=== PATIENT | male | born 1975 | race Caucasian/White ===

== ENCOUNTER 2020-10-15 15:00 | Outpatient (RCR) | payer OTHER, SELFPAY ==
--- NOTE | 2020-09-24 15:13 | PTOPEVAL ---
Thank you for referring Daniel Jackson II to [facility].? The patient is scheduled to be seen for therapy? 2 x/week for 5 weeks. Please review, sign, date and return this plan of care NABILA. I agree with and certify that the following plan of care is medically necessary. Referring Physician Date Attending Provider: John Gentile MD Referring Provider: *PT Outpatient Evaluation Start: 09/24/20 13:52 Freq: Status: Active Protocol: Document 09/24/20 13:52 NICO (Rec: 09/24/20 14:40 NICO [email or web address]) Therapy Assessment Status Assessment Status Assessment Status Evaluation Outpatient Past Medical History Past Medical History Source of Past Medical History Patient,Recalled from Previous Visit, Confirmed with Patient /Family Cardiovascular History Hx Hypertension Yes Gastrointestinal History Hx Gastroesophageal Reflux Disease Yes Musculoskeletal History Hx Orthopedic Surgery Yes: radial tunnel and tennis elbow surgery~7 yrs ago Evaluation Information Problem Diagnosis right knee pain Onset 07/07 Additional Evaluation Detail knee injection 09/04/20 Subjective Information Reports 3 months ago or so was Query Text:As Reported By Patient/ 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 Around that time he developed this posterior pain in his right knee which has been unremitting. He reports the injection helped his pain significantly. But he cont to have difficulty getting off of any surfaces or on/off the floor. Reports a ripping/ stabbing pain in the posterior right knee region. He reports limitations with walking, prolonged standing, steps, squating and work related task. He would like to return to his normal work and recreational activities without the pain. Pain Assessment Timing of Pain Assessment Timing of Pain Assessment Assessment Pain Scale Pain Scale Used Numeric (1 - 10) Self Report Pain Assessment Right Knee(s) Reported Pain Level 4 Pain Description Stabbing Greatest Pain Intensity 7 Pain Score Pain Score
--- NOTE | 2020-10-08 13:57 | PCPTNOTE ---
Patient called & cancelled scheduled appointment this week due to being in contact with someone with COVID-19.
--- NOTE | 2020-10-15 16:04 | PTOPEVAL ---
Thank you for referring Daniel Jackson II to [facility].? Pt has been seen for 6 therapy visits from 09/24/20-10/15/20. He missed 2 visits due to COVID isolation. He demonstrates limited progress with therapy goals, due to cont knee pain with functional work related task. He is indep with HEP at this time. No additional therapy scheduled at this time. Will hold chart open for 2 weeks. Please review, sign, date and return this plan of care NABILA. I agree with and certify that the following plan of care is medically necessary. Referring Physician Date Attending Provider: John Gentile MD *PT Outpatient Evaluation Start: 09/24/20 13:52 Freq: Status: Active Protocol: Document 10/15/20 15:00 NICO (Rec: 10/15/20 15:53 CAP [id number]) Therapy Assessment Status Assessment Status Assessment Status Re-evaluation Outpatient Past Medical History Past Medical History Source of Past Medical History Patient,Recalled from Previous Visit, Confirmed with Patient /Family Cardiovascular History Hx Hypertension Yes Gastrointestinal History Hx Gastroesophageal Reflux Disease Yes Musculoskeletal History Hx Orthopedic Surgery Yes: radial tunnel and tennis elbow surgery~7 yrs ago Evaluation Information Problem Diagnosis right knee pain Onset 07/07 Additional Evaluation Detail knee injection 09/04/20 Reports 3 months ago or so was doing a lot of chintan work and was kneeling/squatting quite a bit at that point. Around that time he developed this posterior pain in his right knee which has been unremitting. He reports the injection helped his pain significantly. Subjective Information Reports his knee pain Query Text:As Reported By Patient/ increased last week. He was Family not preforming any increased activities that would have been associated with the pain. Reports the pain is not stabbing pain but constant ripping, ache pain in the posterior right knee region. He was able to lacey a 2 mile walk on Wednesday, but had increased pain on Wednesday. He cont to have pain and limitations with negotiating steps. He report
--- NOTE | 2020-11-04 09:52 | PCPTNOTE ---
Admitting Provider: Attending Provider: John Gentile MD Patient:Daniel Jackosn II Date of :1975 Discharge Note Patient has not returned for any further treatments since 10/15/2020, therefore he will be discharged at this time. Patient?s initial visit was on 09/24/2020 14:00 and he had a total of 6 visits. Pt had a f/u with his MD with re-eval/discharge note sent. The goals have been partially met. Thank you for referring this patient to [facility]. Please review, sign, date and return this discharge summary NABILA. I have been updated about the patient's current status and I agree with discharge from the above service at this time. Referring Physician Date
== END 2020-12-09 12:14 | disposition home or self-care (01) ==
LOC: ANHPT 15:00
PROVIDERS: PCP Internal Medicine; Visit Provider Orthopaedic Surgery
DX: M25.561 Pain in right knee (principal)
CPT/HCPCS: 97014; 97110; 97140; 97161; G0283

== ENCOUNTER 2020-10-18 15:19 | Emergency (ER) | payer OTHER, SELFPAY ==
[2020-10-18 15:22] VITALS: BP 140/90; PULSE 103; RESP 18; TEMP 36.2; O2SAT 97
--- NOTE | 2020-10-18 16:05 | ED.EYEPROB ---
HPI - Eye Problem General Chief complaint: Eye Problems Stated complaint: eye injury Time Seen by Provider: 10/18/20 15:29 History of Present Illness HPI Narrative: Patient is a 45-year-old male who presents the ER with trauma to his left eye. Patient was pulling a nail out of a board when it flew backwards and struck him in the eye. Momentary blurriness but now has normal range of motion normal vision. Noted a little bit of blood coming from medial aspect of the eye initially but is controlled. Tetanus not up-to-date. Related Data Home Medications Medication Instructions Recorded Confirmed aspirin 81 mg tablet,delayed 81 mg PO DAILY 01/31/20 10/16/20 release fexofenadine 180 mg tablet 180 mg PO DAILY 01/31/20 10/16/20 Allergies Allergy/AdvReac Type Severity Reaction Status Date / Time CLAYTON Inhibitors Allergy Mild Anaphylaxis Verified 10/18/20 16:15 ibuprofen Allergy Mild Anaphylaxis Verified 10/18/20 16:15 Review of Systems Constitutional: Constitutional: Denies chills, Denies fever(s) and Denies weakness Eyes: Eyes: Denies change in vision and Denies photophobia PMFSH Past Medical History Medical History BMI 27.0-27.9,adult BMI 29.0-29.9,adult Essential hypertension Gastroesophageal reflux disease Mixed hyperlipidemia Radial tunnel syndrome surgery 2016, Dr. Ballard Surgical History Surgical History H/O elbow surgery [address] Ballard Family History Family History Father Heart disease Hypertension Social History Social History Smoking packs per day: 1 Smoking cigarettes per day: 20.0 Years smoked: 20 Smoking pack-years: 20.00 Smoking status: Current every day smoker Tobacco type: cigarettes Alcohol intake: current Substance use: never Additional occupation/education comments: [employer] Gender identity (if verbalized by the patient): Male Exam Narrative: Exam Narrative: GENERAL: Well-appearing, well-nourished, and in no acute distress. HEAD: Normocephalic, atraumatic. EYES: PERRL and EOMI. left eye with approximately 1 cm vertical medial conjunctival laceration that does not affect the sclera. No some conjunctival hemorrhage. No corneal abrasion or traumatic hyphema. No Nidia sign. NEURO: Alert and oriented x3. PSYCH: Normal mood and affect. Course Course Emergency Course: Tetanus updated. Recommend topical antibiotic and eyedrops. Follow-up with optometry. Vital Signs Vital signs: Vital Signs Temperature 97.1 F L 10/18/20 15:22 Pulse Rate 103 H 10/18/20 15:22 Respiratory Rate 18 10/18/20 15:22 Blood Pressure 140/90 10/18/20 15:22 Pulse Oximetry 97 10/18/20 15:22 Temperature 97.1 F L 10/18/20 15:22 Pulse Rate 103 H 10/18/20 15:22 Respiratory Rate 18 10/18/20 15:22 Blood Pressure 140/90 10/18/20 15:22 Pulse Oximetry 97 10/18/20 15:22 Discharge Plan Discharge Clinical Impression: Laceration of conjunctiva Patient Disposition: Home, Self-Care Condition: Stable Instructions: Antibiotic Form Additional Instructions: There is a very small superficial laceration of the conjunctiva of your eye that does not violate the structures of your eye internally. Is recommended that you use refreshing eyedrops to keep your eye lubricated and then apply topical antibiotic. You should contact a eye doctor to follow-up with at the beginning of the week. Return to the ER if you cannot see, your eye is red and hot and swollen, you cannot see, you have other concerns. If you do return to the ER is recommended you go to [facility] or [facility] that have ophthalmologists on-call within the hospital. Prescriptions: New erythromycin 5 mg/gram (0.5 %) ointment 0.5 inch ophthalmic (eye) QID Qty: 3.5 RF: 0
[2020-10-18] MEDS: TETANUS,DIPHTHERIA,AC PERTUSSIS ADULT (0.5 ML) BOOSTRIX IM (16:20)
[2020-10-18 16:28] VITALS: BP 125/78; PULSE 86; RESP 15; O2SAT 95
== END 2020-10-18 16:30 | disposition home or self-care (01) ==
PROVIDERS: Emergency Provider Emergency Medicine; PCP Internal Medicine
DX: S05.32XA Ocular laceration without prolapse or loss of intraocular tissue, left eye, initial encounter (principal); Z79.82 Long term (current) use of aspirin; Z23 Encounter for immunization; I10 Essential (primary) hypertension; K21.9 Gastro-esophageal reflux disease without esophagitis; E78.2 Mixed hyperlipidemia; F17.210 Nicotine dependence, cigarettes, uncomplicated; W20.8XXA Other cause of strike by thrown, projected or falling object, initial encounter
CPT/HCPCS: 90471; 90715; 99283; A9270

== ENCOUNTER → 2020-10-24 17:01 | Outpatient (CLI) | payer OTHER, SELFPAY ==
--- NOTE | ~2020-10-24 | MR_ITS ---
EXAMINATION: MR knee RT wo con DATE: 10/24/2020 18:31 INDICATION: Right knee pain. TECHNIQUE: Magnetic resonance imaging (MRI) of the right knee was performed without intravenous contr ast. Sequences included axial PD-weighted FS FSE, coronal PD-weighted FSE and PD-weighted FS FSE, sag ittal PD-weighted FSE, and sagittal T2-weighted FS FSE. COMPARISON: Right knee radiographs 09/04/2020 FINDINGS: Medial compartment: Medial meniscus is normal. There is cartilage surface irregularity of femoral condyle and tibial cond yle. Lateral compartment: Lateral meniscus is normal. Lateral compartment cartilage is normal. Patellofemoral compartment: There is cartilage surface irregularity of patellar medial facet. Trochlear cartilage is normal. Ligaments and tendons: The anterior cruciate ligament is normal. There are changes of sprain of posterior cruciate ligament characterized by thickening and increased signal intensity. There is mild edema medial collateral lig ament, consistent with mild sprain. There are changes of prior sprain of fibular collateral ligament characterized by thickening and increased signal intensity. There is mild patellar tendinopathy. Fluid: There is a small knee joint effusion. IMPRESSION: 1. Mild chondrosis of medial and patellofemoral compartments. 2. Mild sprain of medial collateral ligament (grade 1). 3. Sprain of posterior cruciate ligament. 4. Small knee joint effusion. Reviewed, dictated and finalized at location A. [employer]ION[employer]UCATION PROFESSIONAL
== END ==
PROVIDERS: PCP Internal Medicine; Visit Provider Orthopaedic Surgery
DX: M25.561 Pain in right knee (principal); G89.29 Other chronic pain; M22.2X1 Patellofemoral disorders, right knee; S83.411A Sprain of medial collateral ligament of right knee, initial encounter; S83.521A Sprain of posterior cruciate ligament of right knee, initial encounter; M25.461 Effusion, right knee
CPT/HCPCS: 73721

== ENCOUNTER 2022-06-01 09:57 | Outpatient (CLI) | payer OTHER, SELFPAY ==
--- NOTE | ~2022-06-01 | XR_ITS ---
EXAMINATION: XR abdomen obstructive series DATE: 06/01/2022 10:21 INDICATION: Abdominal bloating TECHNIQUE: Upright and supine views of the abdomen were obtained. COMPARISON: None. FINDINGS: There is no free intraperitoneal gas or evidence of bowel obstruction. There is a moderate volume of colonic stool. The visualized lung bases are clear. There is a phlebolith of the right pelv is. IMPRESSION: 1. Nonobstructive bowel gas pattern. 2. Constipation. Reviewed, dictated and finalized at location A.
== END 2022-06-01 09:58 | disposition home or self-care (01) ==
PROVIDERS: PCP Internal Medicine; Visit Provider Internal Medicine
DX: R14.0 Abdominal distension (gaseous) (principal); K59.00 Constipation, unspecified
CPT/HCPCS: 74019

== ENCOUNTER 2022-08-10 10:00 | Outpatient (RCR) | payer OTHER, SELFPAY ==
--- NOTE | 2022-07-14 15:56 | PTOPEVAL1 ---
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 Discussed with pt and plan for decreased frequency, increased duration therapy sessions with focus on providing pt the tools to perform activities at home to improve comfort, strength, and function. Pt will benefit from therapy for skilled services in maintaining left shoulder ROM, addressing postures to reduce left shoulder pain, strengthening and neuromuscular retraining for LLE to improve balance and ambulation. Plan of Care Interventions Manual Therapy,Neuro Re-education,Therapeutic Activities,Therapeutic Exercise,Self-Care/Home Management,Other Other Interventions consider dynamic AFO PT Services Indicated Yes Treatment Frequency and 1x weekly x 12 weeks Duration These treatments will address the objective and functional deficits as defined above. The patient will be advanced safely and appropriately in order for the patient to progress towards his/her prior level of function. Additional exercises will be introduced and as well as a comprehensive home exercise program upon discharge, if needed, ?to ensure carryover of functional gains achieved in the clinic. This treatment plan has been reviewed and agreement upon by the patient.
--- NOTE | 2022-08-04 07:23 | PCPTNOTE ---
Patient called & cancelled scheduled appointment this date due to being admitted to the hospital.
--- NOTE | 2022-08-10 10:47 | PTOPDC ---
Assessment and note entered by Michelle Carpenter, PT Evaluation Information Assessment Status Discharge Diagnosis L sided weakness Onset 04/24/22 Subjective Information Matt reports: using the cane sometimes, for distances and when tired; have been doing the leg exercises; was hospitalized due to chemo, but feeling better now; has not had any falls; sees Dr Gentile next week about his shoulder; has additional chemo next week; agrees to discharge from PT services; to continue with the exercises at home and walking as much as he can; Reported Pain Level Pain Score Self Report Additional Pain Score Comments pain in L shoulder staying at 3/10; to have injection next week with Dr Gentile; have been doing the stretches at home and doing pullys at home; Assessment PT Clinical Summary Matt has received 3 PT sessions, for L weakness; Compared to the initial evaluation: he has improved in all areas: less pain rating L shoulder with increased ROM of shoulder; 2 minute walking test distance increased to 375' and did not use the cane; increased strength of L LE; Lloyd balance score is 56/56; All goals were achieved; He is to continue with his HEP and progress activity as tolerated. He has additional chemo treatments, so instructed him to do activity/HEP and walking as tolerated. He has an appointment with Dr Gentile for his L shoulder next week. If additional therapy is needed, will give him a new order. Discharge PT at this time. Plan of Care PT Services Indicated No
== END 2022-08-10 15:10 | disposition home or self-care (01) ==
LOC: ANHPT 10:00
PROVIDERS: PCP Internal Medicine
DX: C85.89 Other specified types of non-Hodgkin lymphoma, extranodal and solid organ sites (principal); M25.512 Pain in left shoulder; G89.29 Other chronic pain
CPT/HCPCS: 97110; 97162

== ENCOUNTER 2023-04-06 14:30 | Outpatient (RCR) | payer OTHER, SELFPAY ==
--- NOTE | 2023-03-10 16:01 | PTOPEVAL1 ---
Assessment and note entered by Ravinder De Leon, PT Evaluation Information Assessment Status Evaluation Diagnosis weakness Subjective Information Patient reports having weakness in the RLE secondary to chemo and prolonged time in the hospital. He reports the R knee will buckle with quick movement, walking on uneven surfaces or doing stairs. Denies numbness or localized pain, although he has generalized pain. Reported Pain Level Pain Score 6: Self Report Assessment PT Clinical Summary Dilip is a 50 year old male coming into the clinic with a diagnosis of L knee weakness. He has decreased strength in the entire L LE including hip and ankles, but big trouble with eccentric quad contraction. Physical therapy will work on strengthening, balance, and endurance. Plan of Care Interventions Gait Training,Hot Pack/Cold Pack,Manual Therapy, Neuro Re-education,Patient/Caregiver Education, Therapeutic Activities,Therapeutic Exercise, Ultrasound Other Interventions taping, cupping, IASTM PT Services Indicated Yes Treatment Frequency and 1-2x/wk for 4 weeks Duration These treatments will address the objective and functional deficits as defined above. The patient will be advanced safely and appropriately in order for the patient to progress towards his/her prior level of function. Additional exercises will be introduced and as well as a comprehensive home exercise program upon discharge, if needed, ?to ensure carryover of functional gains achieved in the clinic. This treatment plan has been reviewed and agreement upon by the patient.
--- NOTE | 2023-03-10 16:01 | OPREHPOC ---
Outpatient Therapy Plan of Care This is a Multidisciplinary Plan of Care that may contain components documented by all disciplines (PT, OT, and ST.) PT Problem 1 PT Problem #1 Knowledge Deficit PT Goal 1 Goal Independent with HEP Target Visit 6 PT Problem 2 PT Problem #2 Impaired Balance PT Goal 1 Goal able to do single limb stance 15 secs with eyes closed on LLE. Target Visit 6 PT Problem 3 PT Problem #3 Impaired Strength PT Goal 1 Goal LLE grossly 4+/5 Target Visit 6 PT Goal 2 Goal L Knee able to do 10 eccentric step downs on 4 in step Target Visit 6 PT Problem 4 PT Problem #4 Impaired Functional Mobil PT Goal 1 Goal able to go up and down 1 flight of stairs with alternating step pattern. Target Visit 6
--- NOTE | 2023-04-06 15:10 | PTOPDC ---
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 States he feels a lot stronger, but the muscle memory is not there for the L knee regarding going up and down stairs worse going down the steps. Patient feels safe being discharged and continuing to work on his strengthening at home. Reported Pain Level Pain Score 6: Self Report Assessment PT Clinical Summary Dilip is a 48 year old male coming into the clinic with a diagnosis of LLE weakness following cancer treatment. Patient was evaluated on 03/10/23 and has attended 8 visits so far. The patient did meet his education goal, did make significant progress especially in ankle and hip strength. Physical therapy believed the eccentric quad contraction will become better as his nerves heal from the cancer treatments. Discharged from skilled physical therapy. Plan of Care PT Services Indicated No
== END 2023-04-07 07:00 | disposition home or self-care (01) ==
LOC: ANHPT 14:30
PROVIDERS: PCP Family Medicine; Visit Provider Nurse Practitioner
DX: R53.1 Weakness (principal)
CPT/HCPCS: 97014; 97110; 97112; 97161; 97530; G0283

== ENCOUNTER 2024-12-27 19:47 | Emergency (ER) | payer OTHER, SELFPAY ==
[2024-12-27 19:48] VITALS: BP 127/79; PULSE 91; RESP 16; TEMP 36.7; O2SAT 98
--- OUTSIDE RECORDS SUMMARY | 2024-12-27 19:49 | XMS_ITS | Encounter Summary ---
Author Organization [facility] Address [address] [place] [address] Phone Care Team Providers Care Burr Sander Name Role Phone Hermilo Valiente DO Primary Care Provider [phone] Jose Diallo MD Unavailable [phone] Encounter Details Date Type Department Care Team (Late st Contact Info) Description 05/20/2022 Telephone [facility] [address] [place] [address] Jose Diallo MD [address] [place] [address] Social History Tobacco Use Types Packs/Day Years Used Date Smoking Tobacco: Every Day Smokeless Tobacco: Never PHQ-2 Answer Date Recorded Total Score - Questions 1-9 0 04/18 Sex and Gender Information Value Date Recorded Sex Assigned at Not on file Legal Sex Male 11:16 AM CDT Gender Identity Not on file Sexual Orientation Not on file COVID-19 Exposure Response Date Recorded In the last 10 days, have yo u been in contact with someone who was confirmed or suspected to have Coronavirus/COVID-19? No / Unsure 05/15/2022 7:50 AM CDT documented as of this encounter Miscellaneous Notes * Telephone Encounter - Madai Higginbotham - 05/20/2022 9:34 AM CDT [facility] IS OUT UNTIL 06/03 AND [facility] IS OUT UNTIL 06/05 DR SCHULTZ'S OFFICE CAN NOT GET HIM IN UNTIL September THEY HAVE SENT DOCS A MESSAGE TO SEE ABOUT WORKING HIM IN [place] BUT NO RESPONSES YET... PLEASEADVISE documented in this encounter Plan of Treatment Not on file documented as of this encounter Visit Diagnoses Not on filedocumented in this encounter Care Teams Burr Sander Relationship Specialty Start Date End Date Hermilo Valiente DO [address] [address] PCP - General Internal Medicine 04/27/22 Jose Diallo MD [address] [place] [id number] Consulting Physician Oncology 05/01/22 documented as of this encounter
--- OUTSIDE RECORDS SUMMARY | 2024-12-27 19:49 | XMS_ITS | Clinical Summary ---
Author Organization [facility] Address [address], [facility] [address] [place] [address] Phone Care Team Providers Care Carpenter Repair Name Role Phone Hermilo Valiente Primary Care Provider [phone] Jose Diallo MD Unavailable [phone] Allergies Active Allergy Reactions Criticality Noted Date Comments Anjel Inhibitors Anaphylaxis High 02/20/2022 Ibuprofen Anaphylaxis High 02/20/2022 Medications atorvastatin (LIPITOR) 40 MG Tablet 2 Active fexofenadine (VASU) 180 MG Tablet Take 180 mg by mouth. Active baclofen (LIORESAL) 5 MG Tablet TAKE 1 TABLET BY MOUTH THREE TIMES DAILY 2 Active levETIRAcetam (KEPPRA) 500 MG Tablet Take 1 Tablet by mouth 2 times daily. 60 Tablet 2 Active candesartan-hyd rochlorothiazid e (ATACAND HCT) 32-12.5 MG Tablet 2 Active dilTIAZem (CARDIZEM CD) 300 MG CAPSULE SR 24 HR 2 Active ketoconazole (NIZORAL) 2 % Cream APPLY TOPICALLY TO THE AFFECTED AREA TWICE DAILY 2 Active nicotine polacrilex (NICORETTE) 4 MG Gum 5MG BUCCALLY EVERY 2 HOURS NEEDED FOR NICOTINE CRAVINGS 2 Active Social History Tobacco Use Types Packs/Day Years Used Date Smoking Tobacco: Every Day Smokeless Tobacco: Never PHQ-2 Answer Date Recorded Total Score - Questions 1-9 0 04/18 Sex and Gender Information Value Date Recorded Sex Assigned at Not on file Legal Sex Male 11:16 AM CDT Gender Identity Not on file Sexual Orientation Not on file Last Filed Vital Signs Vital Sign Reading Time Taken Comments Blood Pressure 140/100 06/03/2022 2:39 PM CDT Pulse 86 06/03/2022 2:39 PM CDT Temperature 36.2 C (97.1 F) 06/03/2022 2:39 PM CDT Respiratory Rate 18 06/03/2022 2:39 PM CDT Oxygen Saturation 98% 06/03/2022 2:39 PM CDT Inhaled Oxygen Concentration - - Weight 96.2 kg (212 lb) 06/03/2022 2:39 PM CDT Height 188 cm (6' 2 ) 06/03/2022 2:39 PM CDT Body Mass Index 27.22 06/03/2022 2:39 PM CDT Plan of Treatment Health Maintenance Due Date Last Done Comments Hepatitis B Immunization (1 of 3 - 19+ 3-dose series) 02/07/1995 Colonoscopy 02/07/2021 Colorectal Cancer Screening 02/07/2021 Influenza Immunization (#1) 2024 SARS-COV-2 Immunization (2023- season) 2024 Respiratory Syncytial Virus (RSV) Immunization (Adult) (1 - 1-dose 75+ series) 02/07/2051 DTaP/Tdap/Td Immunization Discontinued 10/18/2020 TdaP Immunization Completed 10/18/2020 Hepatitis C Virus (HCV) Screening Completed 022 Meningococcal Immunization (ACWY) Aged Out No longer eligible based on patient's age to complete this topic Pneumococcal Immunization Combined Aged Out No longer eligible b ased on patient's age to complete this topic Rotavirus Immunization Aged Out No lo nger eligible based on patient's age to complete this topic Insurance [employer] Care Teams Carpenter Repair Relationship Specialty Start Date End Date Hermilo Valiente DO [address] [facility] [address] [place] [address] PCP - General Internal Medicine 04/27/22 Jose Diallo MD [address] [place] [id number] Consulting Physician Oncology 05/01/22
--- OUTSIDE RECORDS SUMMARY | 2024-12-27 19:49 | XMS_ITS | Encounter Summary ---
Author Organization [facility] Address [address] [place] [address] Phone Care Team Providers Care Respite Worker Name Role Phone Hermilo Valiente DO Primary Care Provider [phone] Jose Diallo MD Unavailable Reason for Visit * Reason Comments Medication Refill Encounter Details Date Type Department Care Team (Late st Contact Info) Description 07/30/2022 Refill [facility] [address] [place] [address] Jose Diallo MD [address] [place] [phone] Medication Refill Social History Tobacco Use Types Packs/Day Years Used Date Smoking Tobacco: Every Day Smokeless Tobacco: Never PHQ-2 Answer Date Recorded Total Score - Questions 1-9 0 04/18 Sex and Gender Information Value Date Recorded Sex Assigned at Not on file Legal Sex Male 11:16 AM CDT Gender Identity Not on file Sexual Orientation Not on file documented as of this encounter Miscellaneous Notes * Telephone Encounter - Jose Diallo MD - 07/30/2022 3:57 PM CDT Nyasia hwang * Telephone Encounter - Wally-Yvette Padilla RN - 07/30/2022 10:16 AM CDT Refill request from pharmacy. Please fill if appropriate. documented in this encounter Plan of Treatment Not on file documented as of this encounter Visit Diagnoses Not on filedocumented in this encounter Care Teams Respite Worker Relationship Specialty Start Date End Date Hermilo Valiente DO [address] [address] PCP - General Internal Medicine 04/27/22 Jose Diallo MD [address] [place] [phone] Consulting Physician Oncology 05/01/22 documented as of this encounter
--- OUTSIDE RECORDS SUMMARY | 2024-12-27 19:49 | XMS_ITS | Clinical Summary ---
Author Organization [facility] Address [address] [place] [address] Care Team Providers Care Shear Scrapman Name Role Phone Hermilo Valiente DO Primary Care Provider [phone] Source Comments [facility],non-owned Affiliates and Associated Physician Practices is amultiple site organization consisting of ambulatory clinics and hospital sitesin [place], [place], [place] and [place]. This disclosure is being madepursuant to the Care Everywhere program and may not contain all information available regarding this patient. Last updated 18.[facility] Seamless Receipts Allergies Active Allergy Reactions Criticality Noted Date Comments Anjel Inhibitors Anaphylaxis High 05/21/2022 Ibuprofen Anaphylaxis High 05/21/2022 Medications * Be aware that medications may not be up to date on this document. Alwaysverify current medications with the patient. Medication Sig Dispensed Refills Start Date End Date Status atorvastatin (Lipitor) 40 MG tablet Take 40 mg by mouth daily with dinner 04/28/2022 Active baclofen (Lioresal) 5 MG TABS Take 1 tablet by mouth 3 times daily 05/11/2022 Active candesartan (Atacand) 32 MG tablet Take 32 mg by mouth daily with dinner Active clonazePAM (KlonoPIN) 0.5 MG tablet Take 0.5 mg by mouth once daily as needed 05/15/2022 Active dexAMETHasone (Decadron) 2 MG tablet Take 2 mg by mouth 2 times daily 05/15/2022 Active dilTIAZem ER 24hr (Tiazac) 300 MG capsule Take 300 mg by mouth daily with dinner 04/28/2022 Active fexofenadine (Rocio) 180 MG tablet Take 180 mg by mouth daily with dinner Active levETIRAcetam (Keppra) 500 MG tablet Take 500 mg by mouth 2 times daily 04/28/2022 Active pantoprazole EC (Protonix) 40 MG tablet Take 40 mg by mouth daily with breakfast 05/07/2022 Active Active Problems Problem Noted Date Diagnosed Date 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 Brain mass 05/20/2022 Family History Medical History Relation Name Comments Hypertension Father Relation Name Status Comments Father Social History Tobacco Use Types Packs/Day Years Used Date Smoking Tobacco: Former Cigarettes 1 20 Smokeless Tobacco: Never Alcohol Use Standard Drinks/Week Comments Yes 0 (1 standard drink = 0.6 oz pur e alcohol) occ Sex and Gender Information Value Date Recorded Sex Assigned at Not on file Gender Identity Not on file Sexual Orientation Not on file Last Filed Vital Signs Vital Sign Reading Time Taken Comments Blood Pressure 133/92 05/22/2022 12:21 PM CDT Pulse 73 05/22/2022 8:44 AM CDT Temperature 36.8 C (98.3 F) 05/22/2022 12:21 PM CDT Respiratory Rate 16 05/22/2022 12:21 PM CDT Oxygen Saturation 96% 05/22/2022 12:21 PM CDT Inhaled Oxygen Concentration - - Weight 98.4 kg (217 lb) 05/21/2022 12:34 PM CDT Height 188 cm (6' 2 ) 05/21/2022 12:34 PM CDT Body Mass Index 27.86 05/21/2022 12:34 PM CDT Plan of Treatment Health Maintenance Due Date Last Done Comments COLOGUARD (AGES 45-75) - COL ON CA SCREENING 1976 COLON MONITORING 1976 COLONOSCOPY - COLON CA SCREENING 1976 CT COLONOGRAPHY - COLON CA SCREENING 1976 Colorectal Cancer Screening 1976 FIT - COLON CA SCREENING 1976 FLEX SIG - COLON CA SCREENING 1976 HIV SCREENING 02/07/1991 HEPATITIS C SCREENING 02/03/1994 DTAP/TDAP/TD VACCINES (1 - Tdap) 02/07/1995 HEPATITIS B VACCINE (1 of 3 - 19+ 3-dose series) 02/07/1995 COVID-19 VACCINE (1 - 2023-2 5 season) 2024 INFLUENZA VACCINE (#1) 2024 DEPRESSION SCREENING 10/18/2024 ZOSTER VACCINE (1 of 2) 02/07/2026 HIB VACCINE Aged Out No longer eligi ble based on patient's age to complete this topic HPV VACCINE Aged Out No longer eligi ble based on patient's age to complete this topic MENINGOCOCCAL (Group B) VACC INE SHARED DECISION-MAKING Aged Out No longer eligibl e based on patient's age to complete this topic MENINGOCOCCAL GROUPS A/C/Y/W VACCINE Aged Out No longer eligible b ased on patient's age to complete this topic PNEUMOCOCCAL VACCINE Aged Out No long er eligible based on patient's age to complete this topic Advance Directives * Full Code (Latest Code Status on File) Date Activated Date Inactivated Comments 05/21/2022 6:42 PM 05/22/2022 1:53 PM * Full Code Date Activated Date Inactivated Comments 05/21/2022 6:26 PM 05/21/2022 6:42 PM Care Teams Shear Scrapman Relationship Specialty Start Date End Date Hermilo Valiente DO [address] [place] [address] PCP - General Internal Medicine 05/21/22
--- OUTSIDE RECORDS SUMMARY | 2024-12-27 19:49 | XMS_ITS | Clinical Summary ---
Author Organization [facility] Address [address] [place] [address] Care Team Providers Care Dock Grader Name Role Phone Hermilo Valiente DO Primary Care Provider [phone] Allergies Active Allergy Reactions Criticality Noted Date Comments Anjel Inhibitors Anaphylaxis High 02/20/2022 Ibuprofen Anaphylaxis High 02/20/2022 Medications fexofenadine (VASU) 180 MG tablet Take 180 mg by mouth daily. Active aspirin 81 MG chewable tablet Chew 1 tablet (81 mg total) by mouth daily. Please stop this medication on 04/30. 30 tablet 2 Active levETIRAcetam 500 MG tablet Take 1 tablet (500 mg total) by mouth 2 (two) times daily. 60 tablet 2 Active dilTIAZem CD 300 MG 24 hr capsule Take 1 capsule (300 mg total) by mouth daily. 30 capsule 2 Active Additional Information Patient taking differently:300 mg OralEvery evening, Reported on 05/28/2022 atorvastatin 40 MG tablet Take 1 tablet (40 mg total) by mouth nightly at bedtime. 30 tablet 2 Active pantoprazole EC (PROTONIX) 40 MG tablet Take 1 tablet (40 mg total) by mouth daily. 30 tablet 2 Active clonazePAM (KLONOPIN) 0.5 MG tabletIndicatio ns:Anxiety Take 1 tablet (0.5 mg total) by mouth nightly as needed for Anxiety. 10 tablet 2 Active Candesartan Cilexetil-HCTZ 32-12.5 MG Tab Take 1 tablet by mouth daily. 2 Active NYSTOP powder Apply 1 Application topically 2 (two) times daily. 2 Active nicotine polacrilex (NICORETTE) 4 MG Gum gum Take 1 each by mouth as needed. 2 Active Active Problems Problem Noted Date Diagnosed Date Adrenal mass ([facility]) 05/28/2022 Brain mass 05/05/2022 Intracranial mass 04/26/2022 Resolved Problems Problem Noted Date Diagnosed Date Resolved Date CVA (cerebral vascular accid ent) ([facility]) 04/25/2022 04/28/2022 Family History Medical History Relation Comments Hypertension Father Relation Status Comments Father Alive Mother Alive Paternal Grandfather Social History Tobacco Use Types Packs/Day Years Used Date Smoking Tobacco: Former Cigarettes 1 15 0 04/25/2007 - 04/25/2022 Smokeless Tobacco: Current Tobacco Cessation:Ready to Q uit: Yes; Counseling Given: Yes Comments:Nicotine pouches Alcohol Use Standard Drinks/Week Comments Yes 0 (1 standard drink = 0.6 oz pur e alcohol) occasion Sex and Gender Information Value Date Recorded Sex Assigned at Not on file Legal Sex Male 4:07 PM CDT Gender Identity Not on file Sexual Orientation Not on file Last Filed Vital Signs Vital Sign Reading Time Taken Comments Blood Pressure 121/79 05/29/2022 9:17 AM CDT Pulse 76 05/29/2022 9:17 AM CDT Temperature 36.9 C (98.4 F) 05/28/2022 8:10 PM CDT Respiratory Rate 16 05/29/2022 9:17 AM CDT Oxygen Saturation 96% 05/29/2022 9:17 AM CDT Inhaled Oxygen Concentration - - Weight 95.8 kg (211 lb 3.2 oz) 05/28/2022 9:00 P M CDT Height 188 cm (6' 2 ) 05/15/2022 12:16 PM CDT Body Mass Index 27.12 05/15/2022 12:16 PM CDT Plan of Treatment Health Maintenance Due Date Last Done Comments Colorectal Cancer Screening Colonoscopy (10 Years) 1976 Annual Physical 02/07/1979 Hepatitis C 02/07/1994 Hepatitis B Vaccines (1 of 3 - 19+ 3-dose series) 02/07/1995 COVID-19 Vaccine (2023-2 5 season) 2024 06/12/2021, 05/15/2021 Influenza Adult (#1) 2024 DTaP, Tdap and Td Vaccines ( 2 - Td or Tdap) 10/18/2030 10/18/2020 Meningococcal B Vaccine Aged Out No l onger eligible based on patient's age to complete this topic Meningococcal Vaccine Aged Out No rodolfo negar eligible based on patient's age to complete this topic Pneumococcal Vaccine: Pediatrics (0 to 5 Years) and At-Risk Patients (6 to 64 Years) Aged Out No longer eligible b ased on patient's age to complete this topic RSV Immunizations Under 20 Months Aged Out No longer eligible b ased on patient's age to complete this topic Goals Goal Patient Goal Type Associated Problems Recent Progress Patient-Stated? 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
--- OUTSIDE RECORDS SUMMARY | 2024-12-27 19:50 | XMS_ITS | Referral Summary ---
Author Organization [facility] Address [address] [place] [address] Care Team Providers Care Heater Mechanic Name Role Phone Hermilo Valiente DO Primary Care Provider [phone] Source Comments [facility],non-owned Affiliates and Associated Physician Practices is amultiple site organization consisting of ambulatory clinics and hospital sitesin [place], [place]. This disclosure is being madepursuant to the Care Everywhere program and may not contain all information available regarding this patient. 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
--- OUTSIDE RECORDS SUMMARY | 2024-12-27 19:50 | XMS_ITS | Patient Health Summary ---
Author Organization [facility] Address [address] [place] [address] Care Team Providers Care Ticket Agent Name Role Phone Hermilo Valiente DO Primary Care Provider [phone] Note from [facility],non-owned Affiliates and Associated Physician Practices is amultiple site organization consisting of ambulatory clinics and hospital sitesin [place], [place], [place] and [place]. This disclosure is being madepursuant to the Care Everywhere program and may not contain all information available regarding this patient. Last updated 18.[facility] Allergies * Anjel Inhibitors(Anaphylaxis) -High Criticality * Ibuprofen(Anaphylaxis) -High Criticality Medications * Be aware that medications may not be up to date on this document. Alwaysverify current medications with the patient. * atorvastatin (Lipitor) 40 MG tablet(Started 04/28/2022) Take 40 mg by mouth daily with dinner * baclofen (Lioresal) 5 MG TABS(Started 05/11/2022) Take 1 tablet by mouth 3 times daily * candesartan (Atacand) 32 MG tablet Take 32 mg by mouth daily with dinner * clonazePAM (KlonoPIN) 0.5 MG tablet(Started 05/15/2022) Take 0.5 mg by mouth once daily as needed * dexAMETHasone (Decadron) 2 MG tablet(Started 05/15/2022) Take 2 mg by mouth 2 times daily * dilTIAZem ER 24hr (Tiazac) 300 MG capsule(Started 04/28/2022) Take 300 mg by mouth daily with dinner * fexofenadine (Rocio) 180 MG tablet Take 180 mg by mouth daily with dinner * levETIRAcetam (Keppra) 500 MG tablet(Started 04/28/2022) Take 500 mg by mouth 2 times daily * pantoprazole EC (Protonix) 40 MG tablet(Started 05/07/2022) Take 40 mg by mouth daily with breakfast Active Problems Problem Noted Date Diagnosed Date [...] Mass Index 27.86 05/21/2022 12:34 PM CDT Procedures * RENAL FUNCTION PANEL(Performed 05/22/2022) * MAGNESIUM BLOOD(Performed 05/22/2022) * CBC W/O DIFFERENTIAL(Performed 05/22/2022) * DIFFERENTIAL MANUAL(Performed 05/21/2022) * PTT [facility](Performed 05/21/2022) * PT-INR [facility](Performed 05/21/2022) * COMPREHENSIVE METABOLIC PANEL(Performed 05/21/2022) * CBC W AUTO DIFFERENTIAL(Performed 05/21/2022) Results * (ABNORMAL) RENAL FUNCTION PANEL (05/22/2022 4:21 AM CDT) BUN 15 7 - 26 mg/dL 05/22/2022 4:53 AM CDT [facility] Creatinine 0.48(L) 0.71 - 1.16 mg/dL 05/22/2022 4:53 AM [facility] Sodium 135(L) 136 - 145 mmol/L 05/22/2022 4:53 AM [facility] Potassium 3.8 3.5 - 4.5 mmol/L 05/22/2022 4:53 AM [facility] Chloride 101 98 - 107 mmol/L 05/22/2022 4:53 AM [facility] CO2 22 22 - 29 mmol/L 05/22/2022 4:53 AM [facility] Glucose 117(H) 70 - 115 mg/dL 05/22/2022 4:53 AM [facility] Albumin 3.0(L) 3.4 - 5.0 g/dL 05/22/2022 4:53 AM [facility] Calcium 8.4 8.4 - 10.2 mg/dL 05/22/2022 4:53 AM [facility] Phosphorus 3.9 2.8 - 5.1 mg/dL 05/22/2022 4:53 AM [facility] Anion Gap 16 8 - 18 05/22/2022 4:53 AM [facility] BUN/Creatinine Ratio 31(H) 7 - 23 05/22/2022 4:53 AM [facility] Osmolality Calculated 282 270 - 300 mOsm/kg 05/22/2022 4:53 AM [facility] eGFR by CKD-EPI >90 >=90 mL/min/1.7 3 m2 05/22/2022 4:53 AM [facility] Blood BLOOD SPECIMEN / Unknown Venipuncture / Unknown 05/22/2022 4:21 AM CDT 05/22/2022 4:21 AM T Laury Brewer MD LAB - CHEMISTRY ORDE [facility] Organization Address City/State/ZIP Co de Phone Number [facility] [address] [place] [address], [facility] [phone] * MAGNESIUM BLOOD (05/22/2022 4:21 AM CDT) Magnesium 2.0 1.6 - 2.6 mg/dL 05/22/2022 4:53 AM [facility] Blood BLOOD SPECIMEN / Unknown Venipuncture / Unknown 05/22/2022 4:21 AM CDT 05/22/2022 4:21 AM CDT Laury Brewer MD LAB - CHEMISTRY OCTAVIO SHAW [facility] [address] [place] [address], [facility] [phone] * (ABNORMAL) CBC W/O DIFFERENTIAL (05/22/2022 4:08 AM CDT) WBC 22.9(H) 3.5 - 10.5 10 3/uL 05/22/2022 4:13 AM [facility] RBC 5.20 4.30 - 5.70 10 6/uL 05/22/2022 4:13 AM [facility] Hemoglobin 16.2 12.0 - 17.6 g/dL 05/22/2022 4:13 AM [facility] Hematocrit 48.0 35.2 - 51.7 % 05/22/2022 4:13 AM [facility] MCV 92.3 80.7 - 98.3 fL 05/22/2022 4:13 AM [facility] MCH 31.2 26.7 - 34.0 pg 05/22/2022 4:13 AM [facility] MCHC 33.8 30.8 - 35.9 g/dL 05/22/2022 4:13 AM [facility] Platelet Count 252 150 - 400 10 3/uL 05/22/2022 4:13 AM [facility] RDW-SD 44.2 36.0 - 50.0 fL 05/22/2022 4:13 AM [facility] RDW-CV 13.1 11.2 - 14.8 % 05/22/2022 4:13 AM [facility] MPV 9.1(L) 9.4 - 12.9 fL 05/22/2022 4:13 AM [facility] nRBC Absolute 0.00 0 10 3/uL 05/22/2022 4:13 AM [facility] nRBC Auto 0.0 0 /100 WBC 05/22/2022 4:13 AM CDT [facility] Blood BLOOD SPECIMEN / Unknown Venipuncture / Unknown 05/22/2022 4:08 AM CDT 05/22/2022 4:08 AM CDT Laury Brewer MD LAB - HEMATOLOGY ORD ERABLES Performing Organization Address [place]/ZIP Co de Phone Number [address] [address], [facility] [phone] * PTT [facility] (05/21/2022 3:22 PM CDT) APTT 23.9 23.0 - 38.4 Seconds 05/21/2022 3:56 PM CDT [facility] Comment:Suggested therapeuti c range for full dose I.V. unfractionated heparin therapy for venous thromboembolism is 71 to 109 seconds. Blood BLOOD SPECIMEN / Unknown Venipuncture / Unknown 05/21/2022 3:22 PM CDT 05/21/2022 3:35 PM CDT Lucy Alanis MD LAB - COAGULATION OR DERABLES Performing Organization Address [place] Co de Phone Number [address] [address], [facility] [phone] * PT-INR [facility] (05/21/2022 3:22 PM CDT) PT 13.8 12.1 - 14.8 Seconds 05/21/2022 3:55 PM CDT [facility] INR 1.1 See Comment 05/21/2022 3:55 PM CDT [facility] Comment:The suggested therap eutic range for standard coumadin (warfarin) therapy is an INR of 2.0-3.0. For high-risk patients (Mechanical Mitral Valve Prosthesis, etc.), the suggested prophylactic therapeutic range is an INR of 2.5-3.5. Blood BLOOD SPECIMEN / Unknown Venipuncture / Unknown 05/21/2022 3:22 PM CDT 05/21/2022 3:35 PM CDT Lucy Alanis MD LAB - COAGULATION OR DERABLES [facility] [address] [place] [address], [facility] [phone] * (ABNORMAL) DIFFERENTIAL MANUAL (05/21/2022 3:22 PM CDT) WBC (corrected for NRBC) 25.9 10 3/uL 05/21/2022 4:36 PM [facility] Total Cell Count 100 05/21/2022 4:36 PM [facility] Neutrophils Absolute Manual 19.17(H) 1.60 - 7.00 10 3/uL 05/21/2022 4:36 PM [facility] Comment:(BANDS+SEGS) x WBC = NEUT # (ANC) Lymphocyte Absolute Manual 1.81 1.10 - 3.90 10 3/uL 05/21/2022 4:36 PM [facility] Monocytes Absolute Manual 1.81(H) 0.26 - 1.07 10 3/uL 05/21/2022 4:36 PM [facility] Eosinophils Absolute Manual 3.11(H) 0.00 - 0.47 10 3/uL 05/21/2022 4:36 PM [facility] Neutrophil % Manual 74(H) 35 - 70 % 05/21/2022 4:36 PM [facility] Lymphocyte % Manual 7(L) 20 - 43 % 05/21/2022 4:36 PM [facility] Monocytes % Manual 7 5 - 13 % 05/21/2022 4:36 PM [facility] Eosinophils % Manual 12(H) 0 - 6 % 05/21/2022 4:36 PM [facility] Platelet Estimate Adequate Adequate 05/21/2022 4:36 PM [facility] RBC Morphology Normal 05/21/2022 4:36 PM [facility] Blood BLOOD SPECIMEN / Unknown Venipuncture / Unknown 05/21/2022 3:22 PM CDT 05/21/2022 3:35 PM CDT Lucy Alanis MD LAB - HEMATOLOGY ORD ERABLES [facility] [address] [place] [address], [facility] [phone] * (ABNORMAL) CBC W AUTO DIFFERENTIAL (05/21/2022 3:22 PM CDT) WBC 25.9(H) 3.5 - 10.5 10 3/uL 05/21/2022 3:42 PM [facility] RBC 5.52 4.30 - 5.70 10 6/uL 05/21/2022 3:42 PM [facility] Hemoglobin 17.0 12.0 - 17.6 g/dL 05/21/2022 3:42 PM [facility] Hematocrit 49.7 35.2 - 51.7 % 05/21/2022 3:42 PM [facility] MCV 90.0 80.7 - 98.3 fL 05/21/2022 3:42 PM [facility] MCH 30.8 26.7 - 34.0 pg 05/21/2022 3:42 PM [facility] MCHC 34.2 30.8 - 35.9 g/dL 05/21/2022 3:42 PM [facility] Platelet Count 263 150 - 400 10 3/uL 05/21/2022 3:42 PM [facility] RDW-SD 42.7 36.0 - 50.0 fL 05/21/2022 3:42 PM [facility] RDW-CV 12.9 11.2 - 14.8 % 05/21/2022 3:42 PM [facility] MPV 9.0(L) 9.4 - 12.9 fL 05/21/2022 3:42 PM [facility] nRBC Absolute 0.00 0 10 3/uL 05/21/2022 3:42 PM [facility] nRBC Auto 0.0 0 /100 WBC 05/21/2022 3:42 PM [facility] Blood BLOOD SPECIMEN / Unknown Venipuncture / Unknown 05/21/2022 3:22 PM CDT 05/21/2022 3:35 PM CDT Lucy Alanis MD LAB - HEMATOLOGY ORD ERABLES [facility] [address] [place] [address], [facility] [phone] * (ABNORMAL) COMPREHENSIVE METABOLIC PANEL (05/21/2022 3:22 PM CDT) BUN 16 7 - 26 mg/dL 05/21/2022 4:00 PM [facility] Creatinine 0.51(L) 0.71 - 1.16 mg/dL 05/21/2022 4:00 PM [facility] Sodium 132(L) 136 - 145 mmol/L 05/21/2022 4:00 PM [facility] Potassium 4.4 3.5 - 4.5 mmol/L 05/21/2022 4:00 PM [facility] Chloride 98 98 - 107 mmol/L 05/21/2022 4:00 PM [facility] CO2 25 22 - 29 mmol/L 05/21/2022 4:00 PM [facility] Glucose 103 70 - 115 mg/dL 05/21/2022 4:00 PM [facility] Calcium 9.0 8.4 - 10.2 mg/dL 05/21/2022 4:00 PM [facility] Protein Total 5.9(L) 6.0 - 8.3 g/dL 05/21/2022 4:00 PM [facility] Albumin 3.6 3.4 - 5.0 g/dL 05/21/2022 4:00 PM [facility] Bilirubin Total 0.6 0.2 - 1.2 mg/dL 05/21/2022 4:00 PM [facility] Alkaline Phosphatase 59 40 - 150 U/L 05/21/2022 4:00 PM [facility] ALT 73(H) 5 - 55 U/L 05/21/2022 4:00 PM [facility] AST 15 5 - 34 U/L 05/21/2022 4:00 PM [facility] Anion Gap 13 8 - 18 05/21/2022 4:00 PM T [facility] BUN/Creatinine Ratio 31(H) 7 - 23 05/21/2022 4:00 PM T [facility] Osmolality Calculated 275 270 - 300 mOsm/kg 05/21/2022 4:00 PM [facility] Albumin/Globulin Ratio 1.6 1.1 - 2.3 05/21/2022 4:00 PM [facility] eGFR by CKD-EPI >90 >=90 mL/min/1.7 3 m2 05/21/2022 4:00 PM [facility] Blood BLOOD SPECIMEN / Unknown Venipuncture / Unknown 05/21/2022 3:22 PM CDT 05/21/2022 3:35 PM CDT Lucy Alanis MD LAB - CHEMISTRY [facility] Organization Address City/State/ZIP Co de Phone Number [facility] [address] [place] [address], [facility] [phone] Care Teams Ticket Agent Relationship Specialty Start Date End Date Hermilo Valiente DO [address] [place] [address] PCP - General Internal Medicine 05/21/22
--- NOTE | 2024-12-27 20:35 | ED.EAR ---
HPI - Ear Problem General Chief complaint: Ear Stated complaint: rubber tip in ear Time Seen by Provider: 12/27/24 20:21 History of Present Illness HPI Narrative: 49-year-old male presents with suspected foreign body in his left ear. Patient was using a inner ear camera that he bought online and felt like he might have left the tip of the applicator in his left your by accident. Tried to wash it out in the sink with water injections into his left ear. Unsure if he dislodged. No symptoms of hearing loss, no visual deficits, no nystagmus or ocular complaints. He was otherwise in his normal state of health. Related Data Home Medications ?Medication ?Instructions ?Recorded ?Confirmed ?Last Taken ?Type fexofenadine 180 mg tablet 180 mg PO DAILY 02/18/23 09/20/24 Unknown History (Rocio Allergy) ropinirole 0.5 mg tablet 0.5 mg PO QHS 08/26/23 09/20/24 Unknown History duloxetine 30 mg capsule,delayed 30 mg PO DAILY 03/10/24 09/20/24 Unknown History release (Cymbalta) Allergies Allergy/AdvReac Type Severity Reaction Status Date / Time gluten Allergy Severe Trouble Verified 09/20/24 09:20 swallowing [place] Inhibitors Allergy Mild Anaphylaxis Verified 09/20/24 09:20 ibuprofen Allergy Mild Anaphylaxis Verified 09/20/24 09:20 Review of Systems Review of Systems: As reviewed above in HPI [facility] Past Medical History Medical History BMI 31.0-31.9,adult Left shoulder pain T-cell lymphoma On [facility] drug therapy BMI 29.0-29.9,adult Radial tunnel syndrome surgery 2016, Dr. Ballard BMI 27.0-27.9,adult Essential hypertension Gastroesophageal reflux disease Mixed hyperlipidemia Surgical History Surgical History History of surgical removal of ganglion cyst right wrist H/O elbow surgery [address] Ballard Family History Family History Father Heart disease Hypertension COPD (chronic obstructive pulmonary disease) Emphysema of lung Mother Hypertension Asthma Sibling Diabetes mellitus Other Family history of allergic disorder Family history of cardiovascular disease Family history of malignant neoplasm Malignant neoplasm of prostate Social History Social History Smoking packs per day: 0.5 Smoking cigarettes per day: 10.0 Years smoked: 24 Smoking pack-years: 12.00 Smoking status: Former smoker Tobacco type: cigarettes Second hand tobacco smoke exposure: No Smoking end date: 04/17/22 Alcohol intake: current Alcohol use details: Social, casual, hasn't drank in a year Substance use: never Substance use type: does not use Do You Feel Safe in your Home?: Yes Lack of Transportation: No Lack of Food: Never True Current Housing: I Have Housing Concerned About Future Housing: No Difficulty Paying Gas/Electric Bills: No Difficulty Paying for Meds: No Currently Unemployed: No Education: Trade/Vocational Certificate Difficulty w/ Childcare or Family Care: No Living arrangements: with family Occupation/Education: occupation Additional occupation/education comments: [employer] Gender identity (if verbalized by the patient): Male Exam Narrative: GENERAL: [Well-appearing, well-nourished, and in no acute distress.] HEAD: [Normocephalic, atraumatic.] EYES: [PERRLA and EOMI.] ENT: Nares clear, no rhinorrhea or epistaxis. Mucous membranes moist. Bilateral otoscopic examination reveals clear tympanic membranes, no signs of otitis, mucus, blood, no signs of perforation. No signs of retained foreign body in left ear, patient's head was rotated in multiple directions without any appreciable visualization of a foreign body during exam. NECK: Supple. CHEST: No respiratory distress EXTREMITIES: Normal range of motion. [No edema.] SKIN: Warm, dry, no rash. NEURO: [No focal deficits]. Alert and oriented [x3.] Course Vital Signs Vital signs: Vital Signs Temperature 36.7 C 12/27/24 19:48 Pulse Rate 91 12/27/24 19:48 Respiratory Rate 16 12/27/24 19:48 Blood Pressure 127/79 12/27/24 19:48 Pulse Oximetry 98 12/27/24 19:48 Oxygen Delivery Room Air 12/27/24 19:48 Temperature 36.7 C 12/27/24 19:48 Pulse Rate 91 12/27/24 19:48 Respiratory Rate 16 12/27/24 19:48 Blood Pressure 127/79 12/27/24 19:48 Pulse Oximetry 98 12/27/24 19:48 Oxygen Delivery Room Air 12/27/24 19:48 Medical Decision Making MDM Narrative Medical decision making narrative: 49-year-old male presenting for suspected foreign body in his left ear. Otoscopic examination reveals no signs of foreign body or injury to his ear canal. Clear tympanic membranes bilaterally, no signs of erythema or infection. No hearing loss, normal examination vital signs. Stable for discharge home. Given ENT referral if this is still a persistent concern. Medical Records Medical records reviewed: Yes I reviewed the external patient's medical records. Vital Signs Vital Signs: Vital Signs Temperature 36.7 C 12/27/24 19:48 Pulse Rate 91 12/27/24 19:48 Respiratory Rate 16 12/27/24 19:48 Blood Pressure 127/79 12/27/24 19:48 Pulse Oximetry 98 12/27/24 19:48 Oxygen Delivery Room Air 12/27/24 19:48 Temperature 36.7 C 12/27/24 19:48 Pulse Rate 91 12/27/24 19:48 Respiratory Rate 16 12/27/24 19:48 Blood Pressure 127/79 12/27/24 19:48 Pulse Oximetry 98 12/27/24 19:48 Oxygen Delivery Room Air 12/27/24 19:48 Discharge Plan Discharge Clinical Impression: Ear foreign body Patient Disposition: Home, Self-Care Condition: Stable Instructions: Antibiotic Form, Ear Foreign Body (ED) Additional Instructions: There appears to be nothing left over in your left ear, no signs of tympanic membrane perforation or injury. No hearing loss. If the object is too small or too deep to be visualized it would not be able to be removed here in the emergency department. We provided you an ear nose throat specialist that you can follow-up with if this is still persistent concern. Return with any new issues. Patient Language: Indonesian Prescriptions: No Action ropinirole 0.5 mg tablet 0.5 mg PO QHS duloxetine [Cymbalta] 30 mg capsule,delayed release(DR/EC) 30 mg PO DAILY atorvastatin 40 mg tablet 40 mg PO DAILY Qty: 90 1RF fexofenadine [Rocio Allergy] 180 mg tablet 180 mg PO DAILY rizatriptan 10 mg tablet,disintegrating See Rx Instructions .ROUTE .COMPLEX Qty: 9 1RF Dose Instruction: TAKE 1 TABLET BY MOUTH AT ONSET OF HEADACHE. MAY REPEAT IN 2 HOURS IF NO RELIEF. MAX 3 TABS/24 HRS Rx Instructions: TAKE 1 TABLET BY MOUTH AT ONSET OF HEADACHE. MAY REPEAT IN 2 HOURS IF NO RELIEF. MAX 3 TABS/24 HRS baclofen 10 mg tablet See Rx Instructions .ROUTE .COMPLEX Qty: 60 3RF Dose Instruction: TAKE 1 TABLET BY MOUTH TWICE A DAY NEEDED FOR MUSCLE SPASM Rx Instructions: TAKE 1 TABLET BY MOUTH TWICE A DAY NEEDED FOR MUSCLE SPASM Follow-up/Referrals: Kyler Lebron MD [Physician] - 1 Week (ear foreign body) Hermilo Valiente DO [Primary Care Provider] - Time of Disposition: 20:34
--- OUTSIDE RECORDS SUMMARY | 2024-12-27 20:52 | XMS_ITS | Clinical Summary ---
Author Organization [facility] Address [address] [place] [address] Care Team Providers Care Fermentologist Name Role Phone Hermilo Valiente DO Unavailable Jennifer Denise MD Unavailable [phone] Fina Morgan MD Unavailable [phone] Max Al NP Primary Care Provider [phone] Allergies Active Allergy Reactions Criticality Noted Date Comments Anjel Inhibitors Anaphylaxis High 02/20/2022 Ibuprofen Anaphylaxis High 02/20/2022 Medications atorvastatin (LIPITOR) 40 mg tablet Take 1 tablet (40 mg total) by mouth 2 Active fexofenadine-pseudo ephedrine (VASU-D 24) 180-240 mg per 24 hr tablet Take 1 tablet by mouth daily Active baclofen (LIORESAL) 10 mg tabletIndications: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 MAY REPEAT IN 2 HOURS IF NO RELIEF. 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 BMT Inpatient Care Coordination Overview Diagnosis Anaplastic large cell lymphoma with AUTOMOTIVE DESIGN LAYOUT DRAFTER involvement [address] Treatment Plan BEAM Clinical Trial Reason for Admission BEAM AUTO 01/22/23 Transplant/IEC Planning BMT/IEC Plan D0 01/22/23 HLA typing/IDMs Insurance Approvals/Issues Discharge Planning Anticipated Discharge Date 02/04 Patient Education Completed Discharge teaching completed by Sapna 02/03 Issue to be Resolved Before Discharge Discharge Disposition Requests Sent to Case Management and/or Medical Assistants Post-Discharge Follow-Up Living Situation/Distance from [address] (25 MIN) Caregiver Lab/Transfusion Frequency Lab/plt1 02/05, Phone: Fax: Venous Access & Care tunneled central venous catheter Local Oncologist Contact Phone: Fax: Post-Discharge Office Visit (H30) AC-- 02/10 lab/ROV/plt1 & line removal Miscellaneous Notes: Problem Noted Date Diagnosed Date Lumbar spondylosis 11/10/2023 Assessment & Plan (02/01/2024 6:03 PM CDT): Consider LMBB L4-5 if LESI does not improve back pain. Assessment & Plan (11/10/2023 7:09 PM CLOTH FINISHING RANGE OPERATOR): Does have some ongoing axial pain but overall much improved. Discussed LMBB/RFA - wants to hold off at this time. Lumbar disc disease with radiculopathy 3 Overview (11/10/2023): LESI L5-S1 09/28/23 - >70% relief MRI Ls 07/2023 Counting reference: The iliac crest is at the L4-L5 disc space and there are 5 lumbar type vertebra. The distal spinal cord is normal. The conus medullaris terminates at the level of T12-L1. Unremarkable soft tissues. Slight retrolisthesis at L5-S1. No compression fractures. No marrow replacing lesion. Disc space narrowing at L5-S1. No annular fissures. L1-2: Disc bulge. There is no facet arthropathy. There is no neuroforaminal stenosis. There is no spinal canal stenosis. L2-3: Disc bulge. There is no facet arthropathy. There is no neuroforaminal stenosis. There is no spinal canal stenosis. L3-4: Disc bulge. There is no facet arthropathy. There is no neuroforaminal stenosis. There is mild spinal canal stenosis. L4-5: Disc bulge. There is mild left greater than right facet arthropathy. There is mild left neuroforaminal stenosis. There is mild spinal canal stenosis. L5-S1: Disc bulge with superimposed left subarticular and foraminal protrusion compressing the descending left S1 nerve root. There is no facet arthropathy. There is mild neuroforaminal stenosis. There is no spinal canal stenosis. IMPRESSION: L5-S1 disc bulge and left-sided protrusion compressing the descending S1 nerve root Assessment & Plan (02/01/2024 6:04 PM CDT): Repeat LESI. Continue duloxetine. Assessment & Plan (11/10/2023 7:11 PM CLOTH FINISHING RANGE OPERATOR): Benefit from LESI and duloxetine. Will increase duloxetine to 60mg/day. If he finds SE are worse or not worth the benefit he will continue at 30mg/day. Repeat LESI prn Assessment & Plan (08/30/2023 2:13 PM CLOTH FINISHING RANGE OPERATOR): Though central pain is likely a component given oncologic hx of R midbrain affecting whole L side, he does have focal MRI findings of disc protrusion on left corresponding with symptoms. Will trial cymbalta 30 daily and schedule for LESI at L5-S1. 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 He has completed 6 cycles of BV-CHP and 6 cycles HD-MTX. Most recent PET/CT (11/26/2022) with complete metabolic response. Now following with Dr. Morgan for BEAM Auto SCT, s/p mobilization and harvest 01/12/23. - BEAM-auto SCT, day 0 on 01/22, tolerated transplant well. - monitor for side effects-has mucositis -diarrhea ; mild epigastric pain could be related to mucositis , abd exam with no peritoneal signs. -got fluids when he had a lot of diarrhea - now off - diarrhea - C diff neg 01/25 ; Loperamide and lomotil prn - OI ppx: valacyclovir and dapsone -pancytopenia sec to chemo -transfuse per BMT protocol- developed reaction to platelets 01/29 - got benadryl ; tolerated pltlet tfx since then with premed with HC and benadryl . - gcsf 01/29 - Lymphoma of extranodal and solid organ sites 11/2021 DVT (deep venous thrombosis) 08/27/2022 Assessment & Plan (01/27/2023 9:52 AM CDT): History of LLE DVT found on 07/06/22 lower extremity dopplers with involement of peroneal vein. On apixaban 5 mg BID at home , now held for thrombocytopenia. Assessment & Plan (08/27/2022 7:45 PM CLOTH FINISHING RANGE OPERATOR): Dx 06/2022 of LLE -cont eliquis Depression 08/27/2022 Assessment & Plan (01/15/2023 12:57 PM CDT): -continue home escitalopram 10 Assessment & Plan (08/27/2022 7:46 PM CLOTH FINISHING RANGE OPERATOR): Cont lexapro Tear of left glenoid labrum 08/02/2022 Edema of all four extremities 07/05/2022 Assessment & Plan (07/06/2022 10:10 AM CDT): Possibly due to multiple factors including ALBERTO/immobilization Improved with diuretics and improvement in kidney function Ordered US ALEJANDRO (showed superficial thrombosis) and BLLE due to residual edema (pending) Shoulder pain, left 07/03/2022 Assessment & Plan (07/06/2022 10:09 AM CDT): With weakness: due to intracranial involvement Lidocaine patch, no gabapentin for now concern for kidney function and oversedation US to r/o DVT MRI shoulder done that depicted SLAP tear Contacted orthopedic service: advised on PT/Sling and outpatient follow up Acute kidney injury 06/26/2022 Assessment & Plan (07/06/2022 10:10 AM CDT): Cr elevated from baseline 0.6-0.7, in setting of severely high methotrexate levels, suspect all drug-induced nephrotoxicity. Cr uptrending to 4.84 today (prior Cr 3.22 possibly spurious) - continue management of methotrexate toxicity as discussed elsewhere - hold off on diuretics for volume overload pending renal recovery - closely monitor renal function, UOP, and renally dose medications - Nephrology consulted given continued creatinine rise, appreciate recs, - Obtained UPCR (316.7) and renal US (normal kidneys) - Avoid nephrotoxic, lasix PRN -Improving Assessment & Plan (06/29/2022 11:25 AM CDT): Cr elevated from baseline 0.6-0.7, in setting of severely high methotrexate levels, suspect all drug-induced nephrotoxicity. Cr uptrending to 4.84 today (prior Cr 3.22 possibly spurious) - continue management of methotrexate toxicity as discussed elsewhere - hold off on diuretics for volume overload pending renal recovery - closely monitor renal function, UOP, and renally dose medications - Nephrology consulted given continued creatinine rise, appreciate recs, will obtain UPCR and renal US Assessment & Plan (06/28/2022 10:13 AM CDT): Cr elevated from baseline 0.6-0.7, in setting of severely high methotrexate levels, suspect all drug-induced nephrotoxicity. Cr appears to have peaked at 4.04 and now downtrending. - continue management of methotrexate toxicity as discussed elsewhere - hold off on diuretics for volume overload pending renal recovery - closely monitor renal function, UOP, and renally dose medications Assessment & Plan (06/27/2022 1:52 PM CDT): Cr elevated to 2.11 -> 3.37 from baseline 0.6-0.7, in setting of severely high methotrexate levels, suspect all drug-induced nephrotoxicity. - continue management of methotrexate toxicity as discussed elsewhere - closely monitor renal function, UOP, and renally dose medications Assessment & Plan (06/26/2022 11:43 AM CDT): Cr elevated to 2.11 from baseline 0.6-0.7, in setting of severely high methotrexate levels, suspect all drug-induced nephrotoxicity. - will send UA, urine lytes - continue management of methotrexate toxicity as discussed elsewhere - closely monitor renal function, UOP, and renally dose medications Moderate malnutrition 06/23/2022 Assessment & Plan (07/06/2022 10:09 AM CDT): RD consult Chemotherapy induced diarrhea 06/20/2022 Assessment & Plan (07/06/2022 10:10 AM CDT): C. Diff negative, stool culture NGTD, prn Imodium, MARK, IVF. KUB with ileus, caution with opioids, antibiotics as above Resolved Assessment & Plan (06/28/2022 10:13 AM CDT): C. Diff negative, stool culture NGTD, prn Imodium, MARK, IVF. KUB with ileus, caution with opioids, antibiotics as above Assessment & Plan (06/27/2022 1:52 PM CDT): C. Diff negative, stool culture NGTD, prn Imodium, MARK, IVF. KUB with ileus, caution with opioids, antibiotics as above Assessment & Plan (06/26/2022 11:41 AM CDT): C. Diff negative, stool culture NGTD, prn Imodium, MARK, IVF. KUB with ileus, caution with opioids, antibiotics as above Assessment & Plan (06/21/2022 1:00 PM CDT): C. Diff negative, stool culture NGTD, prn Imodium, MARK, IVF. KUB with ileus, caution with opioids, antibiotics as above Assessment & Plan (06/20/2022 10:53 AM CDT): C. Diff negative, stool culture pending, prn Imodium, MARK, IVF Mucositis due to chemotherapy 06/20/2022 Assessment & Plan (06/30/2022 9:41 AM CDT): Continue pain regimen (systemic and topical), IVF, diet as tolerated. Monitor Assessment & Plan (06/28/2022 10:13 AM CDT): Continue pain regimen (systemic and topical), IVF, diet as tolerated. Monitor Assessment & Plan (06/27/2022 1:52 PM CDT): Continue pain regimen (systemic and topical), IVF, diet as tolerated. Monitor Assessment & Plan (06/21/2022 1:00 PM CDT): Continue pain regimen (systemic and topical), IVF, diet as tolerated. Monitor Assessment & Plan (06/20/2022 10:54 AM CDT): Continue pain regimen, IVF, diet as tolerated. Monitor Neutropenic fever 06/19/2022 Assessment & Plan (02/01/2023 1:01 PM CDT): -spiked fever 01/28- bld cs sent -ngtd , ua and cxr with no s/o infection , started cefepime -no more fevers Lactate wnl No localizing symptoms Assessment & Plan (06/30/2022 9:41 AM CDT): - ANC zero. Tmax 100.2 at home, relative increase. Vitals stable. Most likely source is GI. Less likely is oral ulcer. Lung exam and CXR without evidence of pneumonia. No urinary symptoms to suggest UTI. No rash to suggest SSTI. RVP negative. C diff negative, stool culture NGTD, blood cultures NGTD, UA wnl, HSV PCR negative - s/p cefepime (06/19 - 06/20) -> meropenem (06/21 -06/22), vancomycin (06/19 - 06/22) - resolved, still afebrile without symptoms off antibiotics Assessment & Plan (06/29/2022 11:25 AM CDT): - ANC zero. Tmax 100.2 at home, relative increase. Vitals stable. Most likely source is GI. Less likely is oral ulcer. Lung exam and CXR without evidence of pneumonia. No urinary symptoms to suggest UTI. No rash to suggest SSTI. RVP negative. C diff negative, stool culture NGTD, blood cultures NGTD, UA wnl, HSV PCR negative - s/p cefepime (06/19 - 06/20) -> meropenem (06/21 -06/22), vancomycin (06/19 - 06/22) - resolved, still afebrile without symptoms off antibiotics Assessment & Plan (06/28/2022 10:13 AM CDT): - ANC zero. Tmax 100.2 at home, relative increase. Vitals stable. Most likely source is GI. Less likely is oral ulcer. Lung exam and CXR without evidence of pneumonia. No urinary symptoms to suggest UTI. No rash to suggest SSTI. RVP negative. C diff negative, stool culture NGTD, blood cultures NGTD, UA wnl, HSV PCR negative - s/p cefepime (06/19 - 06/20) -> meropenem (06/21 -06/22), vancomycin (06/19 - 06/22) - resolved, still afebrile without symptoms off antibiotics Assessment & Plan (06/27/2022 1:52 PM CDT): - ANC zero. Tmax 100.2 at home, relative increase. Vitals stable. Most likely source is GI. Less likely is oral ulcer. Lung exam and CXR without evidence of pneumonia. No urinary symptoms to suggest UTI. No rash to suggest SSTI. RVP negative. C diff negative, stool culture NGTD, blood cultures NGTD, UA wnl, HSV PCR negative - s/p cefepime (06/19 - 06/20) -> meropenem (06/21 -06/22), vancomycin (06/19 - 06/22) - resolved, still afebrile without symptoms off antibiotics Assessment & Plan (06/26/2022 11:39 AM CDT): - ANC zero. Tmax 100.2 at home, relative increase. Vitals stable. Most likely source is GI. Less likely is oral ulcer. Lung exam and CXR without evidence of pneumonia. No urinary symptoms to suggest UTI. No rash to suggest SSTI. RVP negative. C diff negative, stool culture NGTD, blood cultures NGTD, UA wnl, HSV PCR negative - s/p cefepime (06/19 - 06/20) -> meropenem (06/21 -06/22), vancomycin (06/19 - 06/22) - resolved, still afebrile without symptoms off antibiotics Assessment & Plan (06/21/2022 12:59 PM CDT): ANC zero. Tmax 100.2 at home, relative increase. Vitals stable. Most likely source is GI. Less likely is oral ulcer. Lung exam and CXR without evidence of pneumonia. No urinary symptoms to suggest UTI. No rash to suggest SSTI. RVP negative. C diff negative, stool culture NGTD, blood cultures NGTD, urine culture pending, HSV PCR negative - cefepime 2000 mg IV q 8 hr ; vancomycin 1500 mg q 12 hours with vanc trough 8.6, increased Vanc dose, with persistent fever and abdominal symptoms/ileus - change Cefe to Dima Assessment & Plan (06/20/2022 10:52 AM CDT): ANC zero. Tmax 100.2 at home, relative increase. Vitals stable. Most likely source is GI. Less likely is oral ulcer. Lung exam and CXR without evidence of pneumonia. No urinary symptoms to suggest UTI. No rash to suggest SSTI. RVP negative. - cefepime 2000 mg IV q 8 hr ; vancomycin 1500 mg q 12 hours with vanc trough ordered for 9/4 AM - C diff negative, stool culture pending, blood cultures NGTD, urine culture pending, HSV PCR negative Pancytopenia 06/19/2022 Assessment & Plan (06/30/2022 9:41 AM CDT): - Present on admission, likely due to chemotherapy. Neulasta given on 06/15/2022. Now with count recovery and resolved. - Consented for transfusion if needed - Resumed DVT ppx given no longer thrombocytopenic. Assessment & Plan (06/29/2022 11:25 AM CDT): - Present on admission, likely due to chemotherapy. Neulasta given on 06/15/2022. Now with count recovery and resolved. - Consented for transfusion if needed - Resumed DVT ppx given no longer thrombocytopenic. Assessment & Plan (06/28/2022 10:13 AM CDT): - Present on admission, likely due to chemotherapy. Neulasta given on 06/15/2022. Now with count recovery and resolved. - Consented for transfusion if needed - Resumed DVT ppx given no longer thrombocytopenic. Assessment & Plan (06/27/2022 1:52 PM CDT): - Present on admission, likely due to chemotherapy. Neulasta given on 06/15/2022. Now with count recovery and resolved. - Consented for transfusion if needed. Holding DVT PPx. Assessment & Plan (06/26/2022 11:40 AM CDT): - Present on admission, likely due to chemotherapy. Neulasta given on 06/15/2022. Now with count recovery and resolved. - Consented for transfusion if needed. Holding DVT PPx. Assessment & Plan (06/21/2022 1:00 PM CDT): Likely due to chemotherapy. Neulasta given on 06/15/2022. Trending counts. Consented for transfusion if needed. Holding DVT PPx. Assessment & Plan (06/20/2022 10:52 AM CDT): Likely due to chemotherapy. Neulasta given on 06/15/2022. Trending counts. Consented for transfusion if needed. Holding DVT PPx. Hypertension, essential 06/19/2022 Assessment & Plan (02/02/2023 5:30 PM CDT): Hx HTN on home diltiazem XL 300 mg daily, candesartan 16 mg daily Holding home diltiazem and candesartan with normotension Assessment & Plan (08/27/2022 7:46 PM CLOTH FINISHING RANGE OPERATOR): Cont losartan (for candesartan per formulary) and dilt Assessment & Plan (06/30/2022 9:42 AM CDT): Holding home candesartan-HCTZ initially due to neutropenic fever, and dose- reduced home diltiazem. - Now holding all antihypertensives given BP currently well controlled and mild bradycardia. Assessment & Plan (06/29/2022 11:25 AM CDT): Holding home candesartan-HCTZ initially due to neutropenic fever, and dose- reduced home diltiazem. - Now holding all antihypertensives given BP currently well controlled and mild bradycardia. Assessment & Plan (06/28/2022 10:13 AM CDT): Holding home candesartan-HCTZ initially due to neutropenic fever, and dose- reduced home diltiazem. - Now holding all antihypertensives given BP currently well controlled and mild bradycardia. Assessment & Plan (06/27/2022 1:52 PM CDT): Holding home candesartan-HCTZ initially due to neutropenic fever, and dose- reduced home diltiazem. - Now holding all antihypertensives given BP currently well controlled and mild bradycardia. Assessment & Plan (06/26/2022 11:41 AM CDT): Holding home candesartan-HCTZ initially due to neutropenic fever, and dose- reduced home diltiazem. - Now holding all antihypertensives given BP currently well controlled and mild bradycardia. Assessment & Plan (06/20/2022 11:01 AM CDT): With neutropenic fever holding home candesartan and HCTZ. Dose reduce diltiazem ER 300 to diltiazem 30 mg q 6. Assessment & Plan (06/19/2022 7:47 PM CDT): With neutropenic fever holding home candesartan and HCTZ. Dose reduce diltiazem ER 300 to diltiazem 45 q 6. Encounter for antineoplastic chemotherapy 2021 Assessment & Plan (08/27/2022 7:44 PM CLOTH FINISHING RANGE OPERATOR): Admitted for C4 HD-MTX dose reduced given h/o prolonged clearance. -support with anti-emetics, steroids, IVF for urine alkalinization and leucovorin -Urine dipstick for ph, ok to initiate chemotherapy when urine pH >/=7, check urine pH q shift -Avoid NSAIDs, PCNs, ASA, Probenecid, Bactrim, and PPIs while recieving MTX -MTX level due 24 hours after completion of HD MTX and then q 24 hours until <0.1 Anaplastic ALK-negative larg e cell lymphoma of solid organ excluding spleen 06/08/2022 Assessment & Plan (08/27/2022 7:43 PM CLOTH FINISHING RANGE OPERATOR): Dx 05/2022 with adrenal biopsy c/w ALK negative anaplastic large cell lymphoma. bMRI with right cerebral peduncle lesion. 06/05 LP: no significant B cell population identified. 06/05 BMBX: negative. C3 HD-MTX 07/31 and C3 BV-CHP 08/13 (previously CHOEP x1c, 05/2022). Most recent brain MRI 07/30 with decreased side of right cerebral peduncle mass, c/w treatment response. 08/05 PET-CT c/w complete metabolic response. Previous cycles of HD-MTX associated with prolonged clearance. Follows with [facility] -proceed with C4 HD-MTX -cont acyclovir and dapsone ppx Assessment & Plan (07/06/2022 10:08 AM CDT): Recent diagnosis. Patient of Dr. Denise. S/p HD-MTX on 06/05 and CHOEP on 06/11. Initially admitted for monitoring of neutropenic fever, now remaining in hospital for cycle 2 HD-MTX, started 06/24. - s/p cycle 2 high-dose MTX 06/24/22, and originally planned for CHOEP outpatient - Continue levetiracetam for prophylaxis, will hold acyclovir ppx for now in setting of MTX-induced ALBERTO - Continue leucovorin 100 mg/m2 q3h for MTX toxicity and s/p glucarpidase x 1 dose 06/26 - Continue ursodiol for possible GI re-absorption per oncology recs - Continue sodium bicarb infusion for urine alkalinization, adjust base on volume status and urine pH; Acetazolamide added due to high bic - Holding Bactrim ppx while on MTX - CTM renal and hepatic function closely given supratherapeutic MTX levels - CTM MTX levels q24 hours until level <= 0.1 - Oncology team requested MRI brain - Baclofen 5 mg TID for dexamethasone-induced hiccups - Med-onc following, appreciate recs - Oncology team requested MRI brain and spine for follow up: MRI spine: Significant interval improvement in FLAIR hyperintensity associated with lesion in the right cerebral peduncle. Evaluation is somewhat limited in the absence of intravenous contrast. Unremarkable MRI of the cervical spine MRI brain: Significant interval improvement in FLAIR hyperintensity associated with lesion in the right cerebral peduncle. Evaluation is somewhat limited in the absence of intravenous contrast. Unremarkable MRI of the cervical spine. Assessment & Plan (06/29/2022 11:23 AM CDT): Recent diagnosis. Patient of Dr. Denise. S/p HD-MTX on 06/05 and CHOEP on 06/11. Initially admitted for monitoring of neutropenic fever, now remaining in hospital for cycle 2 HD-MTX, started 06/24. - s/p cycle 2 high-dose MTX 06/24/22, and originally planned for CHOEP outpatient - Continue levetiracetam for prophylaxis, will hold acyclovir ppx for now in setting of MTX-induced ALBERTO - Continue leucovorin 100 mg/m2 q3h for MTX toxicity and s/p glucarpidase x 1 dose 06/26 - Continue ursodiol for possible GI re-absorption per oncology recs - Continue sodium bicarb infusion for urine alkalinization, adjust base on volume status and urine pH - Holding Bactrim ppx while on MTX - CTM renal and hepatic function closely given supratherapeutic MTX levels - CTM MTX levels q24 hours until level <= 0.1 - Baclofen 5 mg TID for dexamethasone-induced hiccups - Med-onc following, appreciate recs Assessment & Plan (06/28/2022 10:11 AM CDT): Recent diagnosis. Patient of Dr. Denise. S/p HD-MTX on 06/05 and CHOEP on 06/11. Initially admitted for monitoring of neutropenic fever, now remaining in hospital for cycle 2 HD-MTX, started 06/24. - s/p cycle 2 high-dose MTX 06/24/22, followed by C2 CHOEP following week as outpatient - Continue levetiracetam for prophylaxis, will hold acyclovir ppx for now in setting of MTX-induced ALBERTO - Continue leucovorin 100 mg/m2 q3h for MTX toxicity and s/p glucarpidase x 1 dose 06/26 - Continue ursodiol per oncology recs - Decrease sodium bicarb to 100 mEq @ 100 cc/hr given urine pH still appropriately alkalinized and worsening LE swelling - Holding Bactrim ppx while on MTX - CTM renal and hepatic function closely given supratherapeutic MTX levels - CTM MTX levels q24 hours until level <= 0.1 - Baclofen 5 mg TID for dexamethasone-induced hiccups - Med-onc following, appreciate recs Assessment & Plan (06/27/2022 1:51 PM CDT): Recent diagnosis. Patient of Dr. Denise. S/p HD-MTX on 06/05 and CHOEP on 06/11. Initially admitted for monitoring of neutropenic fever, now remaining in hospital for cycle 2 HD-MTX, started 06/24. - s/p cycle 2 high-dose MTX 06/24/22, followed by C2 CHOEP following week as outpatient - Continue levetiracetam for prophylaxis, will hold acyclovir ppx for now in setting of MTX-induced ALBERTO - Continue leucovorin 100 mg/m2 q3h for MTX toxicity and s/p glucarpidase x 1 dose 06/26 - Continue ursodiol per oncology recs - Decrease sodium bicarb to 150 mEq @ 100 cc/hr - Holding Bactrim ppx while on MTX - CTM renal and hepatic function closely given supratherapeutic MTX levels - CTM MTX levels q24 hours until level <= 0.1 - Baclofen 5 mg TID for dexamethasone-induced hiccups - Med-onc following, appreciate recs Assessment & Plan (06/26/2022 11:39 AM CDT): Recent diagnosis. Patient of Dr. Denise. S/p HD-MTX on 06/05 and CHOEP on 06/11. Initially admitted for monitoring of neutropenic fever, now remaining in hospital for cycle 2 HD-MTX, started 06/24. - s/p cycle 2 high-dose MTX 06/24/22, followed by C2 CHOEP following week as outpatient - Continue levetiracetam for prophylaxis, will hold acyclovir ppx for now in setting of MTX-induced ALBERTO - Start leucovorin 100 mg/m2 q3h for MTX toxicity and glucarpidase x 1 dose (will need to space leucovorin 2 hours before and 2 hours after glucarpidase dose) - increase sodium bicarb to 150 mEq @ 200 cc/hr - Holding Bactrim ppx while on MTX - CTM renal and hepatic function closely given supratherapeutic MTX levels - CTM MTX levels q24 hours until level <= 0.1 - Baclofen 5 mg TID for dexamethasone-induced hiccups - Med-onc following, appreciate recs Assessment & Plan (06/21/2022 1:00 PM CDT): Recent diagnosis. Patient of Dr. Denise. S/p HD-MTX on 06/05 and CHOEP on 06/11. Continue acyclovir, trimethoprim-sulfamethoxazole, and levetiracetam prophylaxis Assessment & Plan (06/19/2022 7:46 PM CDT): Recent diagnosis. Patient of Dr. Denise. S/p HD-MTX on 06/05 and CHOEP on 06/11. 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); History of removal of Port-a-Cath 11/07/2024 10:50 AM CLOTH FINISHING RANGE OPERATOR Lab [facility] Advanced [facility] ([facility]) [address] [place] [phone] 11/07/2024 10:49 AM [facility] [place] - 11/07/2024 11:59 PM CLOTH FINISHING RANGE OPERATOR Hospital Encounter [facility] [place] [address] 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); History of removal of Port-a-Cath Discharge Disposition: Discharge to home or self care 11/02/2024 Telephone [facility] [address] [place] [address] Destiny Brewer RN 10/27/2024 Documentation [facility] [address] [place] [phone] Miroslava Park CMA 10/27/2024 Documentation [facility] [address] [place] [phone] Miroslava Park CMA 10/27/2024 Documentation [facility] [address] [place] [address] [address] [place] [address] Miroslava Park, [facility] 10/27/2024 Documentation [facility] [address] [place] [address] [address] [place] [phone] Miroslava Park, [facility] 10/27/2024 Orders Only [facility] [address] [place] [address] [address] [place] [phone] Rosalina James RN 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) (Primary Dx); History of removal of Port-a-Cath 10/19/2024 1:45 PM CLOTH FINISHING RANGE OPERATOR Office Visit [facility] [address] [place] [phone] Jacki Lee NP 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) (Primary Dx) 10/19/2024 12:30 PM CLOTH FINISHING RANGE OPERATOR Lab [facility] [address] [place] [phone] 10/19/2024 11:15 AM CLOTH FINISHING RANGE OPERATOR Clinical Support [facility] - Lab Collection [address] [place] [address] [address] [place] [address] 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) 10/19/2024 6:13 AM CLOTH FINISHING RANGE OPERATOR - 10/19/2024 11:59 PM CLOTH FINISHING RANGE OPERATOR Hospital Encounter [facility] - PET [facility] [address] [place] [address] Discharge Disposition: Discharge to home or self care 10/19/2024 6:12 AM CLOTH FINISHING RANGE OPERATOR - 10/19/2024 11:59 PM CLOTH FINISHING RANGE OPERATOR Hospital Encounter [facility] - PET [facility] [place] [facility] [address] [place] [address] 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) Discharge Disposition: Discharge to home or self care 10/19/2024 6:12 AM CLOTH FINISHING RANGE OPERATOR - 10/19/2024 11:59 PM CLOTH FINISHING RANGE OPERATOR Hospital Encounter [facility] - MRI [address] [facility] [place] [address] [place] [address] 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) Discharge Disposition: Discharge to home or self care 10/19/2024 Documentation [facility] Floor [address] [place] [address] Griselda Robles, RMA Appointment 10/19/2024 Telephone [facility] [address] [facility] Floor [address] [place] [address] Jacki Lee NP from Last 3 Months Immunizations Immunization Administration Dates Next Due DTaP 02/03/2024,11/04/2023 Hep B, Dialysis 05/11/2024,02/03/2024,11/04/2023 Hib (PRP-T) 05/11/2024,02/03/2024,11/04/2023 IPV 08/10/2024,02/03/2024,11/04/2023 Pneumococcal Conjugate Pcv20 08/10/2024,05/11/20,02/03/2024,11/04/2023 Tdap 05/11/2024,10/18/2020 ZOSTER Recombinant 02/03/2024,11/04/2023 Surgical History Surgery Date Site/Laterality Comments GANGLION CYST EXCISION Right LUMBAR PUNCTURE WO INJECTION, DIAGNOSTIC 06/05/2022 N/A CENTRAL LINE PLACEMENT > 5 YEARS 07/01/2022 N/A PORT PLACEMENT CHEST >5 YEARS 07/16/2022 N/A TUNNELED LINE PLACEMENT > 5 YEARS 01/08/2023 N/A REMOVE TUNNELED LINE 02/10/2023 Left LUMBAR PUNCTURE WO INJECTION, DIAGNOSTIC 05/07/2022 N/A PORT REMOVAL 11/07/2024 N/A Medical History Medical History Date Comments Brain Tumor Hypertension Anaplastic large cell lympho ma, ALK-negative, unspecified site (HCC) 06/08/2022 DVT (deep vein thrombosis) in Arthritis Family History Medical History Relation Name Comments Heart attack Father Heart disease Father Hypertension Father Kidney disease Father Hypertension Mother Relation Name Status Comments Father Mother Social History Tobacco Use Types Packs/Day Years Used Date Smoking Tobacco: Former Cigarettes 1 25.5 1 997 - 04/24/2022 Smokeless Tobacco: Never Tobacco Cessation:Counseling Given: Not Answered Social Connection and Isolat ion Panel [NHANES] Answer Date Recorded In a typical week, how many times do you talk on the phone with family, friends, or neighbors? More than three times a week 01/18/2023 How often do you get togethe r with friends or relatives? More than three times a week 01/18/2023 How often do you attend chur ch or mandaeism services? Never 01/18/2023 Do you belong to any clubs o r organizations such as methodist groups, unions, fraternal or athletic groups, or school groups? No 01/18/2023 How often do you attend meet ings of the clubs or organizations you belong to? Never 01/18/2023 Are you , , di vorced, , never , or living with a partner? 01/18/2023 AUDIT-C Answer Date Recorded Q1: How often do you have a drink containing alcohol? Never 02/01/2024 Q2: How many drinks containi ng alcohol do you have on a typical day when you are drinking? Patient does not drink Q3: How often do you have si x or more drinks on one occasion? Never 02/01/2024 Overall Financial Resource Strain (CARDIA) Answe r Date Recorded How hard is it for you to pa y for the very basics like food, housing, medical care, and heating? Not hard at all 01/18/2023 PHQ-2 Answer Date Recorded PHQ-2 Total Score 0 01/18/2023 Hunger Vital Sign Answer Date Recorded Within the past 12 months, y ou worried that your food would run out before you got the money to buy more. Never true 01/19/20 23 Within the past 12 months, t he food you bought just didn't last and you didn't have money to get more. Never true 01/18/2023 PRAPARE - Transportation Answer Date Re corded In the past 12 months, has l ack of transportation kept you from medical appointments or from getting medications? No 12/2022 In the past 12 months, has l ack of transportation kept you from meetings, work, or from getting things needed for daily living? No 01/18/2023 Housing Stability Vital Sign Answer Mark e Recorded In the last 12 months, was t here a time when you were not able to pay the mortgage or rent on time? No 01/18/2023 In the last 12 months, how many places have you lived? 1 01/18/2023 In the last 12 months, was t here a time when you did not have a steady place to sleep or slept in a nursing home (including now)? No 01/18/2023 Personal Safety Answer Date Recorded Have you ever been in or are you currently in a harmful physical or emotional relationship or is someone making you feel afraid or unsafe? Denies 11/07/2024 Sex and Gender Information Value Date Recorded Sex Assigned at Not on file Legal Sex Male 6:00 PM CLOTH FINISHING RANGE OPERATOR Gender Identity Male 05/26/2022 12:46 PM CDT Sexual Orientation Not on file Obstetrics History Last Filed Vital Signs Vital Sign Reading Time Taken Comments Blood Pressure 131/98 11/07/2024 2:05 PM CLOTH FINISHING RANGE OPERATOR Pulse 75 11/07/2024 2:05 PM CLOTH FINISHING RANGE OPERATOR Temperature 36 C (96.8 F) 11/07/2024 11:00 AM CLOTH FINISHING RANGE OPERATOR Respiratory Rate 10 11/07/2024 11:00 AM CLOTH FINISHING RANGE OPERATOR Oxygen Saturation 94% 11/07/2024 2:05 PM CLOTH FINISHING RANGE OPERATOR Inhaled Oxygen Concentration - - Weight 109.3 kg (241 lb) 11/07/2024 11:00 AM CLOTH FINISHING RANGE OPERATOR Height 188 cm (6' 2 ) 05/11/2024 6:53 AM CDT Body Mass Index 30.94 05/11/2024 6:53 AM CDT Plan of Treatment Health Maintenance Due Date Last Done Comments Colon Cancer Screening-Colonoscopy 1976 Regular Well Visit/Exam 18-64 02/07/1994 Covid-19 Vaccine (3 - Modern a risk series) 07/10/2021 06/12/2021, 05/15/2021 Depression Screening 11/24/2023 11/24/2022 Influenza Vaccine (#1) 2024 DTaP/Tdap/Td Vaccine (5 - Td or Tdap) 05/11/2034 05/11/2024, 02/03/2024, 11/04/2023, Additional history exists Hepatitis C Screening Completed 06/05/2022 Zoster Vaccine Completed 02/03/2024, 11/04/2023 Hepatitis B Screening Completed 05/11/2024 , 02/03/2024, 11/04/2023, Additional history exists Pneumococcal vaccine <65 Completed 024, 05/11/2024, 02/03/2024, Additional history exists Goals Goal Patient Goal Type Associated Problems Recent Progress Patient-Stated? Author CCM Chronic Pain Care Plan Chronic Care Management No change(02/17 10:45 AM CDT) No Ailyn Llanes RN Note: Problem: Chronic Pain Goals: 1. Minimize further functional decline 2. Maximize quality of life 3. Control pain Strategies: - Activity/exercise program recommendation - Conservative stepwise pain medicine strategy with multi-disciplinary approach - Recommend healthy lifestyle strategies and compensatory methods as needed Medical Devices Implanted Type Area Disability Benefits Specialist Device Identifier Shelf Expiration Date Model / Serial / Lot [employer] Xcela Power Port 8fr [id number] - [id number] Implanted:Qty: 1 on 07/16/2022 at [facility] [employer] 04/05/2027 [id number] / / [id number] Procedures Procedure Name Priority Date/Time Associated Diagnosis Comments PORT REMOVAL Schedule NABILA, Read NABILA (Appt Today, Awaiting Results) 11/07/2024 2:01 PM CLOTH FINISHING RANGE OPERATOR 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) History of removal of Port-a-Cath DIFFERENTIAL AUTO Routine 11/07/2024 10: 27 AM CLOTH FINISHING RANGE OPERATOR 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) History of removal of Port-a-Cath CBC WITH AUTO DIFFERENTIAL Routine 11/07/2024 10:27 AM CLOTH FINISHING RANGE OPERATOR 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) History of removal of Port-a-Cath PROTIME-INR Routine 11/07/2024 10:27 AM CLOTH FINISHING RANGE OPERATOR 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) History of removal of Port-a-Cath EGFR Routine 10/19/2024 10:56 AM CLOTH FINISHING RANGE OPERATOR 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) DIFFERENTIAL AUTO Routine 10/19/2024 10: 56 AM CLOTH FINISHING RANGE OPERATOR 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) LACTATE DEHYDROGENASE Routine 10/19/2024 10:56 AM CLOTH FINISHING RANGE OPERATOR 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) COMPREHENSIVE METABOLIC PANEL Routine 10/19/2024 10:56 AM CLOTH FINISHING RANGE OPERATOR 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) CBC WITH AUTO DIFFERENTIAL Routine 10/19/2024 10:56 AM CLOTH FINISHING RANGE OPERATOR 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) PET/CT FDG SKULL TO THIGH Schedule NABILA, Read NABILA (Appt Today, Awaiting Results) 10/19/2024 10:06 AM CLOTH FINISHING RANGE OPERATOR 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) MRI BRAIN W WO CONTRAST Schedule NABILA, Read NABILA (Appt Today, Awaiting Results) 10/19/2024 7:22 AM CLOTH FINISHING RANGE OPERATOR 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 Electronically signed by: Farzana Ignacio PA-C Narrative 11/07/2024 2:18 PM CLOTH FINISHING RANGE OPERATOR EXAMINATION: PORT REMOVAL HISTORY: This is a 49-year-old male with a history of lymphoma with a right chest port placed on 06/2022. CT/PET done on 10/19/24 likely represents fibrin sheath at the tip of the catheter, Patient reports that his treatment has been completed and no longer needs the port. PROVIDER PRESENCE: Farzana Ignacio PA-C, was present from the beginning to the end of the procedure. SEDATION: The patient did not require conscious sedation. TECHNIQUE: The risks, benefits and alternatives were discussed and informed consent was obtained. Prior to beginning the procedure, Arvilla Protocol was used to confirm the patient's identity and planned procedure. Fluoroscopy time has been recorded in the electronic medical record. Maximum sterile barriers including cap, mask, hand hygiene, sterile gloves, sterile gown, large sterile drape and 2% chlorhexidine for cutaneous antisepsis were used. A fluoroscopic image was recorded prior to the beginning of the procedure. The skin adjacent to the right chest wall port was sterilely prepped, draped and infiltrated with 1% lidocaine. After making a short transverse incision, the port reservoir was freed using a combination of sharp and blunt dissection. The catheter was then removed. A fluoroscopic image was recorded following removal of the port. The deep tissues were approximated using 4-0 Monocryl and 2-0 Vicryl and the incision closed using skin glue. ESTIMATED BLOOD LOSS: Minimal. CONDITION: Stable DISCHARGED TO: home FINDINGS: The port site showed no purulence or other evidence of infection. Procedure Note Farzana Ignacio PA - 11/07/2024 EXAMINATION: PORT REMOVAL HISTORY: This is a 49-year-old male with a history of lymphoma with a right chest port placed on 06/2022. CT/PET done on 10/19/24 likely represents fibrin sheath at the tip of the catheter, Patient reports that his treatment has been completed and no longer needs the port. PROVIDER PRESENCE: Farzana Ignacio PA-C, was present from the beginning to the end of the procedure. SEDATION: The patient did not require conscious sedation. TECHNIQUE: The risks, benefits and alternatives were discussed and informed consent was obtained. Prior to beginning the procedure, Arvilla Protocol was used to confirm the patient's identity and planned procedure. Fluoroscopy time has been recorded in the electronic medical record. Maximum sterile barriers including cap, mask, hand hygiene, sterile gloves, sterile gown, large sterile drape and 2% chlorhexidine for cutaneous antisepsis were used. A fluoroscopic image was recorded prior to the beginning of the procedure. The skin adjacent to the right chest wall port was sterilely prepped, draped and infiltrated with 1% lidocaine. After making a short transverse incision, the port reservoir was freed using a combination of sharp and blunt dissection. The catheter was then removed. A fluoroscopic image was recorded following removal of the port. The deep tissues were approximated using 4-0 Monocryl and 2-0 Vicryl and the incision closed using skin glue. ESTIMATED BLOOD LOSS: Minimal. CONDITION: Stable DISCHARGED TO: home FINDINGS: The port site showed no purulence or other evidence of infection. IMPRESSION: Successful port removal. Electronically signed by: Farzana Ignacio PA-C us Jennifer Denise MD IMG IR PROCEDURES Final Resul t * Differential, auto (11/07/2024 10:27 AM CLOTH FINISHING RANGE OPERATOR) Neutrophil abs 3.8 1.5 - 6.5 K/cumm Imm gran abs 0.0 0.0 - 0.1 K/cumm [facility] Lymphocyte abs 1.5 0.8 - 3.3 K/cumm [facility] Monocyte abs 0.5 0.2 - 0.8 K/cumm [facility] Eosinophil abs 0.0 0.0 - 0.5 K/cumm [facility] Basophil abs 0.0 0.0 - 0.1 K/cumm [facility] Neutrophil pct 64.7 % [facility] Comment: Interpretive Data Percent cell count reference ranges are not reported, since discordance with absolute values may lead to misinterpretation of CBC data. Current Interpretive Data was last revised on 2018. Imm gran pct 0.2 % [facility] Comment: Interpretive Data Percent cell count reference ranges are not reported, since discordance with absolute values may lead to misinterpretation of CBC data. Current Interpretive Data was last revised on 2018. Lymphocyte pct 25.9 % [facility] Comment: Interpretive Data Percent cell count reference ranges are not reported, since discordance with absolute values may lead to misinterpretation of CBC data. Current Interpretive Data was last revised on 2018. Monocyte pct 8.2 % [facility] Comment: Interpretive Data Percent cell count reference ranges are not reported, since discordance with absolute values may lead to misinterpretation of CBC data. Current Interpretive Data was last revised on 2018. Eosinophil pct 0.7 % [facility] Comment: Interpretive Data Percent cell count reference ranges are not reported, since discordance with absolute values may lead to misinterpretation of CBC data. Current Interpretive Data was last revised on 2018. Basophil pct 0.3 % [facility] Comment: Interpretive Data Percent cell count reference ranges are not reported, since discordance with absolute values may lead to misinterpretation of CBC data. Current Interpretive Data was last revised on 2018. Blood 11/07/2024 10:2 7 AM CLOTH FINISHING RANGE OPERATOR 11/07/2024 10:55 AM CLOTH FINISHING RANGE OPERATOR Jennifer Denise MD LAB BLOOD ORDERABLES Final Re sult [facility] [place] [address] * CBC with auto differential (11/07/2024 10:27 AM CLOTH FINISHING RANGE OPERATOR) WBC 5.9 3.8 - 9.9 K/cumm Hgb 16.5 13.0 - 17.5 g/dL [facility] Hct 47.7 38.9 - 50.3 % [facility] Plt 176 150 - 400 K/cumm [facility] MPV 9.9 9.1 - 12.3 fL [facility] RBC 5.23 4.30 - 5.80 M/cumm [facility] MCV 91.2 81.3 - 96.4 fL [facility] MCH 31.5 27.1 - 33.3 pg [facility] MCHC 34.6 32.3 - 35.7 g/dL [facility] RDW CV 12.7 11.1 - 14.9 % [facility] RDW SD 42.4 35.7 - 48.1 fL [facility] NRBC abs 0.00 0.00 - 0.01 K/cumm [facility] Blood 11/07/2024 10:2 7 AM CLOTH FINISHING RANGE OPERATOR 11/07/2024 10:55 AM CLOTH FINISHING RANGE OPERATOR Jennifer Denise MD LAB BLOOD ORDERABLES Final Re sult Performing Organization Address [facility] Co de Phone Number [facility] [place] [address] * (ABNORMAL) Protime-INR (11/07/2024 10:27 AM CLOTH FINISHING RANGE OPERATOR) PT 13.5(H) 9.7 - 13.0 sec INR 1.24(H) 0.90 - 1.20 [facility] Comment: Interpretive data Oral anticoagulant therapeutic ranges: Venous thromboembolism prophylaxis or treatment: 2.0-3.0 CARDIOLOGY Standard range: 2.0-3.0 High-intensity range: 2.5-3.5 Refer to indication-specific guidelines for appropriate target ranges for prosthetic heart valve replacement. Current interpretive data was last revised on 2019. Blood 11/07/2024 10:2 7 AM CLOTH FINISHING RANGE OPERATOR 11/07/2024 10:55 AM CLOTH FINISHING RANGE OPERATOR Jennifer Denise MD LAB BLOOD ORDERABLES Final Re sult Performing Organization Address [facility] Co de Phone Number [facility] [place] [address] * eGFR (10/19/2024 10:56 AM CLOTH FINISHING RANGE OPERATOR) eGFR >90 >=60 mL/min/1. 73 m2 Comment: Interpretive Data Reference Interval Normal >/= 90 mL/min/1.73m2 Mildly decreased* 60 - 89 mL/min/1.73m2 Mildly to moderately decreased 45 - 59 mL/min/1.73m2 Moderately to severely decreased 30 - 44 mL/min/1.73m2 Severely decreased 15 - 29 mL/min/1.73m2 Kidney Failure < 15 mL/min/1.73m2 *Relative to young adult level Estimated glomerular filtration rate is determined by the 2020 CKD-EPI equation recommended by the National Kidney Foundation (A Unifying Approach to GFR Estimation: Recommendations of the NKF-ASK Task Force on Reassessing the Inclusion of Race in Diagnosing Kidney Disease, JASN 2020). The CKD-EPI equation should not be used for patients with unstable renal function and has not been validated in children and those over 70. Current interpretive data was last reviewed 2021. Blood 10/19/2024 10:5 6 AM CLOTH FINISHING RANGE OPERATOR 10/19/2024 11:05 AM CLOTH FINISHING RANGE OPERATOR us Jennifer Denise MD LAB BLOOD ORDERABLES Final Re sult [facility] [place] [address] * Differential, auto (10/19/2024 10:56 AM CLOTH FINISHING RANGE OPERATOR) Neutrophil abs 3.5 1.5 - 6.5 K/cumm Comment:Testing performed by : [facility], [address] [place] [phone] Lymphocyte abs 1.5 0.8 - 3.3 K/cumm [facility] Comment:Testing performed by : [facility], [address] [place] [phone] Monocyte abs 0.3 0.2 - 0.8 K/cumm [facility] Comment:Testing performed by : [facility], [address] [place] [phone] Eosinophil abs 0.1 0.0 - 0.5 K/cumm [facility] Comment:Testing performed by : [facility], [address] [place] [phone] Basophil abs 0.0 0.0 - 0.1 K/cumm [facility] Comment:Testing performed by : [facility], [address] [place] [phone] Neutrophil pct 64.9 % [facility] Comment: Interpretive Data Percent cell count reference ranges are not reported, since discordance with absolute values may lead to misinterpretation of CBC data. Current Interpretive Data was last revised on 2018. Testing performed by: [facility], [address] [place] [phone] Lymphocyte pct 28.5 % CERNER [facility] Comment: Interpretive Data Percent cell count reference ranges are not reported, since discordance with absolute values may lead to misinterpretation of CBC data. Current Interpretive Data was last revised on 2018. Testing performed by: [facility], [address] [place] [phone] Monocyte pct 5.1 % DENIS LUTZ Comment: Interpretive Data Percent cell count reference ranges are not reported, since discordance with absolute values may lead to misinterpretation of CBC data. Current Interpretive Data was last revised on 2018. Testing performed by: [facility], [address] [place] [phone] Eosinophil pct 1.0 % DENIS [facility] Comment: Interpretive Data Percent cell count reference ranges are not reported, since discordance with absolute values may lead to misinterpretation of CBC data. Current Interpretive Data was last revised on 2018. Testing performed by: [facility], [address] [place] [phone] Basophil pct 0.5 % DENIS [facility] Comment: Interpretive Data Percent cell count reference ranges are not reported, since discordance with absolute values may lead to misinterpretation of CBC data. Current Interpretive Data was last revised on 2018. Testing performed by: [facility], [address] [place] [phone] Blood 10/19/2024 10:5 6 AM CLOTH FINISHING RANGE OPERATOR 10/19/2024 11:02 AM CLOTH FINISHING RANGE OPERATOR us Jennifer Denise MD LAB BLOOD ORDERABLES Final Re sult [facility] [place] [address] * CBC with auto differential (10/19/2024 10:56 AM CLOTH FINISHING RANGE OPERATOR) WBC 5.4 3.8 - 9.9 K/cumm Comment:Testing performed by : [facility], [address] [place] [phone] Hgb 16.4 13.0 - 17.5 g/dL CERNER BJ Comment:Testing performed by : [facility], [address] [place] [address] Hct 49.4 38.9 - 50.3 % CERNER BJ Comment:Testing performed by : [facility], [address] [place] [address] Plt 186 150 - 400 K/cumm CERNER BJ Comment:Testing performed by : [facility], [address] [place] [address] MPV 7.9 6.8 - 10.4 fL CERNER BJ Comment:Testing performed by : [facility], [address] [place], [place] [phone] RBC 5.25 4.30 - 5.80 M/cumm CERNER BJ Comment:Testing performed by : [facility], [address] [place] [address] MCV 94.0 81.3 - 96.4 fL CERNER BJ Comment:Testing performed by : [facility], [address] [place] [address] MCH 31.2 27.1 - 33.3 pg [facility]ERNER BJ Comment:Testing performed by : [facility], [address] [place] [address] MCHC 33.2 32.3 - 35.7 g/dL CERNER BJ Comment:Testing performed by : [facility], [address] [place] [address] RDW CV 13.6 11.1 - 14.9 % CERNER BJ Comment:Testing performed by : [facility], [address] [place] [address] NRBC abs 0.00 0.00 - 0.01 K/cumm CERNER BJ Comment:Testing performed by : [facility], [address] [place] [address] Blood 10/19/2024 10:5 6 AM CLOTH FINISHING RANGE OPERATOR 10/19/2024 11:02 AM CLOTH FINISHING RANGE OPERATOR Jennifer Denise MD LAB BLOOD ORDERABLES Final Re sult Performing Organization Address City/[facility]/ZIP Co de Phone Number [facility] [place] [address] * Lactate dehydrogenase (LD) (10/19/2024 10:56 AM CLOTH FINISHING RANGE OPERATOR) Lactate dehydrogenase (LDH) 177 100 - 250 Units/L Blood 10/19/2024 10:5 6 AM CLOTH FINISHING RANGE OPERATOR 10/19/2024 11:05 AM CLOTH FINISHING RANGE OPERATOR Jennifer Denise MD LAB BLOOD ORDERABLES Final Re sult Performing Organization Address [facility] Co de Phone Number [facility] [place] [address] * (ABNORMAL) Comprehensive metabolic panel (10/19/2024 10:56 AM CLOTH FINISHING RANGE OPERATOR) Pathologist [facility] Sodium 138 135 - 145 mmol/L Potassium, pl 3.8 3.3 - 4.9 mmol/L [facility] Chloride 104 97 - 110 mmol/L [facility] CO2 30 22 - 32 mmol/L [facility] Anion gap 4 2 - 15 mmol/L [facility] BUN 10 6 - 25 mg/dL [facility] Creatinine 0.65(L) 0.80 - 1.30 mg/dL [facility] Glucose 151 70 - 199 mg/dL [facility] Comment: Interpretive Data Fasting glucose >/= 126 mg/dl is diagnostic for diabetes. Fasting is defined as no caloric intake for at least 8 hours. Fasting glucose between 100 mg/dl to 125 mg/dl is diagnostic of prediabetes. In a patient with classic symptoms of hyperglycemia or hyperglycemic crisis, a random glucose >/= 200 mg/dl is diagnostic for diabetes. In the absence of unequivocal hyperglycemia, results should be confirmed by repeat testing. The classification and Diagnosis of Diabetes Diabetes Care 2021; 46: S19-S40. Current interpretive data was last revised 2022. Calcium 8.9 8.5 - 10.3 mg/dL [facility] Bilirubin, total 0.4 0.1 - 1.2 mg/dL [facility] Protein, pl 6.4(L) 6.5 - 8.5 g/dL [facility]J Albumin 4.2 3.5 - 5.0 g/dL [facility] Alk phos 110 40 - 130 Units/L [facility] ALT 64(H) 7 - 55 Units/L [facility] AST 34 10 - 50 Units/L [facility] Blood 10/19/2024 10:5 6 AM CLOTH FINISHING RANGE OPERATOR 10/19/2024 11:05 AM CLOTH FINISHING RANGE OPERATOR us Jennifer Denise MD LAB BLOOD ORDERABLES Final Re sult [facility] [place] [address] * PET/CT FDG Skull to Thigh (10/19/2024 10:06 AM CLOTH FINISHING RANGE OPERATOR) Anatomical Region Laterality Modality N/A Positron Emissio n Tomography (PET) 10/19/2024 10:4 2 AM CLOTH FINISHING RANGE OPERATOR Impressions 10/19/2024 12:04 PM CLOTH FINISHING RANGE OPERATOR 1. Ongoing complete metabolic response. 2. New, intense FDG activity at the distal central venous port catheter tip, likely represents a new/developing fibrin sheath. The 5PS score is most useful in lymphoma types which are routinely FDG-avid. Lymphomas can be roughly grouped as follows: * Routinely FDG-avid: Hodgkin lymphoma, diffuse large B-cell lymphomas, follicular lymphoma, mantle cell lymphoma, mark peripheral T-cell lymphoma, lymphoblastic lymphoma, and Burkitt lymphoma. * Generally not FDG-avid: Small lymphocytic lymphoma and chronic lymphocytic leukemia * Variably FDG-avid (both varying between patients and between lesions): Marginal-zone lymphomas and some T-cell lymphomas, notably cutaneous T-cell lymphomas Caution should be used when applying the 5PS score in the second and third categories above. Dictated by: Marco Antonio Lawrence M.D. The radiology attending physician has personally reviewed this study, and had reviewed and/or edited this written report and agrees with it. Electronically signed by: Joseph Webber M.D. Narrative 10/19/2024 12:04 PM CLOTH FINISHING RANGE OPERATOR EXAMINATION: TUMOR FDG-PET/CT IMAGING DATE OF STUDY: 10/19/2024 SCANNER: [facility] KOTURA (SQ1). This is a high-resolution scanner, which can result in higher SUVs (and even detection of new small lesions) compared to older scanners. RADIOPHARMACEUTICAL: 9.624 mCi F-18 Fluorodeoxyglucose (FDG) i.v. 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 The study is requested for follow-up. Subsequent treatment strategy. TECHNIQUE: The patient's fasting blood glucose level, measured by glucometer before injection of FDG, was 88 mg/dL. After intravenous administration of FDG, noncontrast CT images were obtained for attenuation correction and for fusion with emission PET images to allow for anatomical localization of PET findings. Emission PET images were then obtained. The study was interpreted on the [facility] workstation. The mean liver SUV (reported for senior software quality engineer purposes) is 2.8. The total scanned area was skull base to proximal thighs. Images of the body were obtained starting 58 minutes after injection of tracer. All reported SUVs are maximum SUVs, unless otherwise specified. COMPARISON: PET from 05/11/2024. DESCRIPTORS OF LESION FDG AVIDITY: Minimal: <= blood pool Mild: > blood pool and <= liver Moderate: > liver and <= 2x SUVmax liver Moderate to marked: >2x SUVmax liver and <= 3x SUVmax liver Marked: > 3x SUVmax liver FINDINGS: No FDG avid suspicious mark or extranodal lesions. New focus of intense FDG activity at the distal central venous port catheter tip, likely representing a new/developing fibrin sheath. Mild FDG uptake along the distal esophagus, likely reflux esophagitis. Additional CT findings: Right internal jugular port catheter terminates at the superior cavoatrial junction. Dependent bibasilar atelectasis. Unchanged sclerosis along the right lateral 7th rib, likely the sequelae of prior trauma. Procedure Note Joseph Webber MD - 10/19/2024 EXAMINATION: TUMOR FDG-PET/CT IMAGING DATE OF STUDY: 10/19/2024 SCANNER: [facility] Quadra (SQ1). This is a high-resolution scanner, which can result in higher SUVs (and even detection of new small lesions) compared to older scanners. RADIOPHARMACEUTICAL: 9.624 mCi F-18 Fluorodeoxyglucose (FDG) i.v. 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 The study is requested for follow-up. Subsequent treatment strategy. TECHNIQUE: The patient's fasting blood glucose level, measured by glucometer before injection of FDG, was 88 mg/dL. After intravenous administration of FDG, noncontrast CT images were obtained for attenuation correction and for fusion with emission PET images to allow for anatomical localization of PET findings. Emission PET images were then obtained. The study was interpreted on the [facility] workstation. The mean liver SUV (reported for senior software quality engineer purposes) is 2.8. The total scanned area was skull base to proximal thighs. Images of the body were obtained starting 58 minutes after injection of tracer. All reported SUVs are maximum SUVs, unless otherwise specified. COMPARISON: PET from 05/11/2024. DESCRIPTORS OF LESION FDG AVIDITY: Minimal: <= blood pool Mild: > blood pool and <= liver Moderate: > liver and <= 2x SUVmax liver Moderate to marked: >2x SUVmax liver and <= 3x SUVmax liver Marked: > 3x SUVmax liver FINDINGS: No FDG avid suspicious mark or extranodal lesions. New focus of intense FDG activity at the distal central venous port catheter tip, likely representing a new/developing fibrin sheath. Mild FDG uptake along the distal esophagus, likely reflux esophagitis. Additional CT findings: Right internal jugular port catheter terminates at the superior cavoatrial junction. Dependent bibasilar atelectasis. Unchanged sclerosis along the right lateral 7th rib, likely the sequelae of prior trauma. IMPRESSION: 1. Ongoing complete metabolic response. 2. New, intense FDG activity at the distal central venous port catheter tip, likely represents a new/developing fibrin sheath. The 5PS score is most useful in lymphoma types which are routinely FDG-avid. Lymphomas can be roughly grouped as follows: * Routinely FDG-avid: Hodgkin lymphoma, diffuse large B-cell lymphomas, follicular lymphoma, mantle cell lymphoma, mark peripheral T-cell lymphoma, lymphoblastic lymphoma, and Burkitt lymphoma. * Generally not FDG-avid: Small lymphocytic lymphoma and chronic lymphocytic leukemia * Variably FDG-avid (both varying between patients and between lesions): Marginal-zone lymphomas and some T-cell lymphomas, notably cutaneous T-cell lymphomas Caution should be used when applying the 5PS score in the second and third categories above. Dictated by: Marco Antonio Lawrence M.D. The radiology attending physician has personally reviewed this study, and had reviewed and/or edited this written report and agrees with it. Electronically signed by: Joseph Webber M.D. us Jennifer Denise MD IMG PET PROCEDURES Final Resu lt * MRI Brain W WO Contrast (10/19/2024 7:22 AM CLOTH FINISHING RANGE OPERATOR) Anatomical Region Laterality Modality Head and Neck N/A Magnetic Resonan ce 10/19/2024 8:41 AM CLOTH FINISHING RANGE OPERATOR Impressions 10/19/2024 9:08 AM CLOTH FINISHING RANGE OPERATOR Unchanged focus of FLAIR signal hyperintensity within the right cerebral peduncle and right toy consistent with treated disease. No evidence for recurrent intracranial disease. Dictated by: Chester Chamorro MD PHD The radiology attending physician has personally reviewed this study, and had reviewed and/or edited this written report and agrees with it. Electronically signed by: Leigh Chinchilla M.D. Narrative 10/19/2024 9:08 AM CLOTH FINISHING RANGE OPERATOR EXAMINATION: Magnetic resonance imaging (MRI) of the brain and brainstem without and with contrast HISTORY: Anaplastic large cell lymphoma, most recently status post autologous stem cell transplantation 01/22/2023. TECHNIQUE: Multiplanar multi-weighted MRI of the brain and brainstem was performed without and with intravenous contrast using the tumor brain protocol. Contrast information: 20 mL Gadoterate Meglumine COMPARISON: 05/11/2024 FINDINGS: There is again T2/FLAIR signal hyperintensity within the right cerebral peduncle and toy that appears similar to prior exams since 2022. No corresponding diffusion restriction, increased perfusion, or contrast enhancement is seen. No new suspicious intracranial lesion. A few scattered punctate white matter FLAIR hyperintensities are nonspecific and unchanged. The scalp and calvarium are normal. The superior sagittal sinus demonstrates normal venous flow. The corpus callosum is normal in shape and signal intensity. The posterior fossa is unremarkable. The pituitary and sella are normal. The brainstem and craniocervical junction are unremarkable. Diffusion weighted images reveal no hyperintensities to suggest acute cerebral infarction. The susceptibility weighted sequences reveal no evidence of acute or chronic hemorrhage. The ventricles are normal in size and position without evidence of hydrocephalus. The paranasal sinuses are normal. The visualized portions of the mastoids are unremarkable. The orbits appear normal. Normal flow voids are demonstrated in the carotid arteries and basilar artery. Procedure Note Leigh Chinchilla MD - 10/19/2024 EXAMINATION: Magnetic resonance imaging (MRI) of the brain and brainstem without and with contrast HISTORY: Anaplastic large cell lymphoma, most recently status post autologous stem cell transplantation 01/22/2023. TECHNIQUE: Multiplanar multi-weighted MRI of the brain and brainstem was performed without and with intravenous contrast using the tumor brain protocol. Contrast information: 20 mL Gadoterate Meglumine COMPARISON: 05/11/2024 FINDINGS: There is again T2/FLAIR signal hyperintensity within the right cerebral peduncle and toy that appears similar to prior exams since 2022. No corresponding diffusion restriction, increased perfusion, or contrast enhancement is seen. No new suspicious intracranial lesion. A few scattered punctate white matter FLAIR hyperintensities are nonspecific and unchanged. The scalp and calvarium are normal. The superior sagittal sinus demonstrates normal venous flow. The corpus callosum is normal in shape and signal intensity. The posterior fossa is unremarkable. The pituitary and sella are normal. The brainstem and craniocervical junction are unremarkable. Diffusion weighted images reveal no hyperintensities to suggest acute cerebral infarction. The susceptibility weighted sequences reveal no evidence of acute or chronic hemorrhage. The ventricles are normal in size and position without evidence of hydrocephalus. The paranasal sinuses are normal. The visualized portions of the mastoids are unremarkable. The orbits appear normal. Normal flow voids are demonstrated in the carotid arteries and basilar artery. IMPRESSION: Unchanged focus of FLAIR signal hyperintensity within the right cerebral peduncle and right toy consistent with treated disease. No evidence for recurrent intracranial disease. Dictated by: Chester Chamorro MD PHD The radiology attending physician has personally reviewed this study, and had reviewed and/or edited this written report and agrees with it. Electronically signed by: Leigh Chinchilla M.D. us Jennifer Dneise MD IMG MRI PROCEDURES Final Resu lt * Hepatitis panel, acute (06/05/2022 2:52 AM CDT) Hep A IgM Nonreactive Non[facility] Comment: Interpretive Data: If Hep A IgM Ab is reported as Equivocal, a new sample should be drawn in two weeks for testing. Current interpretive data was last revised on 20. Hep B core IgM Nonreactive Nonreactive [facility] Comment: Interpretive Data If HepB Core IgM Ab is reported as Equivocal, a new sample should be drawn in two weeks for testing. Current interpretive data was last revised on 20. Hep C Ab Nonreactive Nonreactive [facility] Comment:Antibodies to HCV no t detected. Does NOT exclude the possibility of recent exposure to HCV. HepBsAg Nonreactive Nonreactive [facility] Blood 06/05/2022 2:52 AM CDT 06/05/2022 3:00 AM CDT us Elenita Hinojosa NP LAB MICROBIOLOGY - GENERA L ORDERABLES Edited Result - Final DENIS [facility] [place] [address] from Last 3 Months or Most Recently Relevant to Health Maintenance Insurance [facility] HMO/PPO Address: [facility] [address] [place] [address] GENERIC COPAY ASSIST [facility] HMO/PPO Address: [facility] [id number] [place] [phone] Advance Directives For more information, please contact: [phone] * Full Code (Latest Code Status on File) Date Activated Date Inactivated Comments 11/07/2024 11:00 AM 11/08/2024 5:19 AM * Full Code Date Activated Date Inactivated Comments 01/15/2023 12:00 PM 02/03/2023 6:45 PM * Full Code Date Activated Date Inactivated Comments 01/08/2023 10:00 AM 01/09/2023 5:16 AM * Full Code Date Activated Date Inactivated Comments 10/22/2022 5:25 PM 10/25/2022 1:28 PM * Full Code Date Activated Date Inactivated Comments 09/18/2022 2:05 PM 09/27/2022 1:37 PM Care Teams Fermentologist Relationship Specialty Start Date End Date Max Al NP [address] [facility] [address] [place] [address] PCP - General Nurse Practitioner 04/28/24 Hermilo Valiente DO Internal Medicine 05/18/22 Jennifer Denise MD Medical Oncologist/Snowboarding Instructor Medical Oncology 06/09/22 Fina Morgan MD Consulting Physician Medical Oncology 07/17/22
--- OUTSIDE RECORDS SUMMARY | 2024-12-27 20:52 | XMS_ITS ---
Author Organization [facility] Address [address] [place] [address] Care Team Providers Care Evp [employer] Multimedia Sales Name Role Phone Hermilo Valiente DO Unavailable Jennifer Denise MD Unavailable [phone] Fina Morgan MD Unavailable [phone] Max Al NP Primary Care Provider [phone] Active Problems Patient Care Coordination No te Formatting of this note is d ifferent from the original. 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 [address] Treatment Plan BEAM Clinical Trial Reason for Admission BEAM AUTO 01/22/23 Transplant/IEC Planning BMT/IEC Plan D0 01/22/23 HLA typing/IDMs Insurance Approvals/Issues Discharge Planning Anticipated Discharge Date 02/04 Patient Education Completed Discharge teaching completed by Sapna 02/03 Issue to be Resolved Before Discharge Discharge Disposition Requests Sent to Case Management and/or Medical Assistants Post-Discharge Follow-Up Living Situation/Distance from [facility] [address] [place] [address] (25 MIN) Caregiver Lab/Transfusion Frequency Lab/plt1 02/05, [...] pain. Assessment & Plan (11/10/2023 7:09 PM DIRECTOR OF RECREATION THERAPY): Does have some ongoing axial pain but overall much improved. Discussed LMBB/RFA - wants to hold off at this time. Lumbar disc disease with radiculopathy Overview (11/10/2023): LESI L5-S1 09/28/23 - >70% [...] duloxetine. Assessment & Plan (11/10/2023 7:11 PM DIRECTOR OF RECREATION THERAPY): Benefit from LESI and duloxetine. Will increase duloxetine to 60mg/day. If he finds SE are worse or not worth the benefit he will continue at 30mg/day. Repeat LESI prn Assessment & Plan (08/30/2023 2:13 PM DIRECTOR OF RECREATION THERAPY): Though central pain is likely a component [...] anaplastic large cell lymphoma diagnosed 05/30/2022 with REGULATORY LEAD involvement. He has completed 6 cycles of [...] thrombocytopenia. Assessment & Plan (08/27/2022 7:45 PM DIRECTOR OF RECREATION THERAPY): Dx 06/2022 of LLE -cont eliquis Depression 08/27/2022 Assessment & Plan (01/15/2023 12:57 PM CDT): -continue home escitalopram 10 Assessment & Plan (08/27/2022 7:46 PM DIRECTOR OF RECREATION THERAPY): Cont lexapro Tear of left glenoid labrum [...] Diff negative, stool culture NGTD, prn Imodium, JONATAN, IVF. KUB with ileus, caution with opioids, antibiotics as above Resolved Assessment & Plan (06/28/2022 10:13 AM CDT): C. Diff negative, stool culture NGTD, prn Imodium, JONATAN, IVF. KUB with ileus, caution with opioids, antibiotics as above Assessment & Plan (06/27/2022 1:52 PM CDT): C. Diff negative, stool culture NGTD, prn Imodium, JONATAN, IVF. KUB with ileus, caution with opioids, antibiotics as above Assessment & Plan (06/26/2022 11:41 AM CDT): C. Diff negative, stool culture NGTD, prn Imodium, JONATAN, IVF. KUB with ileus, caution with opioids, antibiotics as above Assessment & Plan (06/21/2022 1:00 PM CDT): C. Diff negative, stool culture NGTD, prn Imodium, JONATAN, IVF. KUB with ileus, caution with opioids, antibiotics as above Assessment & Plan (06/20/2022 10:53 AM CDT): C. Diff negative, stool culture pending, prn Imodium, JONATAN, IVF Mucositis due to chemotherapy 06/20/2022 Assessment [...] normotension Assessment & Plan (08/27/2022 7:46 PM DIRECTOR OF RECREATION THERAPY): Cont losartan (for candesartan per formulary) and [...] 2021 Assessment & Plan (08/27/2022 7:44 PM DIRECTOR OF RECREATION THERAPY): Admitted for C4 HD-MTX dose reduced given [...] 06/08/2022 Assessment & Plan (08/27/2022 7:43 PM DIRECTOR OF RECREATION THERAPY): Dx 05/2022 with adrenal biopsy c/w ALK [...] 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 Intracranial mass 04/26/2022 Current Treatment and Therapy Plans APHERESIS CELLULAR THERAPY CELL COLLECTION* Plan Start Date:01/12/2023 Plan Provider:Fina Morgan MD Linked Problems Anaplastic 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 COVID-19 - BMT (CMV NEGATIVE/UNTESTED) ADULT BLOOD AND PLATELET ADMINISTRATION FOR INPATIENT* Plan Start Date:01/29/2023 Plan Provider:Rodney Riley MD Linked Problems Large cell lymphoma (HCC) Treatment Medications No medications scheduled. Other Current Plans IV MAINTENANCE THERAPY PLAN & Alteplase (CATHFLO ACTIVASE) - orders for occluded catheters* Plan Start Date:07/30/2022 Plan Provider:Adryan Waldron MD PhD Linked Problems Left adrenal mass Treatment Medications No medications scheduled. Past Treatment and Therapy Plans Blood Products Plan Name Start Date Discontinue Date Treatment Medications Discontinue Reason Plan Provider COVID-19 - BMT (CMV NEGATIVE/UNTESTED) ADULT BLOOD AND PLATELET ADMINISTRATION FOR OUTPATIENT 02/03/2023 10/13/2024 No medications scheduled. Therapy Complete Fina Morgan MD Oncology Chemotherapy Treatment Plan Name Start Date Discontinue Date Treatment Medications Discontinue Reason Plan Provider Cycles Post-SCT Vaccinations 024 09/26/2024 No medications scheduled. Therapy Complete Jennifer Hannah MD 4 of 7 cycles completed [id number] OUTPT - [facility] - Heme/BMT - Duvelisib Maintenance after Autologous SCT 02/18/20 23 02/15/2023 [facility] duvelisib () Patient Preference Fina Morgan MD Treatment not started BMT - Standard Hematopoietic Progenitor Cell Mobilization (Auto) Standard GCSF and Plerixafor (Mozobil) 023 2023 plerixafor (MOZOBIL) Therapy Complete Fina Morgan MD 1 of 1 cycle started INPT - High-Dose Methotrexate 14 Day Cycles - Lymphoma 022 11/05/2022 leucovorinmethotrexate IVPB in 1,000 mL Therapy Complete Jennifer Hannah MD 6 of 6 cycles started Oncology Supportive Care Plan Name Start Date Discontinue Date Treatment Medications Discontinue Reason Plan Provider Hydration Therapy Plan 07/16/2022 10/13/2024 No medications scheduled. Therapy Complete Jennifer Denise MD Oncology Treatment (2) Plan Name Start Date Discontinue Date Treatment Medications Discontinue Reason Plan Provider Cycles INPT - BEAM (carmustine / etoposide / cytarabine / melphalan) - BMT - Lymphoma 12/14/19 23 2023 carmustine (BICNU)carmustine (BICNU) IVPB in 1,000 mLcytarabine (JAJA-C) IVPB (for doses <1,000 mg/m2)etoposide (VEPESID) IVPB in 750 mLmelphalan (ALKERAN) IVPB in 250 mL Therapy Complete Fina Morgan MD 1 of 1 cycle started CHOEP: Cyclophosphamide / DOXOrubicin (ADRIAMYCIN) / VinCRIStine / Etoposide / PredniSONE 21 Day Cycles - Lymphoma 06/10/20 22 07/16/2022 cycloPHOSphamide (CYTOXAN)cycloPHOS phamide IVPB in 250 mL (vial 200 mg/mL)([id number])DOXOr ubicin (ADRIAMYCIN)DOXOru bicin (ADRIAMYCIN) 2 mg/mLetoposide (TOPOSAR)etoposide (TOPOSAR;VEPESID)e toposide (VEPESID) IVPB in 750 mLvinCRIStinevinCR IStine (ONCOVIN) IVPB in 50 mL Provider Discretion Jennifer Hannah MD 2 of 6 cycles started Oncology Treatment (3) Plan Name Start Date Discontinue Date Treatment Medications Discontinue Reason Plan Provider Cycles BV-CHP: Brentuximab / Cyclophosphamide / DOXOrubicin (ADRIAMYCIN) / PredniSONE 21 Day Cycles - Lymphoma 07/16/20 22 12/15/2022 brentuximab (ADCETRIS)brentuxim ab vedotin (ADCETRIS) IVPB in 100 mLcycloPHOSphamide (CYTOXAN)cycloPHOSp hamide IVPB in 250 mL (vial 200 mg/mL)([id number])DOXOru bicin (ADRIAMYCIN)DOXOrub icin (ADRIAMYCIN) 2 mg/mL Therapy Complete Jennifer Hannah MD 6 of 6 cycles started Lifetime Dose Tracking * Chemical Lifetime Dose Automatic Entry Manual Entr y doxorubicin 297.99 mg/m2 (664.6 mg) 297.99 mg/m2 (664.6 mg) 0 mg/m2 (0 mg) Fluoro Time 1.747 minutes 1.747 minutes 0 minutes cyclophosphamide 4,474.347 mg/m2 (9,980 mg) 4,474.347 mg/m2 (9,980 mg) 0 mg/m2 (0 mg) carmustine 273.363 mg/m2 (636.936 mg) 273.363 mg/m2 (636.936 mg) 0 mg/m2 (0 mg) etoposide 819.981 mg/m2 (1,910 mg) 819.981 mg/m2 (1,910 mg) 0 mg/m2 (0 mg) doxorubicin isotoxic equivalent (Please manually verify calculation) 297.99 mg/m2 (664.6 mg) 297.99 mg/m2 (664.6 mg) 0 mg/m2 (0 mg) Air kerma at the reference point (Ka,r) 23.89 mGy 23.89 mGy 0 mGy DLP 2,602 mGycm 2,602 mGycm 0 mGycm Resolved Problems Problem Noted Date Diagnosed Date Resolved Date REGULATORY LEAD lymphoma 07/30/2022 08/27/2022
--- OUTSIDE RECORDS SUMMARY | 2024-12-27 20:52 | XMS_ITS | Encounter Summary ---
Author Organization [facility] Address [address] [place] [address] Phone Care Team Providers Care Fabric Sourcer Name Role Phone Hermilo Valiente DO Primary Care Provider [phone] Jose Diallo MD Unavailable [phone] Encounter Details Date Type Department Care Team (Late st Contact Info) Description 05/20/2022 Telephone [facility] [address] [place] [address] Jose Diallo MD [address] [place] [address] Social History Tobacco Use Types [...] on filedocumented in this encounter Care Teams Fabric Sourcer Relationship Specialty Start Date End Date Hermilo Valiente DO [address] [address] PCP - General Internal Medicine 04/27/22 Jose Diallo MD [address] [place] [address] Consulting Physician Oncology 05/01/22 documented as of this encounter
--- OUTSIDE RECORDS SUMMARY | 2024-12-27 20:52 | XMS_ITS | Encounter Summary ---
Author Organization [facility] Address [address] [place] [address] Phone Care Team Providers Care Patternmaker All Around Name Role Phone Hermilo Valiente DO Primary Care Provider [phone] Hermilo Valiente DO Unavailable Jennifer Denise MD Unavailable [phone] Fina Morgan MD Unavailable [phone] Max Al NP Primary Care Provider [phone] Encounter Details Date Type Department Care Team (Late st Contact Info) Description 06/15/2022 Telephone [facility] Oncology [address] [facility] Advanced Medicine 7th [place] [address] [place] [address] Jacki Lee NP [address] [place] [address] Social History Tobacco Use Types Packs/Day Years Used Date Smoking Tobacco: Former Cigarettes 1 25.5 1 997 - 04/24/2022 AUDIT-C Answer Date Recorded Q1: How often do you have a drink containing alc ohol? Monthly or less 05/26/2022 Q2: How many drinks containi ng alcohol do you have on a typical day when you are drinking? 1 or 2 05/26/2022 Q3: How often do you have si x or more drinks on one occasion? Monthly 05/26/2022 Sex and Gender Information Value Date Recorded Sex Assigned at Not on file Legal Sex Male 6:00 PM CONVENTIONAL MACHINIST Gender Identity Male 05/26/2022 12:46 PM CDT Sexual Orientation Not on file documented as of this encounter Plan of Treatment Not on file documented as of this encounter Visit Diagnoses Diagnosis Neoplasm/cancer (HCC)- Primary Neoplasm of unspecified nature, site unspecified documented in this encounter Orders Nursing Count Last Ordered Date First Orde red Date DISCONTINUE NON-TUNNELED LUIS TRAL LINE (SPECIFY) 1 06/15/2022 documented in this encounter Additional Health Concerns Infection Onset Date Last Indicated Resolved Time COVID: Suspected 06/19/2022 06/19/2022 06/19/2022 4:28 PM CDT COVID: Suspected 12/14/2022 12/14/2022 12/14/2022 2:39 PM CONVENTIONAL MACHINIST COVID19 12/14/2022 12/14/2022 12/24/2022 3:05 AM CONVENTIONAL MACHINIST COVID: Recovered Comment:Added based on recent COVID infection. 12/24/2022 01/01/2023 03/24/2023 3:05 AM C DT documented as of this encounter Care Teams Patternmaker All Around Relationship Specialty Start Date End Date Hermilo Valiente DO PCP - General Internal Medicine 05/18/22 04/27/24 Max Al NP [address] [place] [address] PCP - General Nurse Practitioner 04/28/24 Hermilo Valiente DO Internal Medicine 05/18/22 Jennifer Denise MD Medical Oncologist/Cdl Flatbed Truck Driver Medical Oncology 06/09/22 Fina Morgan MD Consulting Physician Medical Oncology 07/17/22 documented as of this encounter
--- OUTSIDE RECORDS SUMMARY | 2024-12-27 20:52 | XMS_ITS | Encounter Summary ---
Author Organization [facility] Address [address] [place] [address] Phone Care Team Providers Care Able Bodied Tankerman Name Role Phone Hermilo Valiente DO Primary Care Provider [phone] Jose Diallo MD Unavailable Reason for Visit * Reason Comments Medication Refill Encounter Details Date Type Department Care Team (Late st Contact Info) Description 07/30/2022 Refill [facility] [address] [place] [address] Jose Diallo MD [address] [place] [address] Medication Refill Social History Tobacco Use [...] MD - 07/30/2022 3:57 PM CDT Nyasia hawng * Telephone Encounter - Wally-Yvette Padilla RN - 07/30/2022 10:16 AM CDT Refill request from pharmacy. Please fill if appropriate. documented in this encounter Plan of Treatment Not on file documented as of this encounter Visit Diagnoses Not on filedocumented in this encounter Care Teams Able Bodied Tankerman Relationship Specialty Start Date End Date Hermilo Valiente DO [address] [address] PCP - General Internal Medicine 04/27/22 Jose Diallo MD [address] [place] [phone] Consulting Physician Oncology 05/01/22 documented as of this encounter
--- OUTSIDE RECORDS SUMMARY | 2024-12-27 20:52 | XMS_ITS | Encounter Summary ---
Author Organization [facility] Address [address] [place] [address] Phone Care Team Providers Care Doweling Machine Operator Name Role Phone Hermilo Valiente DO Primary Care Provider [phone] Hermilo Valiente DO Unavailable Jennifer Denise MD Unavailable [phone] Fina Morgan MD Unavailable [phone] Max Al NP Primary Care Provider [phone] Encounter Details Date Type Department Care Team (Late st Contact Info) Description 05/03/2023 Documentation [facility] Oncology [address] [facility] 7th [place] [address] [place] [address] Jacki Lee NP [address] [place] [address] Social History Tobacco Use Types Packs/Day Years Used Date Smoking Tobacco: Former Cigarettes 1 25.5 1 997 - 04/24/2022 Smokeless Tobacco: Never Social Connection and Isolat ion Panel [NHANES] Answer Date Recorded In a typical week, how many times do you talk on the phone with family, friends, or neighbors? More than three times a week 01/18/2023 How often do you get togethe r with friends or relatives? More than three times a week 01/18/2023 How often do you attend chur ch or holiness services? Never 01/18/2023 Do you belong to any clubs o r organizations such as amish groups, unions, fraternal or athletic groups, or school groups? No 01/18/2023 How often do you attend meet ings of the clubs or organizations you belong to? Never 01/18/2023 Are you , , di vorced, , never , or living with a partner? 01/18/2023 AUDIT-C Answer Date Recorded Q1: How often do you have a drink containing alcohol? Never 01/08/2023 Q2: How many drinks containi ng alcohol do you have on a typical day when you are drinking? Patient does not drink Q3: How often do you have si x or more drinks on one occasion? Never 01/08/2023 Overall Financial Resource Strain (CARDIA) Answe r [...] place to sleep or slept in a retirement (including now)? No 01/18/2023 Personal Safety Answer Date Recorded Have you ever been in or are you currently in a harmful physical or emotional relationship or is someone making you feel afraid or unsafe? Denies 02/10/2023 Sex and Gender Information Value Date Recorded Sex Assigned at Not on file Legal Sex Male 6:00 PM FOREST FIRE FIGHTER Gender Identity Male 05/26/2022 12:46 PM CDT Sexual Orientation Not on file documented as of this encounter Plan of Treatment Not on file documented as of this encounter Visit Diagnoses Not on filedocumented in this encounter Care Teams Doweling Machine Operator Relationship Specialty Start Date End Date Hermilo Valiente DO PCP - General Internal Medicine 05/18/22 04/27/24 Max Al NP [address] [place] [address] PCP - General Nurse Practitioner 04/28/24 Hermilo Valiente DO Internal Medicine 05/18/22 Jennifer Denise MD Medical Oncologist/Candy Puller Medical Oncology 06/09/22 Fina Morgan MD Consulting Physician Medical Oncology 07/17/22 documented as of this encounter
--- OUTSIDE RECORDS SUMMARY | 2024-12-27 20:52 | XMS_ITS | Clinical Summary ---
Author Organization [facility] Address [address], [facility] [address] [place] [address] Phone Care Team Providers Care Athletic Equipment Custodian Name Role Phone Hermilo Valiente Primary Care Provider [phone] Jose Diallo MD Unavailable [phone] Allergies Active Allergy Reactions Criticality Noted Date [...] complete this topic Insurance [employer] Care Teams Athletic Equipment Custodian Relationship Specialty Start Date End Date Hermilo Valiente DO [address] [facility] [address] [place] [address] PCP - General Internal Medicine 04/27/22 Jose Diallo MD [address] [place] [phone] Consulting Physician Oncology 05/01/22
--- OUTSIDE RECORDS SUMMARY | 2024-12-27 20:52 | XMS_ITS | Encounter Summary ---
Author Organization [facility] Address [address] [place] [address] Care Team Providers Care Accounting Manager Name Role Phone Hermilo Valiente DO Primary Care Provider [phone] Hermilo Valiente DO Unavailable Jennifer Denise MD Unavailable [phone] Fina Morgan MD Unavailable [phone] Max Al NP Primary Care Provider [phone] Reason for Visit * Reason Onset Date Comments PMC Preprocedure 02/16/2024 Encounter Details Date Type Department Care Team (Late st Contact Info) Description 02/16/[address] [facility] [address] [facility] [address] [place] [address] Dereck Perrin MD [address] [place] [address] PMC Preprocedure Social History Tobacco Use Types Packs/Day Years [...] often do you attend chur ch or yazidism services? Never 01/18/2023 Do you belong to any clubs o r organizations such as temple groups, unions, fraternal or athletic groups, or [...] place to sleep or slept in a fdc (including now)? No 01/18/2023 Personal Safety Answer Date Recorded Have you ever been in or are you currently in a harmful physical or emotional relationship or is someone making you feel afraid or unsafe? Denies 02/10/2023 Sex and Gender Information Value Date Recorded Sex Assigned at Not on file Legal Sex Male 6:00 PM AB INITIO ETL DEVELOPER Gender Identity Male 05/26/2022 12:46 PM CDT Sexual Orientation Not on file documented as of this encounter Plan of Treatment Not on file documented as of this encounter Goals Goal Patient Goal Type Associated Problems [...] lifestyle strategies and compensatory methods as needed documented as of this encounter Visit Diagnoses Not on filedocumented in this encounter Care Teams Accounting Manager Relationship Specialty Start Date End Date Hermilo Valiente DO PCP - General Internal Medicine 05/18/22 04/27/24 Max Al NP [address] [place] [address] PCP - General Nurse Practitioner 04/28/24 Hermilo Valiente DO Internal Medicine 05/18/22 Jennifer Denise MD Medical Oncologist/Electrician Wiring Medical Oncology 06/09/22 Fina Morgan MD Consulting Physician Medical Oncology 07/17/22 documented as of this encounter
--- OUTSIDE RECORDS SUMMARY | 2024-12-27 20:52 | XMS_ITS | Patient Health Summary ---
Author Organization [facility] Address [address] [place] [address] Care Team Providers Care Raw Stock Machine Feeder Name Role Phone Hermilo Valiente DO Primary Care Provider [phone] Note from [facility],non-owned Affiliates and Associated Physician Practices is amultiple site organization consisting of ambulatory clinics and hospital sitesin [place], [place], [place] and [place]. This disclosure is being madepursuant to the Care Everywhere program and may not contain all information available regarding this patient. Last updated 18.[facility] Allergies * Anjel Inhibitors(Anaphylaxis) -High Criticality * [...] 05/21/2022) * PTT [facility](Performed 05/21/2022) * PT-INR [facility](Performed 05/21/2022) * COMPREHENSIVE METABOLIC PANEL(Performed 05/21/2022) * CBC W AUTO DIFFERENTIAL(Performed 05/21/2022) Results * (ABNORMAL) RENAL FUNCTION PANEL (05/22/2022 4:21 AM CDT) BUN 15 7 - 26 mg/dL 05/22/2022 4:53 AM CDT [facility] Creatinine 0.48(L) 0.71 - 1.16 mg/dL 05/22/2022 4:53 AM [facility] Sodium 135(L) 136 - 145 mmol/L 05/22/2022 4:53 AM [facility] Potassium 3.8 3.5 - 4.5 mmol/L 05/22/2022 4:53 AM [facility] Chloride 101 98 - 107 mmol/L 05/22/2022 4:53 AM [facility] CO2 22 22 - 29 mmol/L 05/22/2022 4:53 AM [facility] Glucose 117(H) 70 - 115 mg/dL 05/22/2022 4:53 AM [facility] Albumin 3.0(L) 3.4 - 5.0 g/dL 05/22/2022 4:53 AM [facility] Calcium 8.4 8.4 - 10.2 mg/dL 05/22/2022 4:53 AM [facility] Phosphorus 3.9 2.8 - 5.1 mg/dL 05/22/2022 4:53 AM [facility] Anion Gap 16 8 - 18 05/22/2022 4:53 AM [facility] BUN/Creatinine Ratio 31(H) 7 - 23 05/22/2022 4:53 AM [facility] Osmolality Calculated 282 270 - 300 mOsm/kg 05/22/2022 4:53 AM [facility] eGFR by CKD-EPI >90 >=90 mL/min/1.7 3 m2 05/22/2022 4:53 AM [facility] Blood BLOOD SPECIMEN / Unknown Venipuncture / Unknown 05/22/2022 4:21 AM CDT 05/22/2022 4:21 AM T Laury Brewer MD LAB - CHEMISTRY ORDE [facility] Organization Address City/State/ZIP Co de Phone Number [facility] [address] [place] [address], [facility] [phone] * MAGNESIUM BLOOD (05/22/2022 4:21 AM CDT) Magnesium 2.0 1.6 - 2.6 mg/dL 05/22/2022 4:53 AM [facility] Blood BLOOD SPECIMEN / Unknown Venipuncture / Unknown 05/22/2022 4:21 AM CDT 05/22/2022 4:21 AM CDT Laury Brewer MD LAB - CHEMISTRY [facility] [address] [place] [address], [facility] [phone] * (ABNORMAL) CBC W/O DIFFERENTIAL (05/22/2022 4:08 AM CDT) WBC 22.9(H) 3.5 - 10.5 10 3/uL 05/22/2022 4:13 AM [facility] RBC 5.20 4.30 - 5.70 10 6/uL 05/22/2022 4:13 AM [facility] Hemoglobin 16.2 12.0 - 17.6 g/dL 05/22/2022 4:13 AM [facility] Hematocrit 48.0 35.2 - 51.7 % 05/22/2022 4:13 AM [facility] MCV 92.3 80.7 - 98.3 fL 05/22/2022 4:13 AM [facility] MCH 31.2 26.7 - 34.0 pg 05/22/2022 4:13 AM [facility] MCHC 33.8 30.8 - 35.9 g/dL 05/22/2022 4:13 AM [facility] Platelet Count 252 150 - 400 10 3/uL 05/22/2022 4:13 AM [facility] RDW-SD 44.2 36.0 - 50.0 fL 05/22/2022 4:13 AM [facility] RDW-CV 13.1 11.2 - 14.8 % 05/22/2022 4:13 AM [facility] MPV 9.1(L) 9.4 - 12.9 fL 05/22/2022 4:13 AM [facility] nRBC Absolute 0.00 0 10 3/uL 05/22/2022 4:13 AM [facility] nRBC Auto 0.0 0 /100 WBC 05/22/2022 4:13 AM CDT [facility] Blood BLOOD SPECIMEN / Unknown Venipuncture / Unknown 05/22/2022 4:08 AM CDT 05/22/2022 4:08 AM CDT Laury Brewer MD LAB - HEMATOLOGY ORD ERABLES Performing Organization Address [facility]/ZIP Co de Phone Number [address] [address], [facility] [phone] * PTT [facility] (05/21/2022 3:22 PM CDT) APTT 23.9 23.0 - 38.4 Seconds 05/21/2022 3:56 PM CDT [facility] Comment:Suggested therapeuti c range for full dose I.V. unfractionated heparin therapy for venous thromboembolism is 71 to 109 seconds. Blood BLOOD SPECIMEN / Unknown Venipuncture / Unknown 05/21/2022 3:22 PM CDT 05/21/2022 3:35 PM CDT Lucy Alanis MD LAB - COAGULATION OR DERABLES Performing Organization Address [facility] Co de Phone Number [address] [address], [facility] [phone] * PT-INR [facility] (05/21/2022 3:22 PM CDT) PT 13.8 12.1 - 14.8 Seconds 05/21/2022 3:55 PM CDT [facility] INR 1.1 See Comment 05/21/2022 3:55 PM CDT [facility] Comment:The suggested therap eutic range for standard coumadin (warfarin) therapy is an INR of 2.0-3.0. For high-risk patients (Mechanical Mitral Valve Prosthesis, etc.), the suggested prophylactic therapeutic range is an INR of 2.5-3.5. Blood BLOOD SPECIMEN / Unknown Venipuncture / Unknown 05/21/2022 3:22 PM CDT 05/21/2022 3:35 PM CDT Lucy Alanis MD LAB - COAGULATION OR DERABLES [facility] [address] [place] [address], [facility] [phone] * (ABNORMAL) DIFFERENTIAL MANUAL (05/21/2022 3:22 PM CDT) WBC (corrected for NRBC) 25.9 10 3/uL 05/21/2022 4:36 PM [facility] Total Cell Count 100 05/21/2022 4:36 PM [facility] Neutrophils Absolute Manual 19.17(H) 1.60 - 7.00 10 3/uL 05/21/2022 4:36 PM [facility] Comment:(BANDS+SEGS) x WBC = NEUT # (ANC) Lymphocyte Absolute Manual 1.81 1.10 - 3.90 10 3/uL 05/21/2022 4:36 PM [facility] Monocytes Absolute Manual 1.81(H) 0.26 - 1.07 10 3/uL 05/21/2022 4:36 PM [facility] Eosinophils Absolute Manual 3.11(H) 0.00 - 0.47 10 3/uL 05/21/2022 4:36 PM [facility] Neutrophil % Manual 74(H) 35 - 70 % 05/21/2022 4:36 PM [facility] Lymphocyte % Manual 7(L) 20 - 43 % 05/21/2022 4:36 PM [facility] Monocytes % Manual 7 5 - 13 % 05/21/2022 4:36 PM [facility] Eosinophils % Manual 12(H) 0 - 6 % 05/21/2022 4:36 PM [facility] Platelet Estimate Adequate Adequate 05/21/2022 4:36 PM [facility] RBC Morphology Normal 05/21/2022 4:36 PM [facility] Blood BLOOD SPECIMEN / Unknown Venipuncture / Unknown 05/21/2022 3:22 PM CDT 05/21/2022 3:35 PM CDT Lucy Alanis MD LAB - HEMATOLOGY ORD ERABLES [facility] [address] [place] [address], [facility] [phone] * (ABNORMAL) CBC W AUTO DIFFERENTIAL (05/21/2022 3:22 PM CDT) WBC 25.9(H) 3.5 - 10.5 10 3/uL 05/21/2022 3:42 PM [facility] RBC 5.52 4.30 - 5.70 10 6/uL 05/21/2022 3:42 PM [facility] Hemoglobin 17.0 12.0 - 17.6 g/dL 05/21/2022 3:42 PM [facility] Hematocrit 49.7 35.2 - 51.7 % 05/21/2022 3:42 PM [facility] MCV 90.0 80.7 - 98.3 fL 05/21/2022 3:42 PM [facility] MCH 30.8 26.7 - 34.0 pg 05/21/2022 3:42 PM [facility] MCHC 34.2 30.8 - 35.9 g/dL 05/21/2022 3:42 PM [facility] Platelet Count 263 150 - 400 10 3/uL 05/21/2022 3:42 PM [facility] RDW-SD 42.7 36.0 - 50.0 fL 05/21/2022 3:42 PM [facility] RDW-CV 12.9 11.2 - 14.8 % 05/21/2022 3:42 PM [facility] MPV 9.0(L) 9.4 - 12.9 fL 05/21/2022 3:42 PM [facility] nRBC Absolute 0.00 0 10 3/uL 05/21/2022 3:42 PM [facility] nRBC Auto 0.0 0 /100 WBC 05/21/2022 3:42 PM [facility] Blood BLOOD SPECIMEN / Unknown Venipuncture / Unknown 05/21/2022 3:22 PM CDT 05/21/2022 3:35 PM CDT Lucy Alanis MD LAB - HEMATOLOGY ORD ERABLES [facility] [address] [place] [address], [facility] [phone] * (ABNORMAL) COMPREHENSIVE METABOLIC PANEL (05/21/2022 3:22 PM CDT) BUN 16 7 - 26 mg/dL 05/21/2022 4:00 PM [facility] Creatinine 0.51(L) 0.71 - 1.16 mg/dL 05/21/2022 4:00 PM [facility] Sodium 132(L) 136 - 145 mmol/L 05/21/2022 4:00 PM [facility] Potassium 4.4 3.5 - 4.5 mmol/L 05/21/2022 4:00 PM [facility] Chloride 98 98 - 107 mmol/L 05/21/2022 4:00 PM [facility] CO2 25 22 - 29 mmol/L 05/21/2022 4:00 PM [facility] Glucose 103 70 - 115 mg/dL 05/21/2022 4:00 PM [facility] Calcium 9.0 8.4 - 10.2 mg/dL 05/21/2022 4:00 PM [facility] Protein Total 5.9(L) 6.0 - 8.3 g/dL 05/21/2022 4:00 PM [facility] Albumin 3.6 3.4 - 5.0 g/dL 05/21/2022 4:00 PM [facility] Bilirubin Total 0.6 0.2 - 1.2 mg/dL 05/21/2022 4:00 PM [facility] Alkaline Phosphatase 59 40 - 150 U/L 05/21/2022 4:00 PM [facility] ALT 73(H) 5 - 55 U/L 05/21/2022 4:00 PM [facility] AST 15 5 - 34 U/L 05/21/2022 4:00 PM [facility] Anion Gap 13 8 - 18 05/21/2022 4:00 PM T [facility] BUN/Creatinine Ratio 31(H) 7 - 23 05/21/2022 4:00 PM T [facility] Osmolality Calculated 275 270 - 300 mOsm/kg 05/21/2022 4:00 PM [facility] Albumin/Globulin Ratio 1.6 1.1 - 2.3 05/21/2022 4:00 PM [facility] eGFR by CKD-EPI >90 >=90 mL/min/1.7 3 m2 05/21/2022 4:00 PM [facility] Blood BLOOD SPECIMEN / Unknown Venipuncture / Unknown 05/21/2022 3:22 PM CDT 05/21/2022 3:35 PM CDT Lucy Alanis MD LAB - CHEMISTRY [facility] Organization Address City/State/ZIP Co de Phone Number [facility] [address] [place] [address], [facility] [phone] Care Teams Raw Stock Machine Feeder Relationship Specialty Start Date End Date Hermilo Valiente DO [address] [place] [address] PCP - General Internal Medicine 05/21/22
--- OUTSIDE RECORDS SUMMARY | 2024-12-27 20:52 | XMS_ITS | Encounter Summary ---
Author Organization [facility] Address [address] [place] [address] Phone Care Team Providers Care Jewelry Mechanic Name Role Phone Hermilo Valiente DO Unavailable Jennifer Denise MD Unavailable [phone] Fina Morgan MD Unavailable [phone] Max Al NP Primary Care Provider + [phone] Encounter Details Date Type Department Care Team (Late st Contact Info) Description 10/19/2024 Telephone [facility] Oncology [facility] Floor [address] [place] [address] Jacki Lee NP [address] [place] [address] Social History Tobacco Use Types Packs/Day Years [...] 01/18/2023 How often do you attend chur or orthodoxy services? Never 01/18/2023 Do you belong to any clubs o r organizations such as confucianist groups, unions, fraternal or athletic groups, or [...] place to sleep or slept in a group home (including now)? No 01/18/2023 Personal Safety Answer Date Recorded Have you ever been in or are you currently in a harmful physical or emotional relationship or is someone making you feel afraid or unsafe? 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 Author CCM Chronic Pain Care Plan Chronic Care Management No change(02/17 10:45 AM CDT) Ailyn Chavez RN Note: Problem: Chronic Pain Goals: 1. Minimize further functional decline 2. Maximize quality of life 3. Control pain Strategies: - Activity/exercise program recommendation - Conservative stepwise pain medicine strategy with multi-disciplinary approach - Recommend healthy lifestyle strategies and compensatory methods as needed documented as of this encounter Visit Diagnoses Diagnosis Lumbar disc disease with radiculopathy documented in this encounter Discontinued Medications Medication Sig Discontinue Reason Start Date End Da te DULoxetine DR (CYMBALTA) 30 mg capsuleIndications:Lumbar disc disease with radiculopathy TAKE 1 CAPSULE BY MOUTH EVERY DAY Reorder 09/18/2024 10/19/2024 documented as of this encounter Care Teams Jewelry Mechanic Relationship Specialty Start Date End Date Max Al NP [address] [place] [address] PCP - General Nurse Practitioner 04/28/24 Hermilo Valiente DO Internal Medicine 05/18/22 Jennifer Denise MD Medical Oncologist/Lye Peel Operator Medical Oncology 06/09/22 Fina Morgan MD Consulting Physician Medical Oncology 07/17/22 documented as of this encounter
--- OUTSIDE RECORDS SUMMARY | 2024-12-27 20:52 | XMS_ITS | Referral Summary ---
Author Organization [facility] Address [address] [place] [address] Care Team Providers Care Senior Licensing Manager Name Role Phone Hermilo Valiente DO Unavailable Jennifer Denise MD Unavailable [phone] Fina Morgan MD Unavailable [phone] Max Al NP Primary Care Provider [phone] Encounters Date Type Department Care Team Description 11/07/2024 11:05 AM CLAIM AGENT Lab [facility] Advanced [facility] ([facility]) [address] [place] [phone] 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); History of removal of Port-a-Cath 11/07/2024 10:50 AM CLAIM AGENT Lab [facility] Advanced [facility] ([facility]) [address] [place] [phone] 11/07/2024 10:49 AM CLAIM AGENT - 11/07/2024 11:59 PM CLAIM AGENT Hospital Encounter [facility] Radiology [facility] [place] [address] [place] [address] 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); History of removal of Port-a-Cath Discharge Disposition: Discharge to home or self care 11/02/2024 Telephone [facility] Radiology [address] [place] [address] Destiny Brewer, DARRELL 10/27/2024 Documentation [facility] Oncology [address] [place] [phone] [place], [facility] 10/27/2024 Documentation [facility] Oncology [address] [place] [phone] [place], [facility] 10/27/2024 Documentation [facility] Oncology [address] [place] [phone] [place], [facility] 10/27/2024 Documentation [facility] Oncology [address] [place] [phone] [place], [facility] 10/27/2024 Orders Only [facility] Oncology [address] [place] [phone] Rosalina James RN 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) (Primary Dx); History of removal of Port-a-Cath 10/19/2024 Documentation [facility] Oncology [address] [place] [phone] Griselda Robles, A Appointment 10/19/2024 Telephone [facility] Oncology [address] [place] [phone] Jacki Lee NP 10/19/2024 11:15 AM CLAIM AGENT Clinical Support [facility] - Lab Collection [address] [place] [phone] 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) 10/19/2024 1:45 PM CLAIM AGENT Office Visit [facility] Oncology [address] [place] [phone] Jacki Lee, SABRINA 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) (Primary Dx) 10/19/2024 12:30 PM CLAIM AGENT Lab [facility] Oncology Lab [address] [place] [phone] 10/19/2024 6:13 AM CLAIM AGENT - 10/19/2024 11:59 PM CLAIM AGENT Hospital Encounter [facility] - PET [address] [place] [address] Discharge Disposition: Discharge to home or self care 10/19/2024 6:12 AM CLAIM AGENT - 10/19/2024 11:59 PM CLAIM AGENT Hospital Encounter [facility] - PET [address] [place] [address] 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) Discharge Disposition: Discharge to home or self care 10/19/2024 6:12 AM CLAIM AGENT - 10/19/2024 11:59 PM CLAIM AGENT Hospital Encounter [facility] - MRI [address] [place] [address] 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) Discharge Disposition: Discharge to home or self care from Last 3 Months Allergies Active Allergy Reactions Criticality Noted Date [...] PET scan) 5 tablet 4 Active rizatriptan HYDRATOR (MAXALT-HYDRATOR) 10 mg disintegrating tablet TAKE 1 TABLET [...] Overview Diagnosis Anaplastic large cell lymphoma with KEYBOARDING TEACHER involvement [address] Treatment Plan BEAM Clinical Trial Reason for Admission BEAM AUTO 01/22/23 Transplant/IEC Planning BMT/IEC Plan D0 01/22/23 HLA typing/IDMs Insurance Approvals/Issues Discharge Planning Anticipated Discharge Date 02/04 Patient Education Completed Discharge teaching completed by Sapna 02/03 Issue to be Resolved Before Discharge Discharge Disposition Requests Sent to Case Management and/or Medical Assistants Post-Discharge Follow-Up Living Situation/Distance from [place] [address] [address] [facility] (25 MIN) Caregiver Lab/Transfusion Frequency Lab/plt1 02/05, [...] pain. Assessment & Plan (11/10/2023 7:09 PM CLAIM AGENT): Does have some ongoing axial pain but [...] duloxetine. Assessment & Plan (11/10/2023 7:11 PM CLAIM AGENT): Benefit from LESI and duloxetine. Will increase duloxetine to 60mg/day. If he finds SE are worse or not worth the benefit he will continue at 30mg/day. Repeat LESI prn Assessment & Plan (08/30/2023 2:13 PM CLAIM AGENT): Though central pain is likely a component [...] anaplastic large cell lymphoma diagnosed 05/30/2022 with KEYBOARDING TEACHER involvement. He has completed 6 cycles of [...] thrombocytopenia. Assessment & Plan (08/27/2022 7:45 PM CLAIM AGENT): Dx 06/2022 of LLE -cont eliquis Depression 08/27/2022 Assessment & Plan (01/15/2023 12:57 PM CDT): -continue home escitalopram 10 Assessment & Plan (08/27/2022 7:46 PM CLAIM AGENT): Cont lexapro Tear of left glenoid labrum [...] normotension Assessment & Plan (08/27/2022 7:46 PM CLAIM AGENT): Cont losartan (for candesartan per formulary) and [...] 2021 Assessment & Plan (08/27/2022 7:44 PM CLAIM AGENT): Admitted for C4 HD-MTX dose reduced given [...] 06/08/2022 Assessment & Plan (08/27/2022 7:43 PM CLAIM AGENT): Dx 05/2022 with adrenal biopsy c/w ALK [...] Problem Noted Date Diagnosed Date Resolved Date KEYBOARDING TEACHER lymphoma 07/30/2022 08/27/2022 Immunizations Immunization Administration Dates Next Due DTaP 02/03/2024,11/04/2023 Hep B, Dialysis 05/11/2024,02/03/2024,11/04/2023 Hib (PRP-T) 05/11/2024,02/03/2024,11/04/2023 IPV 08/10/2024,02/03/2024,11/04/2023 Pneumococcal Conjugate Pcv20 08/10/2024,05/11/20 24,02/03/2024,11/04/2023 Tdap 05/11/2024,10/18/2020 ZOSTER Recombinant 02/03/2024,11/04/2023 Social History Tobacco Use Types Packs/Day Years [...] often do you attend chur ch or congregation services? Never 01/18/2023 Do you belong to any clubs o r organizations such as pentecostal groups, unions, fraternal or athletic groups, or [...] place to sleep or slept in a long term (including now)? No 01/18/2023 Personal Safety Answer Date Recorded Have you ever been in or are you currently in a harmful physical or emotional relationship or is someone making you feel afraid or unsafe? Denies 11/07/2024 Sex and Gender Information Value Date Recorded Sex Assigned at Not on file Legal Sex Male 6:00 PM CLAIM AGENT Gender Identity Male 05/26/2022 12:46 PM CDT Sexual Orientation Not on file Last Filed Vital Signs Vital Sign Reading Time Taken Comments Blood Pressure 131/98 11/07/2024 2:05 PM CLAIM AGENT Pulse 75 11/07/2024 2:05 PM CLAIM AGENT Temperature 36 C (96.8 F) 11/07/2024 11:00 AM CLAIM AGENT Respiratory Rate 10 11/07/2024 11:00 AM CLAIM AGENT Oxygen Saturation 94% 11/07/2024 2:05 PM CLAIM AGENT Inhaled Oxygen Concentration - - Weight 109.3 kg (241 lb) 11/07/2024 11:00 AM CLAIM AGENT Height 188 cm (6' 2 ) 05/11/2024 6:53 AM CDT Body Mass Index 30.94 05/11/2024 6:53 AM CDT Plan of Treatment Not on file Goals Goal Patient Goal Type Associated Problems [...] as needed Medical Devices Implanted Type Area Roll Threader Operator Device Identifier Shelf Expiration Date Model / Serial / Lot [employer] Xcela Power Port 8fr [id number] - [id number] Implanted:Qty: 1 on 07/16/2022 at [facility] [employer] 04/05/2027 [id number] / / [id number] Procedures Procedure Name Priority Date/Time Associated Diagnosis Comments PORT REMOVAL Schedule NABILA, Read NABILA (Appt Today, Awaiting Results) 11/07/2024 2:01 PM CLAIM AGENT 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) History of removal of Port-a-Cath DIFFERENTIAL AUTO Routine 11/07/2024 10: 27 AM CLAIM AGENT 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) History of removal of Port-a-Cath CBC WITH AUTO DIFFERENTIAL Routine 11/07/2024 10:27 AM CLAIM AGENT 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) History of removal of Port-a-Cath PROTIME-INR Routine 11/07/2024 10:27 AM CLAIM AGENT 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) History of removal of Port-a-Cath EGFR Routine 10/19/2024 10:56 AM CLAIM AGENT 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) DIFFERENTIAL AUTO Routine 10/19/2024 10: 56 AM CLAIM AGENT 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) LACTATE DEHYDROGENASE Routine 10/19/2024 10:56 AM CLAIM AGENT 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) COMPREHENSIVE METABOLIC PANEL Routine 10/19/2024 10:56 AM CLAIM AGENT 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) CBC WITH AUTO DIFFERENTIAL Routine 10/19/2024 10:56 AM CLAIM AGENT 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) PET/CT FDG SKULL TO THIGH Schedule NABILA, Read NABILA (Appt Today, Awaiting Results) 10/19/2024 10:06 AM CLAIM AGENT 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 Electronically signed by: Farzana Ignacio PA-C Narrative 11/07/2024 2:18 PM CLAIM AGENT EXAMINATION: PORT REMOVAL HISTORY: This is a [...] was obtained. Prior to beginning the procedure, Lyons Protocol was used to confirm the patient's [...] was obtained. Prior to beginning the procedure, Lyons Protocol was used to confirm the patient's [...] removal. Electronically signed by: Farzana Ignacio PA-C Jennifer Denise MD IM IR PROCEDURES Final Resul t * Differential, auto (11/07/2024 10:27 AM CLAIM AGENT) Neutrophil abs 3.8 1.5 - 6.5 K/cumm Imm gran abs 0.0 0.0 - 0.1 K/cumm [facility] Lymphocyte abs 1.5 0.8 - 3.3 K/cumm [facility] Monocyte abs 0.5 0.2 - 0.8 K/cumm [facility] Eosinophil abs 0.0 0.0 - 0.5 K/cumm [facility] Basophil abs 0.0 0.0 - 0.1 K/cumm [facility] Neutrophil pct 64.7 % [facility] Comment: Interpretive Data Percent cell count reference ranges are not reported, since discordance with absolute values may lead to misinterpretation of CBC data. Current Interpretive Data was last revised on 2018. Imm gran pct 0.2 % [facility] Comment: Interpretive Data Percent cell count reference ranges are not reported, since discordance with absolute values may lead to misinterpretation of CBC data. Current Interpretive Data was last revised on 2018. Lymphocyte pct 25.9 % [facility] Comment: Interpretive Data Percent cell count reference ranges are not reported, since discordance with absolute values may lead to misinterpretation of CBC data. Current Interpretive Data was last revised on 2018. Monocyte pct 8.2 % [facility] Comment: Interpretive Data Percent cell count reference ranges are not reported, since discordance with absolute values may lead to misinterpretation of CBC data. Current Interpretive Data was last revised on 2018. Eosinophil pct 0.7 % [facility] Comment: Interpretive Data Percent cell count reference ranges are not reported, since discordance with absolute values may lead to misinterpretation of CBC data. Current Interpretive Data was last revised on 2018. Basophil pct 0.3 % [facility] Comment: Interpretive Data Percent cell count reference ranges are not reported, since discordance with absolute values may lead to misinterpretation of CBC data. Current Interpretive Data was last revised on 2018. Blood 11/07/2024 10:2 7 AM CLAIM AGENT 11/07/2024 10:55 AM CLAIM AGENT us Jennifer Denise MD LAB BLOOD ORDERABLES Final Re sult [facility] Department [place] [address] * CBC with auto differential (11/07/2024 10:27 AM CLAIM AGENT) WBC 5.9 3.8 - 9.9 K/cumm Hgb 16.5 13.0 - 17.5 g/dL [facility] Hct 47.7 38.9 - 50.3 % [facility] Plt 176 150 - 400 K/cumm [facility] MPV 9.9 9.1 - 12.[address] [facility] RBC 5.23 4.30 - 5.80 M/cumm [facility] MCV 91.2 81.3 - 96.[address] [facility] MCH 31.5 27.1 - 33.[address] [facility] MCHC 34.6 32.3 - 35.7 g/dL [facility] RDW CV 12.7 11.1 - 14.9 % [facility] RDW SD 42.4 35.7 - 48.[address] [facility] NRBC abs 0.00 0.00 - 0.01 K/cumm [facility] Blood 11/07/2024 10:2 7 AM CLAIM AGENT 11/07/2024 10:55 AM CLAIM AGENT Jennifer Denise MD LAB BLOOD ORDERABLES Final Re sult Performing Organization Address [facility] de Phone Number [facility] [place] [address] * (ABNORMAL) Protime-INR (11/07/2024 10:27 AM CLAIM AGENT) PT 13.5(H) 9.7 - 13.0 sec INR 1.24(H) 0.90 - 1.[address] [facility] Comment: Interpretive data Oral anticoagulant therapeutic ranges: Venous thromboembolism prophylaxis or treatment: 2.0-3.0 CARDIOLOGY Standard range: 2.0-3.0 High-intensity range: 2.5-3.5 Refer to indication-specific guidelines for appropriate target ranges for prosthetic heart valve replacement. Current interpretive data was last revised on 2019. Blood 11/07/2024 10:2 7 AM CLAIM AGENT 11/07/2024 10:55 AM CLAIM AGENT Jennifer Denise MD LAB BLOOD ORDERABLES Final Re sult Performing Organization Address [facility] Co de Phone Number [facility] Department [place] [address] * eGFR (10/19/2024 10:56 AM CLAIM AGENT) eGFR >90 >=60 mL/min/1. 73 m2 Comment: [...] reviewed 2021. Blood 10/19/2024 10:5 6 AM CLAIM AGENT 10/19/2024 11:05 AM CLAIM AGENT us Jennifer Denise MD LAB BLOOD ORDERABLES Final Re sult [facility] [place] [address] * Differential, auto (10/19/2024 10:56 AM CLAIM AGENT) Neutrophil abs 3.5 1.5 - 6.5 K/cumm Comment:Testing performed by : [facility], [address] [place] [phone] Lymphocyte abs 1.5 0.8 - 3.3 K/cumm [facility] Comment:Testing performed by : [facility], [address] [place] [phone] Monocyte abs 0.3 0.2 - 0.8 K/cumm [facility] Comment:Testing performed by : [facility], [address] [place] [phone] Eosinophil abs 0.1 0.0 - 0.5 K/cumm [facility] Comment:Testing performed by : [facility], [address] [place] [phone] Basophil abs 0.0 0.0 - 0.1 K/cumm [facility] Comment:Testing performed by : [facility], [address] [place] [phone] Neutrophil pct 64.9 % [facility] Comment: Interpretive Data Percent cell count reference ranges are not reported, since discordance with absolute values may lead to misinterpretation of CBC data. Current Interpretive Data was last revised on 2018. Testing performed by: [facility], [address] [place] [phone] Lymphocyte pct 28.5 % [facility] Comment: Interpretive Data Percent cell count reference ranges are not reported, since discordance with absolute values may lead to misinterpretation of CBC data. Current Interpretive Data was last revised on 2018. Testing performed by: [facility], [address] [place] [phone] Monocyte pct 5.1 % [facility] Comment: Interpretive Data Percent cell count reference ranges are not reported, since discordance with absolute values may lead to misinterpretation of CBC data. Current Interpretive Data was last revised on 2018. Testing performed by: [facility], [address] [place] [phone] Eosinophil pct 1.0 % [facility] Comment: Interpretive Data Percent cell count reference ranges are not reported, since discordance with absolute values may lead to misinterpretation of CBC data. Current Interpretive Data was last revised on 2018. Testing performed by: [facility], [address] [place] [phone] Basophil pct 0.5 % [facility] Comment: Interpretive Data Percent cell count reference ranges are not reported, since discordance with absolute values may lead to misinterpretation of CBC data. Current Interpretive Data was last revised on 2018. Testing performed by: [facility], [address] [place] [phone] Blood 10/19/2024 10:5 6 AM CLAIM AGENT 10/19/2024 11:02 AM CLAIM AGENT us Jennifer Denise MD LAB BLOOD ORDERABLES Final Re sult [facility] Department [place] [address] * CBC with auto differential (10/19/2024 10:56 AM CLAIM AGENT) WBC 5.4 3.8 - 9.9 K/cumm Comment:Testing performed by : [facility], [address] [place] [address] Hgb 16.4 13.0 - 17.5 g/dL [facility] Comment:Testing performed by : [facility], [address] [place] [address] Hct 49.4 38.9 - 50.3 % [facility] Comment:Testing performed by : [facility], [address] [place] [address] Plt 186 150 - 400 K/cumm [facility] Comment:Testing performed by : [facility], [address] [place] [address] MPV 7.9 6.8 - 10.4 fL [facility] Comment:Testing performed by : [facility], [address] [place] [address] RBC 5.25 4.30 - 5.80 M/cumm [facility] Comment:Testing performed by : [facility], [address] [place] [address] MCV 94.0 81.3 - 96.4 fL [facility] Comment:Testing performed by : [facility], [address] [place] [address] MCH 31.2 27.1 - 33.3 pg [facility] Comment:Testing performed by : [facility], [address] [place] [address] MCHC 33.2 32.3 - 35.7 g/dL [facility] Comment:Testing performed by : [facility], [address] [place] [address] RDW CV 13.6 11.1 - 14.9 % [facility] Comment:Testing performed by : [facility], [address] [place] [phone] NRBC abs 0.00 0.00 - 0.01 K/cumm [facility] Comment:Testing performed by : [facility], [address] [place] [phone] Blood 10/19/2024 10:5 6 AM CLAIM AGENT 10/19/2024 11:02 AM CLAIM AGENT Jennifer Denise MD LAB BLOOD ORDERABLES Final Re sult Performing Organization Address [facility] Co de Phone Number [facility] [place] [address] * Lactate dehydrogenase (LD) (10/19/2024 10:56 AM CLAIM AGENT) Pathologist [facility] Lactate dehydrogenase (LDH) 177 100 - 250 Units/L Blood 10/19/2024 10:5 6 AM CLAIM AGENT 10/19/2024 11:05 AM CLAIM AGENT Jennifer Denise MD LAB BLOOD ORDERABLES Final Re sult Performing Organization Address [facility] de Phone Number [facility] [place] [place] [address] * (ABNORMAL) Comprehensive metabolic panel (10/19/2024 10:56 AM CLAIM AGENT) Sodium 138 135 - 145 mmol/L Potassium, pl 3.8 3.3 - 4.9 mmol/L [facility] Chloride 104 97 - 110 mmol/L [facility] CO2 30 22 - 32 mmol/L [facility] Anion gap 4 2 - 15 mmol/L [facility] BUN 10 6 - 25 mg/dL [facility] Creatinine 0.65(L) 0.80 - 1.30 mg/dL [facility] Glucose 151 70 - 199 mg/dL [facility] Comment: Interpretive Data Fasting glucose >/= 126 [...] 2022. Calcium 8.9 8.5 - 10.3 mg/dL [facility] Bilirubin, total 0.4 0.1 - 1.2 mg/dL [facility] Protein, pl 6.4(L) 6.5 - 8.5 g/dL [facility] Albumin 4.2 3.5 - 5.0 g/dL [facility] Alk phos 110 40 - 130 Units/L [facility] ALT 64(H) 7 - 55 Units/L [facility] AST 34 10 - 50 Units/L [facility] Blood 10/19/2024 10:5 6 AM CLAIM AGENT 10/19/2024 11:05 AM CLAIM AGENT us Jennifer Denise MD LAB BLOOD ORDERABLES Final Re sult [facility] [place] [address] * PET/CT FDG Skull to Thigh (10/19/2024 10:06 AM CLAIM AGENT) Anatomical Region Laterality Modality N/A Positron Emissio n Tomography (PET) 10/19/2024 10:4 2 AM CLAIM AGENT Impressions 10/19/2024 12:04 PM CLAIM AGENT 1. Ongoing complete metabolic response. 2. New, [...] Joseph Webber M.D. Narrative 10/19/2024 12:04 PM CLAIM AGENT EXAMINATION: TUMOR FDG-PET/CT IMAGING DATE OF STUDY: 10/19/2024 SCANNER: [employer] (SQ1). This is a high-resolution scanner, which [...] obtained. The study was interpreted on the [employer] workstation. The mean liver SUV (reported for quality assurance monitor chassis purposes) is 2.8. The total scanned area [...] FDG-PET/CT IMAGING DATE OF STUDY: 10/19/2024 SCANNER: [facility] [employer] (SQ1). This is a high-resolution scanner, which [...] obtained. The study was interpreted on the [employer] workstation. The mean liver SUV (reported for quality assurance monitor chassis purposes) is 2.8. The total scanned area [...] it. Electronically signed by: Joseph Webber M.D. Jennifer Denise MD IMG PET PROCEDURES Final Resu lt * MRI Brain W WO Contrast (10/19/2024 7:22 AM CLAIM AGENT) Anatomical Region Laterality Modality Head and Neck N/A Magnetic Resonan ce 10/19/2024 8:41 AM CLAIM AGENT Impressions 10/19/2024 9:08 AM CLAIM AGENT Unchanged focus of FLAIR signal hyperintensity within the right cerebral peduncle and right toy consistent with treated disease. No evidence for recurrent intracranial disease. Dictated by: Chester Chamorro MD PHD The radiology attending physician has personally reviewed this study, and had reviewed and/or edited this written report and agrees with it. Electronically signed by: Leigh Chinchilla M.D. Narrative 10/19/2024 9:08 AM CLAIM AGENT EXAMINATION: Magnetic resonance imaging (MRI) of the [...] it. Electronically signed by: Leigh Chinchilla M.D. Jennifer Denise MD IMG MRI PROCEDURES Final Resu lt * Hepatitis panel, acute (06/05/2022 2:52 AM CDT) Hep A IgM Nonreactive Nonreactive [facility] Comment: Interpretive Data: If Hep A IgM Ab is reported as Equivocal, a new sample should be drawn in two weeks for testing. Current interpretive data was last revised on 20. Hep B core IgM Nonreactive Nonreactive [facility] Comment: Interpretive Data If HepB Core IgM Ab is reported as Equivocal, a new sample should be drawn in two weeks for testing. Current interpretive data was last revised on 20. Hep C Ab Nonreactive Nonreactive [facility] Comment:Antibodies to HCV no t detected. Does NOT exclude the possibility of recent exposure to HCV. HepBsAg Nonreactive Nonreactive [facility] Blood 06/05/2022 2:52 AM CDT 06/05/2022 3:00 AM CDT Elenita Hinojosa TELEGRAPHER AGENT LAB MICROBIOLOGY - GENERA L ORDERABLES Edited Result - Final [facility] Department [place] [address] from Last 3 Months or Most Recently Relevant to Health Maintenance Insurance [facility] GENERIC COPAY ASSIST UMR [employer] Advance Directives For more information, please contact: [phone] * Full Code (Latest Code Status on [...] 2:05 PM 09/27/2022 1:37 PM Care Teams Senior Licensing Manager Relationship Specialty Start Date End Date Max Al NP [address] [facility] 1 [facility] [address] [place] [address] PCP - General Nurse Practitioner 04/28/24 Hermilo Valiente DO Internal Medicine 05/18/22 Jennifer Denise MD Medical Oncologist/Computer Sciences Professor Medical Oncology 06/09/22 Fina Morgan MD Consulting Physician Medical Oncology 07/17/22
--- OUTSIDE RECORDS SUMMARY | 2024-12-27 20:52 | XMS_ITS | Referral Summary ---
Author Organization [facility] Address [address] [place] [address] Care Team Providers Care Chiller Technician Name Role Phone Hermilo Valiente DO Primary Care Provider [phone] Source Comments [facility],non-owned Affiliates and Associated Physician Practices is amultiple site organization consisting of ambulatory clinics and hospital sitesin [place], [place], [place] and [place]. This disclosure is being madepursuant to the Care Everywhere program and may not contain all information available regarding this patient. Last updated 18.[facility] Allergies Active Allergy Reactions Criticality Noted Date [...] 6:26 PM 05/21/2022 6:42 PM Care Teams Chiller Technician Relationship Specialty Start Date End Date Hermilo Valiente DO [address] [place] [address] PCP - General Internal Medicine 05/21/22
--- OUTSIDE RECORDS SUMMARY | 2024-12-27 20:52 | XMS_ITS | Clinical Summary ---
Author Organization [facility] Address [address] [place] [address] Care Team Providers Care Scrap Wheeler Name Role Phone Hermilo Valiente DO Primary Care Provider [phone] Source Comments [facility],non-owned Affiliates and Associated Physician Practices is amultiple site organization consisting of ambulatory clinics and hospital sitesin [place], [place], [place] and [place]. This disclosure is being madepursuant to the Care Everywhere program and may not contain all information available regarding this patient. Last updated 18.[facility] Allergies Active Allergy Reactions Criticality Noted Date [...] 6:26 PM 05/21/2022 6:42 PM Care Teams Scrap Wheeler Relationship Specialty Start Date End Date Hermilo Valiente DO [address] [place] [address] PCP - General Internal Medicine 05/21/22
[2024-12-27 21:00] VITALS: BP 131/82; PULSE 89; RESP 18; O2SAT 100
== END 2024-12-27 21:02 | disposition home or self-care (01) ==
LOC: ANHED 20:49
PROVIDERS: Emergency Provider Student in an Organized Health Care Education/Training Program; PCP Internal Medicine
DX: T16.2XXA Foreign body in left ear, initial encounter (principal); C84.40 Peripheral T-cell lymphoma, not elsewhere classified, unspecified site; I10 Essential (primary) hypertension; E78.2 Mixed hyperlipidemia; K21.9 Gastro-esophageal reflux disease without esophagitis; Z87.891 Personal history of nicotine dependence; W44.G1XA Audio device entering into or through a natural orifice, initial encounter
CPT/HCPCS: 99281

== ENCOUNTER 2025-09-17 14:57 | Emergency (ER) | payer OTHER, SELFPAY ==
--- NOTE | ~2025-09-17 | XR_ITS ---
[XR ribs LT 2V w CXR 2V ] INDICATION: Left rib pain TECHNIQUE: Frontal projection of the upper left ribs, frontal projection of the lower left ribs, oblique projection of all the left ribs, frontal inspiratory chest x-ray for interpretation. FINDINGS: There are no displaced rib fractures identified. There are no soft tissue abnormality seen. The lungs are clear. IMPRESSION: 1:No acute displaced rib fractures. Reviewed, dictated and finalized at location I. PRODUCER
[2025-09-17 15:08] VITALS: BP 150/89; PULSE 92; RESP 16; TEMP 36.5; O2SAT 100
--- OUTSIDE RECORDS SUMMARY | 2025-09-17 15:44 | XMS_ITS | Clinical Summary ---
Author Organization [facility] Address [address] [place] [address] Care Team Providers Care Waste Management Specialist Name Role Phone Hermilo Valiente DO Primary Care Provider [phone] Allergies Active Allergy Reactions Criticality Noted Date Comments Anjel Inhibitors Anaphylaxis High 02/20/2022 Ibuprofen Anaphylaxis High 02/20/2022 Medications fexofenadine (VASU) 180 MG tablet Take 180 mg by mouth daily. Active aspirin 81 MG chewable tablet Chew 1 tablet (81 mg total) by mouth daily. Please stop this medication on 04/30. 30 tablet 2 Active Additional Information Patient not taking.Reported on 06/16/2025 levETIRAcetam 500 MG tablet Take 1 tablet (500 mg total) by mouth 2 (two) times daily. 60 tablet 2 Active Additional Information Patient not taking.Reported on 06/16/2025 dilTIAZem CD 300 MG 24 hr capsule Take 1 capsule (300 mg total) by mouth daily. 30 capsule 2 Active Additional Information Patient not taking.Reported on 06/16/2025 atorvastatin 40 MG tablet Take 1 tablet (40 mg total) by mouth nightly at bedtime. 30 tablet 2 Active pantoprazole EC (PROTONIX) 40 MG tablet Take 1 tablet (40 mg total) by mouth daily. 30 tablet 2 Active Additional Information Patient not taking.Reported on 06/16/2025 clonazePAM (KLONOPIN) 0.5 MG tabletIndicatio ns:Anxiety Take 1 tablet (0.5 mg total) by mouth nightly as needed for Anxiety. 10 tablet 2 Active Additional Information Patient not taking.Reported on 06/16/2025 Candesartan Cilexetil-HCTZ 32-12.5 MG Tab Take 1 tablet by mouth daily. 2 Active NYSTOP powder Apply 1 Application topically 2 (two) times daily. 2 Active nicotine polacrilex (NICORETTE) 4 MG Gum gum Take 1 each by mouth as needed. 2 Active baclofen (LIORESAL) 10 MG tablet Take 1 tablet (10 mg total) by mouth daily. 5 Active DULoxetine (CYMBALTA) 30 MG capsule Take 1 capsule (30 mg total) by mouth daily. 5 Active erythromycin (ROMYCIN) 5 MG/GM (0.5%) ophthalmic ointment Place into the left eye 2 (two) times daily. 5 Active rOPINIRole (REQUIP) 0.5 MG tablet Take 1 tablet (0.5 mg total) by mouth nightly. 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 Brain mass 05/05/2022 Intracranial mass 04/26/2022 Resolved Problems Problem Noted Date Diagnosed Date Resolved Date CVA (cerebral vascular accident) 04/25/2022 04/28/2022 Family History Medical History Relation Comments Hypertension Father Relation Status Comments Father Alive Mother Alive Paternal Grandfather Social History Tobacco Use Types Packs/Day Years Used Date Smoking Tobacco: Former Cigarettes 1 15 0 04/25/2007 - 04/25/2022 Smokeless Tobacco: Current Tobacco Cessation:Ready to Q uit: Not Asked; Counseling Given: No Comments:Nicotine pouches Alcohol Use Standard Drinks/Week Comments Yes 0 (1 standard drink = 0.6 oz pur e alcohol) occasion PHQ-2 Answer Date Recorded Patient Health Questionnaire-2 Score 0 06/16/2025 Sex and Gender Information Value Date Recorded Sex Assigned at Male 06/16/2025 9:55 AM CDT Legal Sex Male 4:07 PM CDT Gender Identity Male 06/16/2025 9:55 AM CDT Sexual Orientation Not on file Last Filed Vital Signs Vital Sign Reading Time Taken Comments Blood Pressure 118/72 06/16/2025 9:49 AM CDT Pulse 101 06/16/2025 9:49 AM CDT Temperature 36.4 C (97.5 F) 06/16/2025 9:49 AM CDT Respiratory Rate 16 06/16/2025 9:49 AM CDT Oxygen Saturation 96% 06/16/2025 9:49 AM CDT Inhaled Oxygen Concentration - - Weight 110.9 kg (244 lb 8 oz) 06/16/2025 9:49 AM CDT Height 188 cm (6' 2) 06/16/2025 9:49 AM CDT Body Mass Index 31.39 06/16/2025 9:49 AM CDT Plan of Treatment Health Maintenance Due Date Last Done Comments Colorectal Cancer Screening Colonoscopy (10 Years) 1976 Annual Physical 02/07/1979 Hepatitis C 02/07/1994 Hepatitis B Vaccines (1 of 3 - 19+ 3-dose series) 02/07/1995 COVID-19 Vaccine ( season) 2025 06/12/2021, 05/15/2021, 05/10/2021 Influenza Adult (#1) 2025 DTaP, Tdap and Td Vaccines (5 - Td or Tdap) 05/11/2034 05/11/2024, 02/03/2024, 11/04/2023, Additional history exists Pneumococcal Vaccine: Pediatrics (0 to 5 Years) and At-Risk Patients (6 to 49 Years) Aged Out 08/10/2024, 05/11/2024, 02/03/2024, Additional history exists No longer eligible based on patient's age to complete this topic PHQ-2 (Physician [place]) Completed 06/16/2025 Hepatitis A Vaccines Aged Out No long er eligible based on patient's age to complete this topic Meningococcal B Vaccine Aged Out No l onger eligible based on patient's age to complete this topic Meningococcal Vaccine Aged Out No rodolfo negar eligible based on patient's age to complete this topic RSV Immunizations Under 20 Months Aged Out No longer eligible based on patient's age to complete this topic Goals Goal Patient Goal Type Associated Problems Recent Progress Patient-Stated? 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
--- OUTSIDE RECORDS SUMMARY | 2025-09-17 15:44 | XMS_ITS | Encounter Summary ---
Author Organization [facility] Address [address] [place] [address] Phone Care Team Providers Care Leather Goods Sales Representative Name Role Phone Hermilo Valiente DO Primary Care Provider [phone] Hermilo Valiente DO Unavailable Jennifer Denise MD Unavailable [phone] Fina Morgan MD Unavailable [phone] Max Al NP Primary Care Provider [phone] Encounter Details Date Type Department Care Team (Late st Contact Info) Description 05/03/2023 Documentation [facility] [address] [facility] [address] 7th [place] [address] [place] [id number] Jacki Lee NP [address] [place] [address] Social History Tobacco Use Types Packs/Day Years Used Date Smoking Tobacco: Former Cigarettes 1 25.5 1 997 - 04/24/2022 Smokeless Tobacco: Never Social Connection and Isolation Panel Answer Date Recorded In a typical week, how many times do you talk on the phone with family, friends, or neighbors? More than three times a week 01/18/2023 How often do you get togethe r with friends or relatives? More than three times a week 01/18/2023 How often do you attend chur ch or caodaism services? Never 01/18/2023 Do you belong to any clubs o r organizations such as protestant groups, unions, fraternal or athletic groups, or [...] place to sleep or slept in a care home (including now)? No 01/18/2023 Personal Safety Answer Date Recorded Have you ever been in or are you currently in a harmful physical or emotional relationship or is someone making you feel afraid or unsafe? 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 Gender Identity Male 05/26/2022 12:46 PM CDT Sexual Orientation Not on file documented as of this encounter Functional Status documented as of this encounter Plan of Treatment Not on file documented as of this encounter Visit Diagnoses Not on filedocumented in this encounter Care Teams Leather Goods Sales Representative Relationship Specialty Start Date End Date Hermilo Valiente DO PCP - General Internal Medicine 05/18/22 04/27/24 Max Al NP [address] [facility] 1 [facility] 1 [place] [address] PCP - General Nurse Practitioner 04/28/24 Hermilo Valiente DO Internal Medicine 05/18/22 Jennifer Denise MD Medical Oncologist/Spout Worker Medical Oncology 06/09/22 Fina Morgan MD Consulting Physician Medical Oncology 07/17/22 documented as of this encounter
--- OUTSIDE RECORDS SUMMARY | 2025-09-17 15:44 | XMS_ITS ---
Author Organization [facility] Address [address] [place] [address] Care Team Providers Care Jewel Hole Rough Opener Name Role Phone Hermilo Valiente DO Unavailable Jennifer Denise MD Unavailable [phone] Fina Morgan MD Unavailable [phone] Max Al NP Primary Care Provider [phone] Active Problems Patient Care Coordination No te Formatting of this note is d ifferent from the original. 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..] pain. Assessment & Plan (11/10/2023 7:09 PM DATABASE PROGRAMMER): Does have some ongoing axial pain but [...] duloxetine. Assessment & Plan (11/10/2023 7:11 PM DATABASE PROGRAMMER): Benefit from LESI and duloxetine. Will increase duloxetine to 60mg/day. If he finds SE are worse or not worth the benefit he will continue at 30mg/day. Repeat LESI prn Assessment & Plan (08/30/2023 2:13 PM DATABASE PROGRAMMER): Though central pain is likely a component [...] anaplastic large cell lymphoma diagnosed 05/30/2022 with TERRAZZO LAYER involvement. He has completed 6 cycles of [...] thrombocytopenia. Assessment & Plan (08/27/2022 7:45 PM DATABASE PROGRAMMER): Dx 06/2022 of LLE -cont eliquis Depression 08/27/2022 Assessment & Plan (01/15/2023 12:57 PM CDT): -continue home escitalopram 10 Assessment & Plan (08/27/2022 7:46 PM DATABASE PROGRAMMER): Cont lexapro Tear of left glenoid labrum [...] normotension Assessment & Plan (08/27/2022 7:46 PM DATABASE PROGRAMMER): Cont losartan (for candesartan per formulary) and [...] 2021 Assessment & Plan (08/27/2022 7:44 PM DATABASE PROGRAMMER): Admitted for C4 HD-MTX dose reduced given [...] 06/08/2022 Assessment & Plan (08/27/2022 7:43 PM DATABASE PROGRAMMER): Dx 05/2022 with adrenal biopsy c/w ALK [...] Hannah MD 4 of 7 cycles completed [id number] OUTPT - [facility] - Heme/BMT - Duvelisib Maintenance after Autologous SCT 02/18/20 23 02/15/2023 [facility] duvelisib () Patient Preference Fina Morgan MD [...] of 6 cycles started Oncology Supportive Care Therapy Plan Plan Name Start Date Discontinue Date Treatment [...] Problem Noted Date Diagnosed Date Resolved Date TERRAZZO LAYER lymphoma 07/30/2022 08/27/2022
--- OUTSIDE RECORDS SUMMARY | 2025-09-17 15:44 | XMS_ITS | Encounter Summary ---
Author Organization [facility] Address [address] [place] [address] Care Team Providers Care Digital Intern Name Role Phone Hermilo Valiente DO Primary Care Provider [phone] Hermilo Valiente DO Unavailable Jennifer Denise MD Unavailable [phone] Fina Morgan MD Unavailable [phone] Max Al NP Primary Care Provider + [phone] Reason for Visit * Reason Onset Date Comments [facility] Preprocedure 02/16/2024 Encounter Details Date Type Department Care Team (Late st Contact Info) Description 02/16/2024 Telephone [facility] [address] [facility] [address] [place] [address] Dereck Perrin MD [address] [place] [address] [facility] Preprocedure Social History Tobacco Use Types Packs/Day [...] often do you attend chur ch or baptism services? 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
--- OUTSIDE RECORDS SUMMARY | 2025-09-17 15:44 | XMS_ITS | Clinical Summary ---
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 Assessment & Plan (11/10/2023 7:09 PM GUT CLEANER): Does have some ongoing axial pain but [...] duloxetine. Assessment & Plan (11/10/2023 7:11 PM GUT CLEANER): Benefit from LESI and duloxetine. Will increase duloxetine to 60mg/day. If he finds SE are worse or not worth the benefit he will continue at 30mg/day. Repeat LESI prn Assessment & Plan (08/30/2023 2:13 PM GUT CLEANER): Though central pain is likely a component [...] anaplastic large cell lymphoma diagnosed 05/30/2022 with LEAD MANUFACTURING TECHNICIAN involvement. He has completed 6 cycles of [...] thrombocytopenia. Assessment & Plan (08/27/2022 7:45 PM GUT CLEANER): Dx 06/2022 of LLE -cont eliquis Depression 08/27/2022 Assessment & Plan (01/15/2023 12:57 PM CDT): -continue home escitalopram 10 Assessment & Plan (08/27/2022 7:46 PM GUT CLEANER): Cont lexapro Tear of left glenoid labrum [...] normotension Assessment & Plan (08/27/2022 7:46 PM GUT CLEANER): Cont losartan (for candesartan per formulary) and [...] 2021 Assessment & Plan (08/27/2022 7:44 PM GUT CLEANER): Admitted for C4 HD-MTX dose reduced given [...] 06/08/2022 Assessment & Plan (08/27/2022 7:43 PM GUT CLEANER): Dx 05/2022 with adrenal biopsy c/w ALK [...] Problem Noted Date Diagnosed Date Resolved Date LEAD MANUFACTURING TECHNICIAN lymphoma 07/30/2022 08/27/2022 Encounters Date Type Department Care Team Description 07/26/2025 10:30 AM CDT Office Visit [facility] Medicine Oncology [address] [place] [phone] Jennifer Denise MD 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) from Last 3 Months Immunizations Immunization Administration Dates Next Due DTaP 02/03/2024,11/04/2023 Hep B, Dialysis 05/11/2024,02/03/2024,11/04/2023 Hib (PRP-T) 05/11/2024,02/03/2024,11/04/2023 IPV 08/10/2024,02/03/2024,11/04/2023 Moderna Sars-cov-2 Monovalen t Booster Vaccination (12+ YRS) 06/12/2021,05/15/2021,05/10/2021 Pneumococcal Conjugate Pcv20 08/10/2024, 05/11/2024,02/03/2024,2023 Tdap 05/11/2024,10/18/2020 ZOSTER Recombinant 02/03/2024,11/04/2023 Surgical History [...] Cessation:Counseling Given: Not Answered Social Connection and Isolation Panel Answer Date [...] any clubs o r organizations such as zoroastrianism groups, unions, fraternal or athletic groups, or [...] place to sleep or slept in a usp (including now)? No 01/18/2023 Personal Safety Answer Date Recorded Have you ever been in or are you currently in a harmful physical or emotional relationship or is someone making you feel afraid or unsafe? Denies 11/07/2024 Sex and Gender Information Value Date Recorded Sex Assigned at Not on file Legal Sex Male 6:00 PM GUT CLEANER Gender Identity Male 05/26/2022 12:46 PM CDT Sexual Orientation Not on file Last Filed Vital Signs Vital Sign Reading Time Taken Comments Blood Pressure 124/84 07/26/2025 9:55 AM CDT Pulse 97 07/26/2025 9:55 AM CDT Temperature 36.5 C (97.7 F) 07/26/2025 9:53 AM CDT Respiratory Rate 18 07/26/2025 9:53 AM CDT Oxygen Saturation 98% 07/26/2025 9:55 AM CDT Inhaled Oxygen Concentration - - Weight 110.7 kg (244 lb) 07/26/2025 9:53 AM CDT Height 185.5 cm (6' 1.03) 01/25/2025 11:02 AM C DT Body Mass Index 32.16 01/25/2025 11:02 AM CDT Plan of Treatment Health Maintenance Due Date Last Done Comments Colon Cancer Screening-Colonoscopy 1976 Regular Well Visit/Exam 18-64 02/07/1994 Covid-19 Vaccine (3 - Mixed Product risk series) 07/10/2021 06/12/2021, 06/12/2021, 05/15/2021, Additional history exists Depression Screening 11/24/2023 11/24/2022 Influenza Vaccine (#1) 2025 DTaP/Tdap/Td Vaccine (5 - Td or Tdap) 05/11/2034 05/11/2024, 02/03/2024, 11/04/2023, Additional history exists Hepatitis C Screening Completed 06/05/2022 Zoster Vaccine Completed 02/03/2024, 11/04/2023 Hepatitis B Screening Completed 08/10/2024 , 05/11/2024, 02/03/2024, Additional history exists Pneumococcal vaccine <65 Completed 024, 05/11/2024, 02/03/2024, Additional history exists Goals Goal Patient Goal Type Associated Problems Recent Progress Patient-Stated? Author CCM Chronic Pain Care Plan Chronic Care Management No change(02/17 10:45 AM CDT) No Ailyn Llanes, RN Note: Problem: Chronic Pain Goals: 1. Minimize further functional decline 2. Maximize quality of life 3. Control pain Strategies: - Activity/exercise program recommendation - Conservative stepwise pain medicine strategy with multi-disciplinary approach - Recommend healthy lifestyle strategies and compensatory methods as needed Medical Devices Implanted Type Area Electrical Sign Wirer Helper Device Identifier Shelf Expiration Date Model / Serial / Lot [employer] Xcela Power Port 8fr [id number] - [id number] Implanted:Qty: 1 on 07/16/2022 at [facility] [employer] 04/05/2027 [id number] / / [id number] Procedures Procedure Name Priority Date/Time Associated Diagnosis Comments EGFR Routine 07/26/2025 9:47 AM CDT 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) DIFFERENTIAL AUTO Routine 07/26/2025 9:4 7 AM CDT 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 73 m2 Comment: [...] interpretive data was last reviewed 2021. Blood 07/26/2025 9:47 AM CDT 07/26/2025 10:06 AM CDT us Jacki Lee PASTING MACHINE OFFBEARER LAB BLOOD ORDERABLES Final Result [facility] Department [place] [address] * Differential, auto (07/26/2025 9:47 AM CDT) Neutrophil abs 3.88 1.50 - 6.50 K/cumm Comment:Testing performed by : [facility], [address] [place] [address] Lymphocyte abs 1.70 0.80 - 3.30 K/cumm CERNER NELDA Comment:Testing performed by : [facility], [address] [place], [place] [phone] Monocyte abs 0.57 0.20 - 0.80 K/cumm CERNER NELDA Comment:Testing performed by : [facility], [address] [place], [place] [phone] Eosinophil abs 0.04 0.00 - 0.50 K/cumm CERMACRINA LUTZ Comment:Testing performed by : [facility], [address] [place] [phone] Basophil abs 0.02 0.00 - 0.10 K/cumm CERNER BJ Comment:Testing performed by : [facility], [address] [place] [phone] Neutrophil pct 62.5 % CERNER BJ Comment: Interpretive Data Percent cell count reference ranges are not reported, since discordance with absolute values may lead to misinterpretation of CBC data. Current Interpretive Data was last revised on 2018. Testing performed by: [facility], [address] [place] [phone] Lymphocyte pct 27.4 % CERNER BJ Comment: Interpretive Data Percent cell count reference ranges are not reported, since discordance with absolute values may lead to misinterpretation of CBC data. Current Interpretive Data was last revised on 2018. Testing performed by: [facility], [address] [place] [phone] Monocyte pct 9.1 % DENIS LUTZ Comment: Interpretive Data Percent cell count reference ranges are not reported, since discordance with absolute values may lead to misinterpretation of CBC data. Current Interpretive Data was last revised on 2018. Testing performed by: [facility], [address] [place] [phone] Eosinophil pct 0.7 % DENIS LUTZ Comment: Interpretive Data Percent cell count reference ranges are not reported, since discordance with absolute values may lead to misinterpretation of CBC data. Current Interpretive Data was last revised on 2018. Testing performed by: [facility], [address] [place] [phone] Basophil pct 0.3 % DENIS LUTZ Comment: Interpretive Data Percent cell count reference ranges are not reported, since discordance with absolute values may lead to misinterpretation of CBC data. Current Interpretive Data was last revised on 2018. Testing performed by: [facility], [address] [place] [phone] Blood 07/26/2025 9:47 AM CDT 07/26/2025 9:57 AM CDT us Jacki Lee PASTING MACHINE OFFBEARER LAB BLOOD ORDERABLES Final Result [facility] Department [place] [address] * CBC with auto differential (07/26/2025 9:47 AM CDT) WBC 6.21 3.80 - 9.90 K/cumm Comment:Testing performed by : [facility], [address] [place] [phone] Hgb 16.7 13.0 - 17.5 g/dL DENIS LUTZ Comment:Testing performed by : [facility], [address] [place] [phone] Hct 49.1 38.9 - 50.3 % DENIS LUTZ Comment:Testing performed by : [facility], [address] [place] [address] Plt 174 150 - 400 K/cumm DENIS LUTZ Comment:Testing performed by : [facility], [address] [place] [address] MPV 7.6 6.8 - 10.4 fL DENIS LUTZ Comment:Testing performed by : [facility], [address] [place] [address] RBC 5.20 4.30 - 5.80 M/cumm DENIS LUTZ Comment:Testing performed by : [facility], [address] [place] [address] MCV 94.5 81.3 - 96.4 fL DENIS LUTZ Comment:Testing performed by : [facility], [address] [place] [address] MCH 32.1 27.1 - 33.3 pg DENIS LUTZ Comment:Testing performed by : [facility], [address] [place] [address] MCHC 33.9 32.3 - 35.7 g/dL [facility] Comment:Testing performed by : [facility], [address] [place] [address] RDW CV 13.4 11.1 - 14.9 % [facility] Comment:Testing performed by : [facility], [address] [place] [address] NRBC abs 0.00 0.00 - 0.01 K/cumm DENIS LUTZ Comment:Testing performed by : [facility], [address] [place] [address] Blood 07/26/2025 9:47 AM CDT 07/26/2025 9:57 AM CDT us Jacki Lee PASTING MACHINE OFFBEARER LAB BLOOD ORDERABLES Final Result DENIS LUTZ [facility] Department of Laboratories [place], [place] [id number] * Lactate dehydrogenase (LD) (07/26/2025 9:47 AM CDT) Lactate dehydrogenase (LDH) 157 100 - 250 Units/L Blood 07/26/2025 9:47 AM CDT 07/26/2025 10:06 AM CDT us Jacki Lee PASTING MACHINE OFFBEARER LAB BLOOD ORDERABLES Final Result [facility] Department [place] [address] * (ABNORMAL) Comprehensive metabolic panel (07/26/2025 9:47 AM CDT) Pathologist [facility] Sodium 141 135 - 145 mmol/L Potassium, pl 4.4 3.3 - 4.9 mmol/L [facility] Chloride 104 97 - 110 mmol/L [facility] CO2 29 22 - 32 mmol/L [facility] Anion gap 8 2 - 15 mmol/L [facility] BUN 8 6 - 25 mg/dL [facility] Creatinine 0.75(L) 0.80 - 1.30 mg/dL [facility] Glucose 89 70 - 199 mg/dL [facility] Comment: Interpretive Data Fasting glucose >/= 126 [...] interpretive data was last revised 2022. Calcium 9.1 8.5 - 10.3 mg/dL [facility] Bilirubin, total 0.5 0.1 - 1.2 mg/dL [facility] Protein, pl 6.7 6.5 - 8.5 g/dL [facility] Albumin 4.4 3.5 - 5.0 g/dL [facility] Alk phos 83 40 - 130 Units/L [facility] ALT 84(H) 7 - 55 Units/L [facility] AST 40 10 - 50 Units/L [facility] Blood 07/26/2025 9:47 AM CDT 07/26/2025 10:06 AM CDT us Jacki Lee PASTING MACHINE OFFBEARER LAB BLOOD ORDERABLES Final Result Performing Organization Address City/[facility]/ZIP Co de Phone Number [facility] Department [place] [address] * Hepatitis panel, acute (06/05/2022 2:52 AM CDT) Hep A IgM Nonreactive Nonreactive [facility] Comment: Interpretive Data: If Hep A IgM Ab is reported as Equivocal, a new sample should be drawn in two weeks for testing. Current interpretive data was last revised on 20. Hep B core IgM Nonreactive Nonreactive [facility] Comment: Interpretive Data If HepB Core IgM Ab is reported as Equivocal, a new sample should be drawn in two weeks for testing. Current interpretive data was last revised on 20. Hep C Ab Nonreactive Nonreactive [facility] Comment:Antibodies to HCV no t detected. Does NOT exclude the possibility of recent exposure to HCV. HepBsAg Nonreactive Nonreactive [facility] Blood 06/05/2022 2:52 AM CDT 06/05/2022 3:00 AM CDT us Elenita Hinojosa PASTING MACHINE OFFBEARER LAB MICROBIOLOGY - GENERA L ORDERABLES Edited Result - Final Performing Organization Address [facility]/ZIP Co de Phone Number [facility] Department [place] [address] from Last 3 Months or Most Recently Relevant to Health Maintenance Insurance [facility] H[facility]/PPO Address: [address] [address] [place] [address] GENERIC COPAY ASSIST [facility] HMO/PPO Address: [address] [address] [place] [address] Advance Directives For more information, please contact: [phone] * Full Code (Latest Code Status on [...] 2:05 PM 09/27/2022 1:37 PM Care Teams Office Cleaner Relationship Specialty Start Date End Date Max Al NP [address] [address] [facility] 1 [place] [address] PCP - General Nurse Practitioner 04/28/24 Hermilo Valiente DO Internal Medicine 05/18/22 Jennifer Denise MD Medical Oncologist/Telephone Exchange Operator Medical Oncology 06/09/22 Fina Morgan MD Consulting Physician Medical Oncology 07/17/22
--- OUTSIDE RECORDS SUMMARY | 2025-09-17 15:44 | XMS_ITS | Clinical Summary ---
Author Organization [facility] Address [address], [facility] [address] [place] [address] Phone Care Team Providers Care Boilermaker Loftsman Name Role Phone Hermilo Valiente Primary Care Provider [phone] Jose Diallo MD Unavailable [phone] Allergies Active Allergy Reactions Criticality Noted Date [...] 2:39 PM CDT Height 188 cm (6' 2) 06/03/2022 2:39 PM CDT Body Mass Index 27.22 06/03/2022 2:39 PM CDT Plan of Treatment Health Maintenance Due Date Last Done Comments Hepatitis B Immunization (1 of 3 - 19+ 3-dose series) 02/07/1995 Cologuard 02/07/2021 Colonoscopy 02/07/2021 Colorectal Cancer Screening 02/07/2021 Immunochemical Fecal Occult Blood 02/07/2021 Influenza Immunization (#1) 2025 SARS-COV-2 Immunization ( season) 2025 Respiratory Syncytial Virus (RSV) Immunization (Adult) (1 - 1-dose 75+ series) 02/07/2051 DTaP/Tdap/Td Immunization Discontinued 10/18/2020 TdaP Immunization Completed 10/18/2020 Hepatitis C Virus (HCV) Screening Completed 022 Human Papillomavirus (HPV) Immunization Aged Out No longer eligible b ased on patient's age to complete this topic Meningococcal Immunization (ACWY) Aged Out No longer eligible based on patient's age to complete this topic Pneumococcal Immunization Combined Aged Out No longer eligible based on patient's age to complete this topic Rotavirus Immunization Aged Out No lo nger eligible based on patient's age to complete this topic Insurance [employer] Care Teams Boilermaker Loftsman Relationship Specialty Start Date End Date Hermilo Valiente DO [address] [place] [address] PCP - General Internal Medicine 04/27/22 Jose Diallo MD [address] [place] [phone] Consulting Physician Oncology 05/01/22
--- OUTSIDE RECORDS SUMMARY | 2025-09-17 15:44 | XMS_ITS | Clinical Summary ---
Author Organization [facility] Address [address] [place] [address] Care Team Providers Care Dairy Farmer Name Role Phone Hermilo Valiente DO Primary Care Provider [phone] Source Comments [facility],non-owned Affiliates and Associated Physician Practices is amultiple site organization consisting of ambulatory clinics and hospital sitesin [place], [place], [place] and [place]. This disclosure is being madepursuant to the Care Everywhere program and may not contain all information available regarding this patient. Last updated 18.[facility] [employer] Allergies Active Allergy Reactions Criticality Noted Date Comments Anjel Inhibitors Anaphylaxis High 05/21/2022 Ibuprofen Anaphylaxis High 05/21/2022 Medications * Be aware that medications may not be up to date on this document. Alwaysverify current medications with the patient. atorvastatin (Lipitor) 40 MG tablet Take 40 mg by mouth daily with dinner 2 Active baclofen (Lioresal) 5 MG TABS Take 1 tablet by mouth 3 times daily 2 Active candesartan (Atacand) 32 MG tablet Take 32 mg by mouth daily with dinner Active clonazePAM (KlonoPIN) 0.5 MG tablet Take 0.5 mg by mouth once daily as needed 2 Active dexAMETHasone (Decadron) 2 MG tablet Take 2 mg by mouth 2 times daily 2 Active dilTIAZem ER 24hr (Tiazac) 300 MG capsule Take 300 mg by mouth daily with dinner 2 Active fexofenadine (Rocio) 180 MG tablet Take 180 mg by mouth daily with dinner Active levETIRAcetam (Keppra) 500 MG tablet Take 500 mg by mouth 2 times daily 2 Active pantoprazole EC (Protonix) 40 MG tablet Take 40 mg by mouth daily with breakfast 2 Active Active Problems Problem Noted Date [...] at Not on file Legal Sex Male 3:16 PM CDT Gender Identity Not on file [...] 12:34 PM CDT Height 188 cm (6' 2) 05/21/2022 12:34 PM CDT Body Mass Index [...] of 3 - 19+ 3-dose series) 02/07/1995 DEPRESSION SCREENING 10/18/2024 COVID-19 VACCINE (2024-2 6 season) 2025 INFLUENZA VACCINE (#1) 2025 ZOSTER VACCINE (1 of 2) 02/07/2026 HIB [...] age to complete this topic Insurance [employer] [facility] Address: [facility] [id number] [place] [address] [employer] [facility] Address: [facility] [id number] [facility] [address] Advance Directives * Full Code (Latest Code Status on File) Date Activated Date Inactivated Comments 05/21/2022 6:42 PM 05/22/2022 1:53 PM * Full Code Date Activated Date Inactivated Comments 05/21/2022 6:26 PM 05/21/2022 6:42 PM Care Teams Dairy Farmer Relationship Specialty Start Date End Date Hermilo Valiente DO [address] [address] PCP - General Internal Medicine 05/21/22
--- OUTSIDE RECORDS SUMMARY | 2025-09-17 15:44 | XMS_ITS | Encounter Summary ---
Author Organization [facility] Address [address] [place] [address] Phone Care Team Providers Care Accounting Bookkeeper Name Role Phone Hermilo Valiente DO Unavailable Jennifer Denise MD Unavailable [phone] Fina Morgan MD Unavailable [phone] Max Al NP Primary Care Provider [phone] Encounter Details Date Type Department Care Team (Late st Contact Info) Description 10/19/2024 Telephone [facility] Medicine Oncology [address] [facility] Floor [address] [place] [address] Jacki Lee NP [address] [place] [address] Social History Tobacco Use Types [...] week 01/18/2023 How often do you attend [facility] or [facility] services? Never 01/18/2023 Do you belong to any clubs o r organizations such as voodoo groups, unions, fraternal or athletic groups, or [...] on file Legal Sex Male 6:00 PM COMPOSITION SIDING WORKER Gender Identity Male 05/26/2022 12:46 PM CDT Sexual Orientation Not on file documented as of this encounter Functional Status documented as of this encounter Ordered Prescriptions [...] documented as of this encounter Care Teams Accounting Bookkeeper Relationship Specialty Start Date End Date Max Al NP [address] [place] [address] PCP - General Nurse Practitioner 04/28/24 Hermilo Valiente DO Internal Medicine 05/18/22 Jennifer Denise MD Medical Oncologist/Analytical Data Scientist Medical Oncology 06/09/22 Fina Morgan MD Consulting Physician Medical Oncology 07/17/22 documented as of this encounter
--- OUTSIDE RECORDS SUMMARY | 2025-09-17 15:44 | XMS_ITS | Encounter Summary ---
Author Organization [facility] Address [address] [place] [address] Phone Care Team Providers Care Healthcare Financial Analyst Name Role Phone Hermilo Valiente DO Primary Care Provider [phone] Jose Diallo MD Unavailable [phone] Encounter Details Date Type Department Care Team (Late st Contact Info) Description 05/20/2022 Telephone [facility] [address] [place] [address] Jose Diallo MD [address] [place] [address] Social History Tobacco Use Types [...] on filedocumented in this encounter Care Teams Healthcare Financial Analyst Relationship Specialty Start Date End Date Hermilo Valiente DO [address] [address] PCP - General Internal Medicine 04/27/22 Jose Diallo MD [address] [place] [address] Consulting Physician Oncology 05/01/22 documented as of this encounter
--- OUTSIDE RECORDS SUMMARY | 2025-09-17 15:44 | XMS_ITS | Encounter Summary ---
Author Organization [facility] Address [address] [place] [address] Phone Care Team Providers Care Turkey Roll Maker Name Role Phone Hermilo Valiente DO Primary Care Provider [phone] Hermilo Valiente DO Unavailable Jennifer Denise MD Unavailable [phone] Fina Morgan MD Unavailable [phone] Max Al NP Primary Care Provider + [phone] Encounter Details Date Type Department Care Team (Late st Contact Info) Description 06/15/2022 Telephone [facility] Oncology [address] [facility] 7th [place] [address] [place] [address] Jacki Lee NP [address] [place] [address] Social History Tobacco Use Types Packs/Day Years [...] on file Legal Sex Male 6:00 PM MARKETING AMBASSADOR Gender Identity Male 05/26/2022 12:46 PM CDT [...] COVID: Suspected 12/14/2022 12/14/2022 12/14/2022 2:39 PM MARKETING AMBASSADOR COVID19 12/14/2022 12/14/2022 12/24/2022 3:05 AM MARKETING AMBASSADOR COVID: Recovered Comment:Added based on recent COVID infection. 12/24/2022 01/01/2023 03/24/2023 3:05 AM C DT documented as of this encounter Care Teams Turkey Roll Maker Relationship Specialty Start Date End Date Hermilo Valiente DO PCP - General Internal Medicine 05/18/22 04/27/24 Max Al NP [address] [facility] [address] [place] [address] PCP - General Nurse Practitioner 04/28/24 Hermilo Valiente DO Internal Medicine 05/18/22 Jennifer Denise MD Medical Oncologist/Edge Finisher Medical Oncology 06/09/22 Fina Morgan MD Consulting Physician Medical Oncology 07/17/22 documented as of this encounter
--- OUTSIDE RECORDS SUMMARY | 2025-09-17 15:44 | XMS_ITS | Encounter Summary ---
Author Organization [facility] Address [address] [place] [address] Phone Care Team Providers Care Hatch Tender Name Role Phone Hermilo Valiente DO Primary Care Provider [phone] Jose Diallo MD Unavailable Reason for Visit * Reason Comments Medication Refill Encounter Details Date Type Department Care Team (Late st Contact Info) Description 07/30/2022 Refill [facility] [address] [address] Jose Diallo MD [address] [place] [phone] Medication Refill Social History Tobacco Use [...] on filedocumented in this encounter Care Teams Hatch Tender Relationship Specialty Start Date End Date Hermilo Valiente DO [address] [address] PCP - General Internal Medicine 04/27/22 Jose Diallo MD [address] [place] [phone] Consulting Physician Oncology 05/01/22 documented as of this encounter
--- NOTE | 2025-09-17 17:17 | ED.FALL ---
HPI - Fall General Chief Complaint: Fall Stated Complaint: fall, broke ribs Time Seen by Provider: 09/17/25 17:09 Source: patient Mode of arrival: ambulatory Limitations: no limitations History of Present Illness HPI Narrative: This is a 50-year-old male that presents to the emergency department after a fall today with left rib pain. He slipped on the ice. Fell onto his left side. He did not hit his head or lose consciousness. Denies any other injuries or focal areas of pain. Related Data Home Medications ?Medication ?Instructions ?Recorded ?Confirmed ?Last Taken ?Type fexofenadine 180 mg tablet 180 mg PO DAILY 02/18/23 07/05/25 Unknown History (Rocio Allergy) ropinirole 0.5 mg tablet 0.5 mg PO QHS 08/26/23 07/05/25 Unknown History duloxetine 30 mg capsule,delayed 30 mg PO DAILY 03/10/24 07/05/25 Unknown History release (Cymbalta) Allergies Allergy/AdvReac Type Severity Reaction Status Date / Time gluten Allergy Severe Trouble Verified 09/17/25 15:10 swallowing CLAYTON Inhibitors Allergy Mild Anaphylaxis Verified 09/17/25 15:10 ibuprofen Allergy Mild Anaphylaxis Verified 09/17/25 15:10 Review of Systems Review of Systems: All systems reviewed & are unremarkable except as noted in HPI and below PMFSH Past Medical History Medical History BMI 31.0-31.9,adult Left shoulder pain T-cell lymphoma On manager intermediate drug therapy BMI 29.0-29.9,adult Radial tunnel syndrome surgery 2016, Dr. Ballard BMI 27.0-27.9,adult Essential hypertension Gastroesophageal reflux disease Mixed hyperlipidemia Surgical History Surgical History History of surgical removal of ganglion cyst right wrist H/O elbow surgery [address] Ballard Family History Family History Father Heart disease Hypertension COPD (chronic obstructive pulmonary disease) Emphysema of lung Mother Hypertension Asthma Sibling Diabetes mellitus Other Family history of allergic disorder Family history of cardiovascular disease Family history of malignant neoplasm Malignant neoplasm of prostate Social History Social History Smoking packs per day: 0.5 Smoking cigarettes per day: 10.0 Years smoked: 24 Smoking pack-years: 12.00 Smoking status: Former smoker Tobacco type: cigarettes Second hand tobacco smoke exposure: No Smoking end date: 04/17/22 Alcohol intake: current Alcohol use details: Social, casual, hasn't drank in a year Substance use: never Substance use type: does not use Lack of Transportation: No Lack of Food: Never True Current Housing: I Have Housing Concerned About Future Housing: No Difficulty Paying Gas/Electric Bills: No Difficulty Paying for Meds: No Currently Unemployed: No Education: Trade/Vocational Certificate Difficulty w/ Childcare or Family Care: No Living arrangements: with family Occupation/Education: occupation 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 HEAD: Normocephalic, atraumatic. EYES: PERRLA and EOMI. ENT: Nares clear, no rhinorrhea or epistaxis. Mucous membranes moist. Oropharynx without tonsillar hypertrophy exudate or other lesions. Bilateral TMs pearly [place] non-bulging NECK: Supple. No adenopathy or masses. CHEST: Clear to auscultation. No respiratory distress. No wheezes rales or rhonchi HEART: Regular rate and rhythm. No murmur heard. Normal peripheral pulses. EXTREMITIES: Normal range of motion. No edema or obvious deformity. SKIN: Warm, dry, no rash. NEURO: No focal deficits. Alert and oriented x3. CN II-XII grossly intact PSYCH: Normal mood and affect Course Vital Signs Vital signs: Vital Signs Temperature 97.7 F 09/17/25 15:08 Pulse Rate 92 09/17/25 15:08 Respiratory Rate 16 09/17/25 15:08 Blood Pressure 150/89 H 09/17/25 15:08 Pulse Oximetry 100 09/17/25 15:08 Oxygen Delivery Room Air 09/17/25 15:08 Temperature 97.7 F 09/17/25 15:08 Pulse Rate 92 09/17/25 15:08 Respiratory Rate 16 09/17/25 15:08 Blood Pressure 150/89 H 09/17/25 15:08 Pulse Oximetry 100 09/17/25 15:08 Oxygen Delivery Room Air 09/17/25 15:08 MDM MDM Narrative Medical decision making narrative: Patient presents emergency department after a fall today with left rib pain. Patient is neurologically intact. He did not hit his head or lose consciousness. Left rib/chest x-ray without acute abnormalities. Patient updated on his workup. He is to follow up with primary provider Differential Diagnosis Differential Diagnosis: Rib fracture, rib contusion Imaging Data Radiologist's impression: ITS Impressions Ribs w/Chest X-Ray 09/17/25 17:22 IMPRESSION: 1:No acute displaced rib fractures. Critical Care Time Critical Care Time Critical Care Time: No Discharge Plan Discharge Clinical Impression: Contusion of rib on left side Qualifiers: Encounter type: initial encounter Qualified Code(s): S29.8XXA - Other specified injuries of thorax, initial encounter Patient Disposition: Home Condition: Stable Instructions: Rib Contusion (ED) Additional Instructions: Return to the emergency department if you experience fever, worsening chest pain, shortness of breath, weakness, numbness, or any other symptoms that are concerning to you. Rest, use ice/heat, take Tylenol as needed for pain as well as muscle relaxer (Flexeril) as needed for pain. Muscle relaxers can make you drowsy, do not drive if you take this Follow up with your primary care doctor Patient Language: Zimbabwean Prescriptions: New lidocaine 5 % adhesive patch,medicated 1 patch topical DAILY Qty: 15 0RF Rx Instructions: leave on most painful area for up to 12 hrs cyclobenzaprine 10 mg tablet 10 mg PO TID PRN (Reason: muscle spasm) Qty: 10 0RF No Action ropinirole 0.5 mg tablet 0.5 mg PO QHS duloxetine [Cymbalta] 30 mg capsule,delayed release(DR/EC) 30 mg PO DAILY atorvastatin 40 mg tablet 40 mg PO DAILY Qty: 90 1RF baclofen 10 mg tablet See Rx Instructions .ROUTE .COMPLEX Qty: 90 1RF Dose Instruction: TAKE 1 TABLET BY MOUTH TWICE A DAY NEEDED FOR MUSCLE SPASM Rx Instructions: TAKE 1 TABLET BY MOUTH TWICE A DAY NEEDED FOR MUSCLE SPASM fexofenadine [Rocio Allergy] 180 mg tablet 180 mg PO DAILY rizatriptan 10 mg tablet,disintegrating See Rx Instructions .ROUTE .COMPLEX Qty: 9 1RF Dose Instruction: TAKE 1 TABLET BY MOUTH AT ONSET OF HEADACHE. MAY REPEAT IN 2 HOURS IF NO RELIEF. MAX 3 TABS/24 HRS Rx Instructions: TAKE 1 TABLET BY MOUTH AT ONSET OF HEADACHE. MAY REPEAT IN 2 HOURS IF NO RELIEF. MAX 3 TABS/24 HRS Zepbound 5 mg/0.5 mL solution 5 mg subcut WEEKLY Qty: 2 0RF Follow-up/Referrals: Max Al APRN [Primary Care Provider, Internal Medicine]
[2025-09-17] MEDS: LIDOCAINE 5% PATCH 1 PATCH TRANSDERM (17:24)
[2025-09-17] MEDS: ACETAMINOPHEN 500 MG TABLET 1000 MG PO (17:25)
--- OUTSIDE RECORDS SUMMARY | 2025-09-17 17:38 | XMS_ITS ---
Author Organization [facility] Address [address] [place] [address] Care Team Providers Care Electronic Instrument Trades Worker Name Role Phone Hermilo Valiente DO Unavailable Jennifer Denise MD Unavailable [phone] Fina Morgan MD Unavailable [phone] Max Al NP Primary Care Provider [phone] Active Problems Patient Care Coordination No te Formatting of this note is d ifferent from the original. 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 [address] Treatment Plan BEAM Clinical Trial Reason for Admission BEAM AUTO 01/22/23 Transplant/IEC Planning BMT/IEC Plan D0 01/22/23 HLA typing/IDMs Insurance Approvals/Issues Discharge Planning Anticipated Discharge Date 02/04 Patient Education Completed Discharge teaching completed by Sapna 02/03 Issue to be Resolved Before Discharge Discharge Disposition Requests Sent to Case Management and/or Medical Assistants Post-Discharge Follow-Up Living Situation/Distance from [facility] [address] [place] [address] (25 MIN) Caregiver Lab/Transfusion Frequency Lab/plt1 02/05, [...] pain. Assessment & Plan (11/10/2023 7:09 PM CANOPY STRINGER): Does have some ongoing axial pain but [...] duloxetine. Assessment & Plan (11/10/2023 7:11 PM CANOPY STRINGER): Benefit from LESI and duloxetine. Will increase duloxetine to 60mg/day. If he finds SE are worse or not worth the benefit he will continue at 30mg/day. Repeat LESI prn Assessment & Plan (08/30/2023 2:13 PM CANOPY STRINGER): Though central pain is likely a component [...] anaplastic large cell lymphoma diagnosed 05/30/2022 with EQUIPMENT DETAILER involvement. He has completed 6 cycles of [...] thrombocytopenia. Assessment & Plan (08/27/2022 7:45 PM CANOPY STRINGER): Dx 06/2022 of LLE -cont eliquis Depression 08/27/2022 Assessment & Plan (01/15/2023 12:57 PM CDT): -continue home escitalopram 10 Assessment & Plan (08/27/2022 7:46 PM CANOPY STRINGER): Cont lexapro Tear of left glenoid labrum [...] normotension Assessment & Plan (08/27/2022 7:46 PM CANOPY STRINGER): Cont losartan (for candesartan per formulary) and [...] 2021 Assessment & Plan (08/27/2022 7:44 PM CANOPY STRINGER): Admitted for C4 HD-MTX dose reduced given [...] 06/08/2022 Assessment & Plan (08/27/2022 7:43 PM CANOPY STRINGER): Dx 05/2022 with adrenal biopsy c/w ALK [...] Hannah MD 4 of 7 cycles completed [id number] OUTPT - [facility] - Heme/BMT - Duvelisib Maintenance after Autologous SCT 02/18/20 23 02/15/2023 INV-[facility] duvelisib () Patient Preference Fina Morgan [...] Problem Noted Date Diagnosed Date Resolved Date EQUIPMENT DETAILER lymphoma 07/30/2022 08/27/2022
--- OUTSIDE RECORDS SUMMARY | 2025-09-17 17:38 | XMS_ITS | Encounter Summary ---
Author Organization [facility] Address [address] [place] [address] Phone Care Team Providers Care Mechanic Marine Engine Name Role Phone Hermilo Valiente DO Primary Care Provider [phone] Jose Diallo MD Unavailable Reason for Visit * Reason Comments Medication Refill Encounter Details Date Type Department Care Team (Late st Contact Info) Description 07/30/2022 Refill [facility] [address] [address] Jose Diallo MD [address] [place] [phone] Medication Refill Social History Tobacco Use [...] on filedocumented in this encounter Care Teams Mechanic Marine Engine Relationship Specialty Start Date End Date Hermilo Valiente DO [address] [address] PCP - General Internal Medicine 04/27/22 Jose Diallo MD [address] [place] [phone] Consulting Physician Oncology 05/01/22 documented as of this encounter
--- OUTSIDE RECORDS SUMMARY | 2025-09-17 17:38 | XMS_ITS | Clinical Summary ---
Author Organization [facility] Address [address] [place] [address] Care Team Providers Care Furniture Assembly Supervisor Name Role Phone Hermilo Valiente DO Primary Care Provider [phone] Allergies Active Allergy Reactions Criticality Noted Date [...] age to complete this topic PHQ-2 (Physician [place]) Completed 06/16/2025 Hepatitis A Vaccines Aged Out [...] and discharge planning General No Breanna Nguyễn, REPAIRER FINISHED METALdocument reviewer [employer] UMR Advance Directives * Full Code (Latest Code Status on File) Date Activated Date Inactivated Comments 05/28/2022 9:12 PM 05/29/2022 2:31 PM * Full Code Date Activated Date Inactivated Comments 05/05/2022 2:29 PM 05/07/2022 3:03 PM * Full Code Date Activated Date Inactivated Comments 04/25/2022 2:35 PM 04/30/2022 2:54 PM Care Teams Furniture Assembly Supervisor Relationship Specialty Start Date End Date Hermilo Valiente DO [address] [place] [address] PCP - General INTERNAL MEDICINE 02/20/22
--- OUTSIDE RECORDS SUMMARY | 2025-09-17 17:38 | XMS_ITS | Encounter Summary ---
Author Organization [facility] Address [address] [place] [address] Phone Care Team Providers Care Food Checkers And Cashiers Supervisor Name Role Phone Hermilo Valiente DO Primary Care Provider [phone] Jose Diallo MD Unavailable [phone] Encounter Details Date Type Department Care Team (Late st Contact Info) Description 05/20/2022 Telephone [facility] [address] [place] [address] Jose Diallo MD [address] [place] [address] Social History Tobacco Use Types [...] on filedocumented in this encounter Care Teams Food Checkers And Cashiers Supervisor Relationship Specialty Start Date End Date Hermilo Valiente DO [address] [address] PCP - General Internal Medicine 04/27/22 Jose Diallo MD [address] [place] [address] Consulting Physician Oncology 05/01/22 documented as of this encounter
--- OUTSIDE RECORDS SUMMARY | 2025-09-17 17:38 | XMS_ITS | Encounter Summary ---
Author Organization [facility] Address [address] [place] [address] Phone Care Team Providers Care General I Farmworker Name Role Phone Hermilo Valiente DO Primary Care Provider [phone] Hermilo Valiente DO Unavailable Jennifer Denise MD Unavailable [phone] Fina Morgan MD Unavailable [phone] Max Al NP Primary Care Provider [phone] Encounter Details Date Type Department Care Team (Late st Contact Info) Description 05/03/2023 Documentation [facility] Oncology [address] [facility] 7th [place] [address] [place] [phone] Jacki Lee NP [address] [place] [address] Social History Tobacco Use Types Packs/Day Years [...] often do you attend chur ch or spiritism services? Never 01/18/2023 Do you belong to any clubs o r organizations such as episcopalian groups, unions, fraternal or athletic groups, or [...] place to sleep or slept in a senior living (including now)? No 01/18/2023 Personal Safety Answer Date Recorded Have you ever been in or are you currently in a harmful physical or emotional relationship or is someone making you feel afraid or unsafe? Denies 02/10/2023 Sex and Gender Information Value Date Recorded Sex Assigned at Not on file Legal Sex Male 6:00 PM CARPET TILE LAYER Gender Identity Male 05/26/2022 12:46 PM CDT Sexual Orientation Not on file documented as of this encounter Functional Status documented as of this encounter Plan of Treatment Not on file documented as of this encounter Visit Diagnoses Not on filedocumented in this encounter Care Teams General I Farmworker Relationship Specialty Start Date End Date Hermilo Valiente DO PCP - General Internal Medicine 05/18/22 04/27/24 Max Al NP [address] [facility] 1 [facility] 1 [place] [address] PCP - General Nurse Practitioner 04/28/24 Hermilo Valiente DO Internal Medicine 05/18/22 Jennifer Denise MD Medical Oncologist/Signal Maintainer Helper Medical Oncology 06/09/22 Fina Morgan MD Consulting Physician Medical Oncology 07/17/22 documented as of this encounter
--- OUTSIDE RECORDS SUMMARY | 2025-09-17 17:38 | XMS_ITS | Encounter Summary ---
Author Organization [facility] Address [address] [place] [address] Phone Care Team Providers Care Bank Vault Custodian Name Role Phone Hermilo Valiente DO Primary Care Provider [phone] Hermilo Valiente DO Unavailable Jennifer Denise MD Unavailable [phone] Fina Morgan MD Unavailable [phone] Max Al NP Primary Care Provider + [phone] Encounter Details Date Type Department Care Team (Late st Contact Info) Description 06/15/2022 Telephone [facility] Oncology [address] [facility] 7th [place] [address] [place] [phone] Jacki Lee NP [address] [place] [address] Social History Tobacco Use Types Packs/Day Years [...] on file Legal Sex Male 6:00 PM PATTERN CHAIN MAKER SUPERVISOR Gender Identity Male 05/26/2022 12:46 PM CDT [...] COVID: Suspected 12/14/2022 12/14/2022 12/14/2022 2:39 PM PATTERN CHAIN MAKER SUPERVISOR COVID19 12/14/2022 12/14/2022 12/24/2022 3:05 AM PATTERN CHAIN MAKER SUPERVISOR COVID: Recovered Comment:Added based on recent COVID infection. 12/24/2022 01/01/2023 03/24/2023 3:05 AM C DT documented as of this encounter Care Teams Bank Vault Custodian Relationship Specialty Start Date End Date Hermilo Valiente DO PCP - General Internal Medicine 05/18/22 04/27/24 Max Al NP [address] [facility] [address] [place] [address] PCP - General Nurse Practitioner 04/28/24 Hermilo Valiente DO Internal Medicine 05/18/22 Jennifer Denise MD Medical Oncologist/Mechanical Artist Medical Oncology 06/09/22 Fina Morgan MD Consulting Physician Medical Oncology 07/17/22 documented as of this encounter
--- OUTSIDE RECORDS SUMMARY | 2025-09-17 17:38 | XMS_ITS | Clinical Summary ---
Author Organization [facility] Address [address], [facility] [address] [place] [address] Phone Care Team Providers Care Loader Technician Name Role Phone Hermilo Valiente Primary Care Provider [phone] Jose Diallo MD Unavailable [phone] Allergies Active Allergy Reactions Criticality Noted Date [...] complete this topic Insurance [employer] Care Teams Loader Technician Relationship Specialty Start Date End Date Hermilo Valiente DO [address] [place] [address] PCP - General Internal Medicine 04/27/22 Jose Diallo MD [address] [place] [phone] Consulting Physician Oncology 05/01/22
--- OUTSIDE RECORDS SUMMARY | 2025-09-17 17:38 | XMS_ITS | Encounter Summary ---
Author Organization [facility] Address [address] [place] [address] Care Team Providers Care Jail Manager Name Role Phone Hermilo Valiente DO Primary Care Provider [phone] Hermilo Valiente DO Unavailable Jennifer Denise MD Unavailable [phone] Fina Morgan MD Unavailable [phone] Max Al NP Primary Care Provider + [phone] Reason for Visit * Reason Onset Date Comments [facility] Preprocedure 02/16/2024 Encounter Details Date Type Department Care Team (Late st Contact Info) Description 02/16/2024 Telephone [facility] [address] [facility] Advanced Medicine [address] [place] [address] Dereck Perrin MD [address] [place] [address] [facility] Preprocedure Social [...] often do you attend chur ch or pentecostal services? Never 01/18/2023 Do you belong to any clubs o r organizations such as episcopal groups, unions, fraternal or athletic groups, or [...] place to sleep or slept in a alf (including now)? No 01/18/2023 Personal Safety Answer Date Recorded Have you ever been in or are you currently in a harmful physical or emotional relationship or is someone making you feel afraid or unsafe? Denies 02/10/2023 Sex and Gender Information Value Date Recorded Sex Assigned at Not on file Legal Sex Male 6:00 PM TRANSFER CAR OPERATOR Gender Identity Male 05/26/2022 12:46 PM [...] on filedocumented in this encounter Care Teams Jail Manager Relationship Specialty Start Date End Date Hermilo Valiente DO PCP - General Internal Medicine 05/18/22 04/27/24 Max Al NP [address] [place] [address] PCP - General Nurse Practitioner 04/28/24 Hermilo Valiente DO Internal Medicine 05/18/22 Jennifer Denise MD Medical Oncologist/Heel Seat Sander Medical Oncology 06/09/22 Fina Morgan MD Consulting Physician Medical Oncology 07/17/22 documented as of this encounter
--- OUTSIDE RECORDS SUMMARY | 2025-09-17 17:38 | XMS_ITS | Clinical Summary ---
Author Organization [facility] Address [address] [facility] [address] [place] [address] Care Team Providers Care Cannery Worker Name Role Phone Hermilo Valiente DO Primary Care Provider [phone] Source Comments [facility],non-owned Affiliates and Associated Physician Practices is amultiple site organization consisting of ambulatory clinics and hospital sitesin [place], [place], [place] and [place]. This disclosure is being madepursuant to the Care Everywhere program and may not contain all information available regarding this patient. Last updated 18.[facility] TruLeaf Allergies Active Allergy Reactions Criticality Noted Date [...] age to complete this topic Insurance [employer] [facility] Address[facility] [id number] [place] [address] [employer] [facility] Address: [facility] [id number] [facility] [place] [address] Advance Directives * Full Code (Latest Code Status on File) Date Activated Date Inactivated Comments 05/21/2022 6:42 PM 05/22/2022 1:53 PM * Full Code Date Activated Date Inactivated Comments 05/21/2022 6:26 PM 05/21/2022 6:42 PM Care Teams Cannery Worker Relationship Specialty Start Date End Date Hermilo Valiente DO [address] [address] PCP - General Internal Medicine 05/21/22
--- OUTSIDE RECORDS SUMMARY | 2025-09-17 17:38 | XMS_ITS | Clinical Summary ---
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 Assessment & Plan (11/10/2023 7:09 PM TURNTABLE OPERATOR): Does have some ongoing axial pain [...] duloxetine. Assessment & Plan (11/10/2023 7:11 PM TURNTABLE OPERATOR): Benefit from LESI and duloxetine. Will increase duloxetine to 60mg/day. If he finds SE are worse or not worth the benefit he will continue at 30mg/day. Repeat LESI prn Assessment & Plan (08/30/2023 2:13 PM TURNTABLE OPERATOR): Though central pain is likely a [...] anaplastic large cell lymphoma diagnosed 05/30/2022 with MACHINE WELDER involvement. He has completed 6 cycles of [...] thrombocytopenia. Assessment & Plan (08/27/2022 7:45 PM TURNTABLE OPERATOR): Dx 06/2022 of LLE -cont eliquis Depression 08/27/2022 Assessment & Plan (01/15/2023 12:57 PM CDT): -continue home escitalopram 10 Assessment & Plan (08/27/2022 7:46 PM TURNTABLE OPERATOR): Cont lexapro Tear of left glenoid [...] normotension Assessment & Plan (08/27/2022 7:46 PM TURNTABLE OPERATOR): Cont losartan (for candesartan per formulary) [...] 2021 Assessment & Plan (08/27/2022 7:44 PM TURNTABLE OPERATOR): Admitted for C4 HD-MTX dose reduced [...] 06/08/2022 Assessment & Plan (08/27/2022 7:43 PM TURNTABLE OPERATOR): Dx 05/2022 with adrenal biopsy c/w [...] Problem Noted Date Diagnosed Date Resolved Date MACHINE WELDER lymphoma 07/30/2022 08/27/2022 Encounters Date Type Department Care Team Description 07/26/2025 10:30 AM CDT Office Visit [facility] Medicine Oncology [address] [place] [phone] Jennifer Denise MD 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 Never 01/18/2023 Do you belong to any clubs o r organizations such as latter day groups, unions, fraternal or athletic groups, or [...] place to sleep or slept in a jail (including now)? No 01/18/2023 Personal Safety Answer Date Recorded Have you ever been in or are you currently in a harmful physical or emotional relationship or is someone making you feel afraid or unsafe? Denies 11/07/2024 Sex and Gender Information Value Date Recorded Sex Assigned at Not on file Legal Sex Male 6:00 PM TURNTABLE OPERATOR Gender Identity Male 05/26/2022 12:46 PM [...] as needed Medical Devices Implanted Type Area Rn Disease Management Device Identifier Shelf Expiration Date Model / Serial / Lot [employer] X[employer]a Power Port 8fr [id number] - [id number] Implanted:Qty: 1 on 07/16/2022 at [facility] [employer] 04/05/2027 [id number] / / [id number] Procedures Procedure Name Priority Date/Time Associated Diagnosis [...] 07/26/2025 10:06 AM CDT us Jacki Lee DIRECTOR VACCINE LAB BLOOD ORDERABLES Final Result [facility] Department [place] [address] * Differential, auto (07/26/2025 9:47 AM CDT) Neutrophil abs 3.88 1.50 - 6.50 K/cumm Comment:Testing performed by : [facility], [address] [place] [address] Lymphocyte abs 1.70 0.80 - 3.30 K/cumm CERNER NELDA Comment:Testing performed by : [facility], [address] [place], [place] [phone] Monocyte abs 0.57 0.20 - 0.80 K/cumm CERNER NELDA Comment:Testing performed by : [facility], [address] [place], [place] [phone] Eosinophil abs 0.04 0.00 - 0.50 K/cumm CERMACRINA LUTZ Comment:Testing performed by : [facility], [address] [place] [phone] Basophil abs 0.02 0.00 - 0.10 K/cumm CERNER BJ Comment:Testing performed by : [facility], [address] [place] [phone] Neutrophil pct 62.5 % CERNER BJ Comment: Interpretive Data Percent cell count reference ranges are not reported, since discordance with absolute values may lead to misinterpretation of CBC data. Current Interpretive Data was last revised on 2018. Testing performed by: [facility], [address] [place] [phone] Lymphocyte pct 27.4 % CERNER BJ Comment: Interpretive Data Percent cell count reference ranges are not reported, since discordance with absolute values may lead to misinterpretation of CBC data. Current Interpretive Data was last revised on 2018. Testing performed by: [facility], [address] [place] [phone] Monocyte pct 9.1 % DENIS LUTZ Comment: Interpretive Data Percent cell count reference ranges are not reported, since discordance with absolute values may lead to misinterpretation of CBC data. Current Interpretive Data was last revised on 2018. Testing performed by: [facility], [address] [place] [phone] Eosinophil pct 0.7 % DENIS LUTZ Comment: Interpretive Data Percent cell count reference ranges are not reported, since discordance with absolute values may lead to misinterpretation of CBC data. Current Interpretive Data was last revised on 2018. Testing performed by: [facility], [address] [place] [phone] Basophil pct 0.3 % DENIS LUTZ Comment: Interpretive Data Percent cell count reference ranges are not reported, since discordance with absolute values may lead to misinterpretation of CBC data. Current Interpretive Data was last revised on 2018. Testing performed by: [facility], [address] [place] [phone] Blood 07/26/2025 9:47 AM CDT 07/26/2025 9:57 AM CDT us Jacki Lee DIRECTOR VACCINE LAB BLOOD ORDERABLES Final Result [facility] Department [place] [address] * CBC with auto differential (07/26/2025 9:47 AM CDT) WBC 6.21 3.80 - 9.90 K/cumm Comment:Testing performed by : [facility], [address] [place] [phone] Hgb 16.7 13.0 - 17.5 g/dL DENIS LUTZ Comment:Testing performed by : [facility], [address] [place] [phone] Hct 49.1 38.9 - 50.3 % DENIS LUTZ Comment:Testing performed by : [facility], [address] [place] [address] Plt 174 150 - 400 K/cumm DENIS LUTZ Comment:Testing performed by : [facility], [address] [place] [address] MPV 7.6 6.8 - 10.4 fL DENIS LUTZ Comment:Testing performed by : [facility], [address] [place] [address] RBC 5.20 4.30 - 5.80 M/cumm DENIS LUTZ Comment:Testing performed by : [facility], [address] [place] [address] MCV 94.5 81.3 - 96.4 fL DENIS LUTZ Comment:Testing performed by : [facility], [address] [place] [address] MCH 32.1 27.1 - 33.3 pg DENIS LUTZ Comment:Testing performed by : [facility], [address] [place] [address] MCHC 33.9 32.3 - 35.7 g/dL [facility] Comment:Testing performed by : [facility], [address] [place] [address] RDW CV 13.4 11.1 - 14.9 % [facility] Comment:Testing performed by : [facility], [address] [place] [address] NRBC abs 0.00 0.00 - 0.01 K/cumm DENIS LUTZ Comment:Testing performed by : [facility], [address] [place] [address] Blood 07/26/2025 9:47 AM CDT 07/26/2025 9:57 AM CDT us Jacki Lee DIRECTOR VACCINE LAB BLOOD ORDERABLES Final Result DENIS LUTZ [facility] Department of Laboratories [place], [place] [id number] * Lactate dehydrogenase (LD) (07/26/2025 9:47 AM CDT) Lactate dehydrogenase (LDH) 157 100 - 250 Units/L Blood 07/26/2025 9:47 AM CDT 07/26/2025 10:06 AM CDT us Jacki Lee DIRECTOR VACCINE LAB BLOOD ORDERABLES Final Result [facility] Department [place] [address] * (ABNORMAL) Comprehensive metabolic panel (07/26/2025 9:47 AM CDT) Pathologist [facility] Sodium 141 135 - 145 mmol/L Potassium, pl 4.4 3.3 - 4.9 mmol/L [facility] Chloride 104 97 - 110 mmol/L [facility] CO2 29 22 - 32 mmol/L [facility] Anion gap 8 2 - 15 mmol/L [facility] BUN 8 6 - 25 mg/dL [facility] Creatinine 0.75(L) 0.80 - 1.30 mg/dL [facility] Glucose 89 70 - 199 mg/dL [facility] Comment: Interpretive Data Fasting glucose >/= [...] 2022. Calcium 9.1 8.5 - 10.3 mg/dL [facility] Bilirubin, total 0.5 0.1 - 1.2 mg/dL [facility] Protein, pl 6.7 6.5 - 8.5 g/dL [facility] Albumin 4.4 3.5 - 5.0 g/dL [facility] Alk phos 83 40 - 130 Units/L [facility] ALT 84(H) 7 - 55 Units/L [facility] AST 40 10 - 50 Units/L [facility] Blood 07/26/2025 9:47 AM CDT 07/26/2025 10:06 AM CDT us Jacki Lee DIRECTOR VACCINE LAB BLOOD ORDERABLES Final Result Performing Organization Address City/[facility]/ZIP Co de Phone Number [facility] Department [place] [address] * Hepatitis panel, acute (06/05/2022 2:52 AM CDT) Hep A IgM Nonreactive Nonreactive [facility] Comment: Interpretive Data: If Hep A IgM Ab is reported as Equivocal, a new sample should be drawn in two weeks for testing. Current interpretive data was last revised on 20. Hep B core IgM Nonreactive Nonreactive [facility] Comment: Interpretive Data If HepB Core IgM Ab is reported as Equivocal, a new sample should be drawn in two weeks for testing. Current interpretive data was last revised on 20. Hep C Ab Nonreactive Nonreactive [facility] Comment:Antibodies to HCV no t detected. Does NOT exclude the possibility of recent exposure to HCV. HepBsAg Nonreactive Nonreactive [facility] Blood 06/05/2022 2:52 AM CDT 06/05/2022 3:00 AM CDT us Elenita Hinojosa DIRECTOR VACCINE LAB MICROBIOLOGY - GENERA L ORDERABLES Edited Result - Final Performing Organization Address [facility]/ZIP Co de Phone Number [facility] Department [place] [address] from Last 3 Months or Most Recently Relevant to Health Maintenance Insurance [facility]/PPO Address: [address] [address] [place] [address] GENERIC COPAY ASSIST [facility] [employer]/PPO Address: [address] [address] [place] [address] Advance Directives For more information, please contact: [phone] * Full Code (Latest Code Status on [...] 2:05 PM 09/27/2022 1:37 PM Care Teams Media Buyer Relationship Specialty Start Date End Date Max Al NP [address] [facility] [address] [facility] [address] [place] [address] PCP - General Nurse Practitioner 04/28/24 Hermilo Valiente DO Internal Medicine 05/18/22 Jennifer Denise MD Medical Oncologist/Osha Inspector Medical Oncology 06/09/22 Fina Morgan MD Consulting Physician Medical Oncology 07/17/22
== END 2025-09-17 17:41 | disposition home or self-care (01) ==
LOC: ANHED 17:35
PROVIDERS: Emergency Provider Physician Assistant; PCP Nurse Practitioner
DX: S20.212A Contusion of left front wall of thorax, initial encounter (principal); S29.8XXA Other specified injuries of thorax, initial encounter; W00.0XXA Fall on same level due to ice and snow, initial encounter; I10 Essential (primary) hypertension; K21.9 Gastro-esophageal reflux disease without esophagitis; E78.2 Mixed hyperlipidemia; Z85.72 Personal history of non-Hodgkin lymphomas; Z87.891 Personal history of nicotine dependence
CPT/HCPCS: 71046; 71100; 99283; A9270